=== PATIENT | female | born 1935 | race Hispanic/Latino ===

== ENCOUNTER 2017-05-24 12:56 | Emergency (ER) | payer MEDICARE, OTHER ==
[2017-05-24 12:56] VITALS: BMI 23.9
--- NOTE | 2017-05-24 13:58 | ED PDOC ---
Arrival/HPI - General Historian: Patient - History of Present Illness Time/Duration: Other (3 days.) Symptom Course: Worsening Quality: Aching Context: Home <Argelia Garza - Last Filed: 05/24/17 17:02> <Miguel Samson - Last Filed: 05/24/17 17:38> - General Chief Complaint: Back Pain Time Seen by Provider: 05/24/17 13:37 - History of Present Illness Narrative History of Present Illness (Text): 05/24/17 13:55 Patient is an 81 y/o with pmh of htn, hld, spinal stenosis s/p surgery, h/o Ed visits with knee pain, and falls presenting with back pain. Patient states she fell 3 days ago, and since then she has been experiencing lower back pain, worst when she tries to get up from seating position. Patient didn't try any pain meds at home. patient denies bowel or bladder incontinence. Patient states she recently saw Dr Anderson for right leg/knee pain, and was prescribed gabapentin 400 mg tid. patient states she took the med on two different occasions and each time she took it she fell. Denies hitting her head, states she fell forward. Denies cp, sob, n/v/d. Patient uses a walker to walk. Denies feeling dizzy and LOC prior to falling. (Argelia Garza) Past Medical History - Provider Review Nursing Documentation Reviewed: Yes - Travel History Have you recently traveled outside [place] w/in the past 3 mons?: No - Tetanus Immunization Tetanus Immunization: Unknown - Cardiac Hx Cardiac Disorders: Yes Hx Hypertension: Yes - Pulmonary Hx Respiratory Disorders: No - Neurological Hx Neurological Disorder: No - HEENT Hx HEENT Disorder: No - Renal Hx Renal Disorder: No - Endocrine/Metabolic Hx Endocrine Disorders: No - Hematological/Oncological Hx Blood Disorders: No - Integumentary Hx Dermatological Disorder: No - Musculoskeletal/Rheumatological Hx Musculoskeletal Disorders: Yes Hx Falls: Yes Hx Spinal Stenosis: Yes - Gastrointestinal Hx Gastrointestinal Disorders: No - Genitourinary/Gynecological Hx Genitourinary Disorders: No - Psychiatric Hx Psychophysiologic Disorder: No Hx Substance Use: No - Surgical History Other/Comment: benign right breast cyst "many yrs ago" - Anesthesia Hx Anesthesia Reactions: No Hx Malignant Hyperthermia: No - Suicidal Assessment Feels Threatened In Home Enviroment: No <Argelia Garza - Last Filed: 05/24/17 17:02> Family/Social History - Physician Review Nursing Documentation Reviewed: Yes Family/Social History: No Known Family HX Smoking Status: Never Smoked Hx Alcohol Use: No Hx Substance Use: No Hx Substance Use Treatment: No <MónicasaltyArgelia persaud - Last Filed: 05/24/17 17:02> Allergies/Home Meds <Argelia Garza - Last Filed: 05/24/17 17:02> <Eduardo Samsoncooper - Last Filed: 05/24/17 17:38> Allergies/Adverse Reactions: Allergies No Known Allergies Allergy (Verified 05/24/17 13:22) Home Medications: Home Meds Medication Instructions Recorded Confirmed ALPRAZolam [Xanax] 1 mg PO BID 01/09/17 05/24/17 Aspirin [Aspirin Chewable] 81 mg PO DAILY 01/09/17 05/24/17 Lisinopril [Zestril] 10 mg PO .AM 01/09/17 05/24/17 Nebivolol [Bystolic] 10 mg PO HS 01/09/17 05/24/17 Pravastatin Sodium [Pravachol] 40 mg PO HS 01/09/17 05/24/17 Calcium Carbonate/Vitamin D 1 tab PO DAILY 05/24/17 05/24/17 [Oscal-D 250 mg-125 Units Tab] Review of Systems - Review of Systems Constitutional: Normal Eyes: Normal ENT: Normal Respiratory: Normal Cardiovascular: Normal Gastrointestinal: Normal Genitourinary Female: Normal Musculoskeletal: Back Pain Skin: Normal Neurological: Normal Endocrine: Normal Hemo/Lymphatic: Normal Psychiatric: Normal <MónicasaltyArgelia persaud - Last Filed: 05/24/17 17:02> Physical Exam Vital Signs Reviewed: Yes Temperature: Afebrile Blood Pressure: Normal Pulse: Regular Respiratory Rate: Normal Appearance: Positive for: Well-Appearing, Non-Toxic, Comfortable Pain Distress: None Mental Status: Positive for: Alert and Oriented X 3 - Systems Exam Head: Present: Atraumatic, Normocephalic Pupils: Present: PERRL Mouth: Present: Moist Mucous Membranes Neck: Present: Normal Range of Motion. No: JVD Respiratory/Chest: Present: Clear to Auscultation, Good Air Exchange. No: Respiratory Distress, Accessory Muscle Use, Wheezes, Rales, Retracting, Rhonchi , Tachypneic Cardiovascular: Present: Regular Rate and Rhythm, Normal S1, S2. No: Murmurs, Tachycardic, Bradycardic Abdomen: Present: Normal Bowel Sounds. No: Tenderness, Distention, Rebound, Guarding Back: Present: Normal Inspection, Paraspinal Tenderness (on the right. ). No: CVA Tenderness, Midline Tenderness, Pain with Leg Raise, Decubitus Ulcer Upper Extremity: Present: Normal Inspection. No: Cyanosis, Edema Lower Extremity: No: Normal Inspection, Edema Neurological: Present: GCS=15, CN II-XII Intact, Speech Normal, Motor Func Grossly Intact, Normal Sensory Function, Other (limited ROM due to pain, L4-S1 region. Left lower extremities weaker than the right. ). No: Gait Normal ( unable to ambulate without a walker, pain when ambulating with a walker. ) Skin: Present: Warm, Dry, Normal Color. No: Rashes Psychiatric: Present: Alert, Oriented x 3, Normal Insight, Normal Concentration <Argelia Garza - Last Filed: 05/24/17 17:02> Medical Decision Making Re-evaluation Time: 16:40 Reassessment Condition: Improving,but remains with symptoms - Lab Interpretations I have reviewed the lab results: Yes - RAD Interpretation Sports Editor: ED Physician - EKG Interpretation Interpreted by ED Physician: Yes Type: 12 lead EKG <Argelia Garza - Last Filed: 05/24/17 17:02> <Miguel Samson - Last Filed: 05/24/17 17:38> ED Course and Treatment: 05/24/17 14:53 Patient is an 81 y/o with pmh of spinal stenosis s/p surgery 4 years ago, htn, hld, neuropathy presenting with lower back pain 2nd to falls. Differential diagnosis: spinal stenosis, herniated disc, muscle strain, compression fracture, OA Plan: CBC, CMP, CARDIAC ISO EKG, CHEST X-RAY L -SPINE X-RAY Tylenol for pain and Reassess Discussed with Dr Samson. 05/24/17 17:05 CT head with no acute ischemic changes, no hemorrhage. Basic labs are normal. Patient states the back pain has improved, however patient is still very weak in the left lower extremities. 05/24/17 17:[address] Dupree's call service, awaiting response. Spoke to patient about keeping her for observation for further work up to rule out spinal compression due to left lower extremities weakness, and difficulties with ambulation. Patient refused to stay. Patient states she rather go home and follow up as outpatient. Patient understands she can come back to the ED at anytime if symptoms worsens or persists. Patient is a&ox3, able to make medical decision for herself, understands the benefits of staying and risk of signing out AMA, including the risk of spinal compression fracture. Patient is able to repeat these plan. 05/24/17 17:23 Dr Samson spoke to Dr Dupree, Dr Dupree will be following up with the patient tomorrow. 05/24/17 17:26 Patient advised to take Tylenol as needed for pain. And return to the ED if symptoms worsens or have new symptoms. (Argelia Garza) 05/24/17 17:34 Patient seen and examined with medical observer. I interviewed patient and reviewed labs and imaging studies. On my exam, patient with some weakness noted to her left left with raising above bed, but reflexes intact, no incontinence of urine or stool, no headache, no facial droop, no weakness to upper extremities. There is midline lower lumbar pain with no fever, no edema, no erythema midline. There is MINIMAL pain with straight leg testing. No saddle anesthesia. Patient is noted to have symptoms of "falling" and "legs giving out" "ever since I was started on Gabapentin". Review of past available records reveal no recent lumbar imaging studies. Xray of lumbar spine and ct head reviewed with patient. I have recommended MRI of lumbar spine and brain base on left leg weakness, although she states she has been using a walker for months and denies any acute weakness. I have recommended admission for further evaluation of pain and weakness, patient was advised of indications, and risks of signing out against medical advice. Case discussed with Dr. Denzel Dupree, dispostion of AMA reviewed with PMD who states he will perform follow-up with patient tomorrow. (Miguel Samson) - Lab Interpretations Lab Results: 05/24/17 14:10 05/24/17 14:10 Lab Results 05/24/17 14:10: Sodium 139, Potassium 4.9, Chloride 104, Carbon Dioxide 24, Anion Gap 16, BUN 23 H, Creatinine 0.8, Est GFR ( Amer) > 60, Est GFR ( Non-Af Amer) > 60, Random Glucose 91, Calcium 10.2, Total Bilirubin 0.4, AST 20 , ALT 28, Alkaline Phosphatase 82, Lactate Dehydrogenase 516, Total Creatine Kinase 36, Troponin I < 0.01, Total Protein 8.1, Albumin 4.3, Globulin 3.8, Albumin/Globulin Ratio 1.1 05/24/17 14:10: WBC 10.4 D, RBC 3.67, Hgb 11.2 L, Hct 34.4 L, MCV 93.7, MCH 30.5, MCHC 32.6, RDW 14.1, Plt Count 341, MPV 10.3, Gran % 79.0 H, Lymph % (Auto ) 14.8 L, [place] % (Auto) 5.2, Eos % (Auto) 0.8 L, Baso % (Auto) 0.2, Gran # 8.25 H, Lymph # 1.5, [place] # 0.5, Eos # 0.1, Baso # 0.02 - RAD Interpretation Narrative RAD Interpretations (Text): 05/24/17 16:44 CT head w/o contrast: FINDINGS: HEMORRHAGE: No intracranial hemorrhage. BRAIN: There are mild chronic microangiopathic changes. There is no mass, mass effect or abnormal extra-axial fluid collection. VENTRICLES: There is mild age-related global parenchymal volume loss and proportionate enlargement of the ventricles and cortical sulci. CALVARIUM: There is no calvarial fracture or extracranial soft tissue swelling. There is mild hyperostosis frontalis interna. PARANASAL SINUSES: Unremarkable as visualized. No significant inflammatory changes. MASTOID AIR CELLS: Unremarkable as visualized. No inflammatory changes. OTHER FINDINGS: None. IMPRESSION: No acute intracranial abnormality. If there is a persistent focal neurologic deficit and an ongoing clinical concern for acute infarction, an MRI of the brain without intravenous contrast would be a more sensitive modality for evaluation of hyperacute/acute ischemic infarction. Mild chronic microangiopathic changes and mild age-related global parenchymal volume loss. (Argelia Garza) Radiology Orders: 05/24/17 13:51 LS SPINE WITH OBL > 18 YRS OLD [RAD] Stat 05/24/17 14:09 CHEST ONE VIEW [RAD] Stat 05/24/17 15:11 HEAD W/O CONTRAST [CT] Stat - EKG Interpretation EKG Interpretation (Text): 05/24/17 16:46 NSR at HR of 73 bmp. No MO or QTC prolongation normal axis No acute ST/T wave changes. (Argelia Garza) - Medication Orders Current Medication Orders: Discontinued Medications Acetaminophen (Tylenol 325mg Tab) 650 mg PO STAT STA Stop: 05/24/17 14:13 Last Admin: 05/24/17 14:45 Dose: 650 mg - PA / RECYCLING TECHNICIAN / Resident Statement / has reviewed & agrees with the documentation as recorded. / has examined the patient and agrees with the treatment plan. <Miguel Samson - Last Filed: 05/24/17 17:38> Disposition/Present on Arrival - Present on Arrival Any Indicators Present on Arrival: No History of DVT/PE: No History of Uncontrolled Diabetes: No Urinary Catheter: No History of Decub. Ulcer: No History Surgical Site Infection Following: None - Disposition Have Diagnosis and Disposition been Completed?: No Disposition Time: 17:26 <Argelia Garza - Last Filed: 05/24/17 17:02> - Disposition Have Diagnosis and Disposition been Completed?: Yes Patient Plan: Discharge <Miguel Samson - Last Filed: 05/24/17 17:38> - Disposition Diagnosis: Back pain, Leg weakness Disposition: AGAINST MEDICAL ADVICE Patient Problems: Current Active Problems Problem Status Onset Back pain Acute Condition: STABLE Referrals: Joaquin Dupree MD [Primary Care Provider] - Follow up with primary
[2017-05-24 14:41] LABS: ADD MANUAL DIFF? NO
[2017-05-24 14:46] LABS: BASO # 0.02 K/mm3 (0.0-2.0); BASO % 0.2 % (0.0-3.0); EOS # 0.1 (0.0-0.7); EOS % 0.8 % (1.5-5.0); GRAN # 8.25 (1.4-6.5); HEMATOCRIT 34.4 % (36.0-48.0); LYMPH # 1.5 (1.2-3.4); LYMPH % 14.8 % (22.0-35.0); MEAN CELL VOLUME 93.7 fL (80.0-105.0); MEAN CORPUSCULAR HEMOGLOBIN 30.5 pg (25.0-35.0); MEAN CORPUSCULAR HGB CONC 32.6 g/dl (31.0-37.0); MEAN PLATELET VOLUME 10.3 fl (7.0-11.0); MONO # 0.5 (0.1-0.6); MONO % 5.2 % (1.0-6.0); PLATELET COUNT 341 10^3/uL (120.0-450.0); RED CELL DISTRIBUTION WIDTH 14.1 % (11.5-14.5); WHITE BLOOD COUNT 10.4 10^3/ul (4.5-11.0)
[2017-05-24 14:55] LABS: ALB/GLOB RATIO 1.1 (1.1-1.8); ALKALINE PHOSPHATASE 82 U/L (38-133); ALT/SGPT 28 U/L (7-56); AST/SGOT 20 U/L (15-39); BILIRUBIN,TOTAL 0.4 mg/dL (0.2-1.3); BLOOD UREA NITROGEN 23 mg/dL (7-21); CALCIUM 10.2 mg/dL (8.4-10.5); CARBON DIOXIDE 24 mmol/L (21-33); CHLORIDE 104 mmol/L (98-107); GFR AFRICAN-AMERICAN > 60; GLUCOSE,RANDOM 91 mg/dL (70-110); POTASSIUM 4.9 mmol/L (3.6-5.0); SODIUM 139 mmol/L (132-148); TOTAL PROTEIN 8.1 g/dL (5.8-8.3)
[2017-05-24 15:06] LABS: TROPONIN I < 0.01 ng/mL
--- NOTE | 2017-05-24 15:37 | CT ---
PROCEDURE: CT HEAD WITHOUT CONTRAST. HISTORY: Left leg weakness COMPARISON: 06/07/2011. TECHNIQUE: Axial computed tomography images were obtained through the head/brain without intravenous contrast. Radiation dose: Total exam DLP = 769.04 mGy-cm. This CT exam was performed using one or more of the following dose reduction techniques: Automated exposure control, adjustment of the mA and/or kV according to patient size, and/or use of iterative reconstruction technique. FINDINGS: HEMORRHAGE: No intracranial hemorrhage. BRAIN: There are mild chronic microangiopathic changes. There is no mass, mass effect or abnormal extra-axial fluid collection. VENTRICLES: There is mild age-related global parenchymal volume loss and proportionate enlargement of the ventricles and cortical sulci. CALVARIUM: There is no calvarial fracture or extracranial soft tissue swelling. There is mild hyperostosis frontalis interna. PARANASAL SINUSES: Unremarkable as visualized. No significant inflammatory changes. MASTOID AIR CELLS: Unremarkable as visualized. No inflammatory changes. OTHER FINDINGS: None. IMPRESSION: No acute intracranial abnormality. If there is a persistent focal neurologic deficit and an ongoing clinical concern for acute infarction, an MRI of the brain without intravenous contrast would be a more sensitive modality for evaluation of hyperacute/acute ischemic infarction. Mild chronic microangiopathic changes and mild age-related global parenchymal volume loss.
--- NOTE | 2017-05-24 17:32 | RAD ---
PROCEDURE: Radiographs of the Lumbar Spine. HISTORY: fall COMPARISON: No prior. FINDINGS: BONES: Normal alignment. No listhesis. No fracture. DISC SPACES: Disc degeneration at L5-S1 OTHER FINDINGS: There is laminectomy at the L5 level. 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 Laminectomy at the L5 level
--- NOTE | 2017-05-24 17:32 | RAD ---
PROCEDURE: CHEST RADIOGRAPH, 1 VIEW HISTORY: fall COMPARISON: 02/25/2014 FINDINGS: LUNGS: Clear. PLEURA: No pneumothorax or pleural fluid seen. CARDIOVASCULAR: Normal. OSSEOUS STRUCTURES: No significant abnormalities. VISUALIZED UPPER ABDOMEN: Normal. OTHER FINDINGS: None. IMPRESSION: No active disease.
[2017-05-24 17:34] VITALS: BP 118/73; PULSE 72; RESP 18; TEMP 97.6; O2SAT 99
--- NOTE | 2017-05-24 22:05 | CARD ---
APPROVED REPORT EKG Measurement Heart [id number] <Conclusion> Normal sinus rhythm Normal ECG
== END 2017-05-24 17:40 | disposition left against medical advice (07) ==
LOC: ED 12:56
DX: M54.9 Dorsalgia, unspecified (principal); R53.1 Weakness; I10 Essential (primary) hypertension; E78.5 Hyperlipidemia, unspecified

== ENCOUNTER 2017-05-26 14:08 | Emergency (ER) | payer MEDICARE, OTHER ==
[2017-05-26 14:43] VITALS: PULSE 77; RESP 16; TEMP 98; O2SAT 99; BMI 26.4
--- NOTE | 2017-05-26 15:28 | ED PDOC ---
Arrival/HPI - General Chief Complaint: Back Pain Time Seen by Provider: 05/26/17 14:39 Historian: Patient - History of Present Illness Narrative History of Present Illness (Text): 05/26/17 15:21 81 year old female whose past medical history includes hypertension, hyperlipidemia, and spinal stenosis presents to the emergency department complaining of back pain for the past few days. She states she saw her neurologist and was given Gabapentin 400 but it was too strong and caused her to fall 3 times last week. Patient reports she was seen in the ER 2 days ago but did not want admission. Denies leg weakness or numbness. Previous notes say weakness but she states that she never had leg weakness. Denies urinary symptoms. No recent follow up with an orthopedist or surgeon. PMD: Dr. Dupree Neurologist: Dr. Smith Time/Duration: < week Symptom Onset: Gradual Symptom Course: Unchanged Associated Symptoms (Text): None Past Medical History - Provider Review Nursing Documentation Reviewed: Yes - Tetanus Immunization Tetanus Immunization: Unknown - Cardiac Hx Cardiac Disorders: Yes Hx Hypertension: Yes - Pulmonary Hx Respiratory Disorders: No - Neurological Hx Neurological Disorder: No - HEENT Hx HEENT Disorder: No - Renal Hx Renal Disorder: No - Endocrine/Metabolic Hx Endocrine Disorders: No - Hematological/Oncological Hx Blood Disorders: No - Integumentary Hx Dermatological Disorder: No - Musculoskeletal/Rheumatological Hx Musculoskeletal Disorders: Yes Hx Falls: Yes Hx Spinal Stenosis: Yes - Gastrointestinal Hx Gastrointestinal Disorders: No - Genitourinary/Gynecological Hx Genitourinary Disorders: No - Psychiatric Hx Psychophysiologic Disorder: No Hx Substance Use: No - Surgical History Other/Comment: benign right breast cyst "many yrs ago" - Anesthesia Hx Anesthesia Reactions: No Hx Malignant Hyperthermia: No - Suicidal Assessment Feels Threatened In Home Enviroment: No Family/Social History - Physician Review Nursing Documentation Reviewed: Yes Family/Social History: Unknown Family HX Smoking Status: Never Smoked Hx Alcohol Use: No Hx Substance Use: No Hx Substance Use Treatment: No Allergies/Home Meds Allergies/Adverse Reactions: Allergies No Known Allergies Allergy (Verified 05/24/17 13:22) Home Medications: Home Meds Medication Instructions Recorded Confirmed ALPRAZolam [Xanax] 1 mg PO BID 01/09/17 05/26/17 Aspirin [Aspirin Chewable] 81 mg PO DAILY 01/09/17 05/26/17 Lisinopril [Zestril] 10 mg PO .AM 01/09/17 05/26/17 Nebivolol [Bystolic] 10 mg PO HS 01/09/17 05/26/17 Pravastatin Sodium [Pravachol] 40 mg PO HS 01/09/17 05/26/17 Calcium Carbonate/Vitamin D 1 tab PO DAILY 05/24/17 05/26/17 [Oscal-D 250 mg-125 Units Tab] Review of Systems - Physician Review All systems were reviewed & negative as marked: Yes - Review of Systems Genitourinary Female: absent: Dysuria, Frequency, Hematuria Musculoskeletal: Back Pain Neurological: Other (No lower extremity weakness or numbness ) Physical Exam Vital Signs Reviewed: Yes Vital Signs Temp Pulse Resp BP Pulse Ox 05/26/17 15:41 157/64 H 05/26/17 14:41 98.0 F 77 16 121/64 99 Temperature: Afebrile Blood Pressure: Normal Pulse: Regular Respiratory Rate: Normal Appearance: Positive for: Well-Appearing, Non-Toxic, Uncomfortable Pain Distress: Mild Mental Status: Positive for: Alert and Oriented X 3 - Systems Exam Head: Present: Atraumatic, Normocephalic Pupils: Present: PERRL Extroacular Muscles: Present: EOMI Conjunctiva: Present: Normal Mouth: Present: Moist Mucous Membranes Neck: Present: Normal Range of Motion Respiratory/Chest: Present: Clear to Auscultation, Good Air Exchange. No: Respiratory Distress, Accessory Muscle Use Cardiovascular: Present: Regular Rate and Rhythm, Normal S1, S2. No: Murmurs Abdomen: Present: Normal Bowel Sounds. No: Tenderness, Distention, Peritoneal Signs Back: No: CVA Tenderness, Midline Tenderness, Paraspinal Tenderness, Pain with Leg Raise Upper Extremity: Present: Normal Inspection. No: Cyanosis, Edema Lower Extremity: Present: Normal Inspection. No: Edema Neurological: Present: GCS=15, CN II-XII Intact, Speech Normal, Motor Func Grossly Intact, Normal Sensory Function, Normal Cerebellar Funct, Norm Deep Tendon Reflexes, Gait Normal (No ataxia), Memory Normal, Normal 2Pt Descrimination Skin: Present: Warm, Dry, Normal Color. No: Rashes Psychiatric: Present: Alert, Oriented x 3, Normal Insight, Normal Concentration Medical Decision Making ED Course and Treatment: Impression: 81 year old female whose past medical history includes hypertension , hyperlipidemia, and spinal stenosis presents to the emergency department complaining of back pain for the past few days. Differential Diagnosis included but are not limited to: Acute on Chronic Back Pain Plan: -- Flexeril, Toradol -- Reassess and disposition Prior Visits: Notes and results from previous visits were reviewed. Patient last seen in the ED on 05/24/17 for back pain and signed out AMA. Progress Notes: Upon reevaluation, patient felt much better. She is able to walk without ataxia. On exam she has no injuries. She denies lightheadedness or dizziness. She will make sure to follow up with her primary care doctor in 1-2days to discuss options for her chronic back pain. - Medication Orders Current Medication Orders: Discontinued Medications Cyclobenzaprine HCl (Flexeril) 5 mg PO STAT STA Stop: 05/26/17 14:51 Last Admin: 05/26/17 15:32 Dose: 5 mg Ketorolac Tromethamine (Toradol) 30 mg IM STAT STA Stop: 05/26/17 14:51 Last Admin: 05/26/17 15:32 Dose: 30 mg - Scribe Statement The provider has reviewed the documentation as recorded by the Ted Baker Provider Scribe Attestation: All medical record entries made by the Ted were at my direction and personally dictated by me. I have reviewed the chart and agree that the record accurately reflects my personal performance of the history, physical exam, medical decision making, and the department course for this patient. I have also personally directed, reviewed, and agree with the discharge instructions and disposition. Disposition/Present on Arrival - Present on Arrival Any Indicators Present on Arrival: No History of DVT/PE: No History of Uncontrolled Diabetes: No Urinary Catheter: No History of Decub. Ulcer: No History Surgical Site Infection Following: None - Disposition Have Diagnosis and Disposition been Completed?: Yes Diagnosis: Back pain Disposition: HOME/ ROUTINE Disposition Time: 16:17 Patient Plan: Discharge Condition: IMPROVED Discharge Instructions (ExitCare): Back Pain (ED) Additional Instructions: Ms Laird, thank you for letting us take care of you today. Your provider was Dr. Ward. You were treated for Back Pain. The emergency medical care you received today was directed at your acute symptoms. If you were prescribed any medication, please fill it and take as directed. It may take several days for your symptoms to resolve. Return to the Emergency Department if your symptoms worsen, do not improve, or if you have any other problems. Please contact your doctor or call one of the physicians/clinics you have been referred to that are listed on the Patient Visit Information form that is included in your discharge packet. Bring any paperwork you were given at discharge with you along with any medications you are taking to your follow up visit. Our treatment cannot replace ongoing medical care by a primary care provider (PCP) outside of the emergency department. Thank you for allowing the [facility] team to be part of your care today. If you had an X-Ray or CT scan: A Radiologist will review the ED reading if any change in treatment is needed we will contact you. If you had a blood, urine, or wound culture: It will take several days for the results, if any change in treatment is needed we will contact you. If you had an STI test: It will take 48 hours for the results. Please call after 1 week if you have not heard back. Prescriptions: Cyclobenzaprine [Flexeril] 5 mg PO Q8 PRN #20 tab PRN Reason: Pain, Moderate (4-7) Naproxen 500 mg PO BID PRN #30 tab PRN Reason: Pain, Moderate (4-7) Referrals: Joaquin Dupree MD [Primary Care Provider] - Follow up with primary
[2017-05-26 15:41] VITALS: BP 157/64
== END 2017-05-26 16:17 | disposition home or self-care (01) ==
LOC: ED 14:08
DX: M54.9 Dorsalgia, unspecified (principal); I10 Essential (primary) hypertension
CPT/HCPCS: 96372; 99284; J1885

== ENCOUNTER 2017-07-12 10:36 | Emergency (ER) | payer MEDICARE, OTHER ==
[2017-07-12 10:36] VITALS: BMI 26.4
[2017-07-12 10:58] VITALS: TEMP 98.4
--- NOTE | 2017-07-12 11:15 | ED PDOC ---
Arrival/HPI - General Chief Complaint: Headache Time Seen by Provider: 07/12/17 10:48 Historian: Patient - History of Present Illness Narrative History of Present Illness (Text): 07/12/17 10:50 A 82 year old female, whose past medical history includes hypertension, hyperlipidemia, and spinal stenosis, presents to the emergency department complaining of headache since last night. Patient reports had a fall on June 13 and had no headache post-fall. No other falls. She took Aleve for the headache but did not relieve symptom. Patient denies any numbness/weakness, focal weakness, speech changse, head trauma, or any other complaints. Patient ambulates with walker. PMD: Dr. Dupree Time/Duration: Other (20:30 last night) Symptom Onset: Sudden Symptom Course: Unchanged Severity Level: 6 Activities at Onset: Rest, Light Context: Home Past Medical History - Provider Review Nursing Documentation Reviewed: Yes - Infectious Disease Hx of Infectious Diseases: None - Tetanus Immunization Tetanus Immunization: Unknown - Reproductive Menopause: Yes - Cardiac Hx Cardiac Disorders: Yes Hx Hypertension: Yes - Pulmonary Hx Respiratory Disorders: No - Neurological Hx Neurological Disorder: No - HEENT Hx HEENT Disorder: No - Renal Hx Renal Disorder: No - Endocrine/Metabolic Hx Endocrine Disorders: No - Hematological/Oncological Hx Blood Disorders: No - Integumentary Hx Dermatological Disorder: No - Musculoskeletal/Rheumatological Hx Musculoskeletal Disorders: Yes Hx Falls: Yes Hx Spinal Stenosis: Yes - Gastrointestinal Hx Gastrointestinal Disorders: No - Genitourinary/Gynecological Hx Genitourinary Disorders: No - Psychiatric Hx Psychophysiologic Disorder: No Hx Substance Use: No - Surgical History Other/Comment: benign right breast cyst "many yrs ago" - Anesthesia Hx Anesthesia Reactions: No Hx Malignant Hyperthermia: No - Suicidal Assessment Feels Threatened In Home Enviroment: No Family/Social History - Physician Review Nursing Documentation Reviewed: Yes Family/Social History: No Known Family HX Smoking Status: Never Smoked Hx Alcohol Use: No Hx Substance Use: No Hx Substance Use Treatment: No Allergies/Home Meds Allergies/Adverse Reactions: Allergies No Known Allergies Allergy (Verified 05/24/17 13:22) Home Medications: Home Meds Medication Instructions Recorded Confirmed ALPRAZolam [Xanax] 1 mg PO BID 01/09/17 07/12/17 Aspirin [Aspirin Chewable] 81 mg PO DAILY 01/09/17 07/12/17 Nebivolol [Bystolic] 10 mg PO HS 01/09/17 07/12/17 Pravastatin Sodium [Pravachol] 40 mg PO HS 01/09/17 07/12/17 Alprazolam [Xanax Xr] 1 mg PO PRN 07/12/17 07/12/17 Calcium Carbonate/Vitamin D 1 tab PO DAILY 07/12/17 07/12/17 [Oyster Shell Calcium/Vitamin D 250 MG-125 Iu] Lisinopril [Zestril] 10 mg PO DAILY 07/12/17 07/12/17 Pregabalin [Lyrica] 75 mg PO BID 07/12/17 07/12/17 Review of Systems - Review of Systems Constitutional: absent: Fevers, Night Sweats Eyes: Normal ENT: Normal Respiratory: absent: SOB Cardiovascular: absent: Chest Pain, Palpitations Gastrointestinal: absent: Abdominal Pain, Nausea, Vomiting Genitourinary Female: Normal Musculoskeletal: Normal Skin: Normal Neurological: Headache. absent: Focal Weakness, Speech Changes, Other (numbness /weakness) Endocrine: Normal Hemo/Lymphatic: Normal Psychiatric: Normal Physical Exam Vital Signs Reviewed: Yes Vital Signs Temp Pulse Resp BP Pulse Ox 07/12/17 12:15 56 L 18 105/64 97 07/12/17 10:53 98.4 F 88 16 121/61 99 Temperature: Afebrile Blood Pressure: Normal Pulse: Regular Respiratory Rate: Normal Appearance: Positive for: Well-Appearing Pain Distress: None Mental Status: Positive for: Alert and Oriented X 3 - Systems Exam Head: Present: Atraumatic, Normocephalic. No: Tenderness, Contusion, Swelling, Ecchymosis, Abrasion, Laceration Pupils: Present: PERRL Extroacular Muscles: Present: EOMI Conjunctiva: Present: Normal Mouth: Present: Moist Mucous Membranes Neck: Present: Normal Range of Motion Respiratory/Chest: Present: Clear to Auscultation, Good Air Exchange. No: Respiratory Distress, Accessory Muscle Use Cardiovascular: Present: Regular Rate and Rhythm, Normal S1, S2. No: Murmurs Abdomen: Present: Normal Bowel Sounds. No: Tenderness, Distention, Peritoneal Signs Back: No: Midline Tenderness Upper Extremity: Present: Normal Inspection. No: Cyanosis, Edema Lower Extremity: Present: Normal Inspection. No: Edema Neurological: Present: GCS=15, CN II-XII Intact, Speech Normal, Motor Func Grossly Intact, Normal Sensory Function, Normal Cerebellar Funct, Gait Normal, Memory Normal, Normal 2Pt Descrimination Skin: Present: Warm, Dry, Normal Color. No: Rashes Psychiatric: Present: Alert, Oriented x 3, Normal Insight, Normal Concentration Medical Decision Making ED Course and Treatment: 07/12/17 11:00 Impression: 82 year old female with headache. Normal physical exam, no midline tenderness, normal neuro exam, no head problems. Differential Diagnosis included but are not limited to: Headache vs. Intercranial hemorrhage Plan: -- Head CT -- Tylenol -- Reassess and disposition Prior Visits: Notes and results from previous visits were reviewed. On 05/26/2017 for back pain. Patient was discharged home. Progress Notes: 07/12/2017 11:[address] IMPRESSION: Normal CT of the Head. Dictator : Amador Lopez MD 07/12/17 12:05 Patient is now feeling better, no complaints. Will be following up with Dr. Dupree. On re-evaluation, patient feels better and is in no acute distress. I have discussed the results and plan with the patient, who expresses understanding. Patient in agreement with plan to be discharged home. Patient is stable for discharge. Patient was instructed to follow up with physician/clinic in 1-2 days or return if symptoms worsen or new concerning symptoms arise. - RAD Interpretation Radiology Orders: 07/12/17 10:56 HEAD W/O CONTRAST [CT] Stat - Medication Orders Current Medication Orders: Discontinued Medications Acetaminophen (Tylenol 325mg Tab) 975 mg PO STAT STA Stop: 07/12/17 10:57 Last Admin: 07/12/17 11:03 Dose: 975 mg Re-Assess: GREG Pain/Vitals Document 07/12/17 12:03 [facility] (Rec: 07/12/17 12:23 [facility] [id number]) Pain Reassessment Is This A Pain ReAssessment? Yes Presence of Pain Presence of Pain No - Scribe Statement The provider has reviewed the documentation as recorded by the Rikkiibarmin Monaco Provider Scribe Attestation: All medical record entries made by the Scribe were at my direction and personally dictated by me. I have reviewed the chart and agree that the record accurately reflects my personal performance of the history, physical exam, medical decision making, and the department course for this patient. I have also personally directed, reviewed, and agree with the discharge instructions and disposition. Disposition/Present on Arrival - Present on Arrival Any Indicators Present on Arrival: No History of DVT/PE: No History of Uncontrolled Diabetes: No Urinary Catheter: No History of Decub. Ulcer: No History Surgical Site Infection Following: None - Disposition Have Diagnosis and Disposition been Completed?: Yes Diagnosis: Headache Disposition: HOME/ ROUTINE Disposition Time: 12:05 Patient Plan: Discharge Condition: IMPROVED Discharge Instructions (ExitCare): Acute Headache (ED) Additional Instructions: Ms Laird, thank you for letting us take care of you today. Your provider was Dr. Ward. You were treated for Headache. The emergency medical care you received today was directed at your acute symptoms. If you were prescribed any medication, please fill it and take as directed. It may take several days for your symptoms to resolve. Return to the Emergency Department if your symptoms worsen, do not improve, or if you have any other problems. Please contact your doctor or call one of the physicians/clinics you have been referred to that are listed on the Patient Visit Information form that is included in your discharge packet. Bring any paperwork you were given at discharge with you along with any medications you are taking to your follow up visit. Our treatment cannot replace ongoing medical care by a primary care provider (PCP) outside of the emergency department. Thank you for allowing the [facility] team to be part of your care today. If you had an X-Ray or CT scan: A Radiologist will review the ED reading if any change in treatment is needed we will contact you. If you had a blood, urine, or wound culture: It will take several days for the results, if any change in treatment is needed we will contact you. If you had an STI test: It will take 48 hours for the results. Please call after 1 week if you have not heard back. Prescriptions: Ibuprofen [Motrin] 600 mg PO Q6 PRN #30 tab PRN Reason: Pain, Moderate (4-7) Referrals: Joaquin Dupree MD [Family Provider] - Follow up with primary Forms: [employer] (Macedonian)
--- NOTE | 2017-07-12 11:58 | CT ---
PROCEDURE: CT HEAD WITHOUT CONTRAST. HISTORY: fall r/o ich COMPARISON: None available. TECHNIQUE: Axial computed tomography images were obtained through the head/brain without intravenous contrast. Radiation dose: Total exam DLP = 700 mGy-cm. This CT exam was performed using one or more of the following dose reduction techniques: Automated exposure control, adjustment of the mA and/or kV according to patient size, and/or use of iterative reconstruction technique. FINDINGS: HEMORRHAGE: No intracranial hemorrhage. BRAIN: No mass effect or edema. No atrophy or chronic microvascular ischemic changes. VENTRICLES: Unremarkable. No hydrocephalus. CALVARIUM: Unremarkable. PARANASAL SINUSES: Unremarkable as visualized. No significant inflammatory changes. MASTOID AIR CELLS: Unremarkable as visualized. No inflammatory changes. OTHER FINDINGS: None. IMPRESSION: Normal CT of the Head.
[2017-07-12 12:20] VITALS: BP 105/64; PULSE 56; RESP 18; O2SAT 97
== END 2017-07-12 12:20 | disposition home or self-care (01) ==
LOC: ED 10:36
DX: R51 Headache (principal); I10 Essential (primary) hypertension; E78.5 Hyperlipidemia, unspecified

== ENCOUNTER 2017-10-29 10:04 | Emergency (ER) | payer MEDICARE, OTHER ==
[2017-10-29 10:53] VITALS: BMI 25.4
[2017-10-29 10:57] VITALS: RESP 20; TEMP 98; O2SAT 98
--- NOTE | 2017-10-29 11:16 | ED PDOC ---
Arrival/HPI - General Historian: Patient - History of Present Illness Time/Duration: < week Symptom Onset: Gradual Symptom Course: Intermittent Quality: Aching, Dullness, Gas Like Severity Level: 5 Activities at Onset: Rest - General Chief Complaint: Chest Pain Time Seen by Provider: 10/29/17 10:46 - History of Present Illness Narrative History of Present Illness (Text): This patient is an 82 year old female who presents to the ED complaining of non- radiating, reproducible, 4/10, dull and achy chest pain that began on Tuesday. Pain is directly on her sternum. Patient states the pain is intermittent. She denies any aggravating or relieving factors. Patient had pain like this in the past due to gas so she attempted to take tums to relieve the pain which was unsuccessful. She denies any fevers, chills, lightheadedness , dizziness, SOB, abdominal pain, nausea, vomiting, diarrhea, or constipation. Of note, patient was diagnosed with cystitis and prescribed 5 days of ciprofloxacin by her PMD. She finished her last dose yesterday but continues to complain of burning during urination. She denies any incontinence or increased urinary frequency. ROS POSITIVES: chest pain, dysuria NEGATIVES: fevers, chills, lightheadedness, dizziness, SOB, abdominal pain, nausea, vomiting, diarrhea, constipation, urinary incontinence, urinary frequency, hematuria PMHx: HTN, HLD, spinal stenosis, spinal cyst, cystitis PSHx: back surgery (2006), breast cyst removal (Unsure of date but before 1999) Allergies: NKDA Social Hx: Denies tobacco, alcohol, or ilicit drug use Fam Hx: IA - Brother Meds: Reviewed (David Benavides) Past Medical History - Provider Review Nursing Documentation Reviewed: Yes - Infectious Disease Hx of Infectious Diseases: None - Tetanus Immunization Tetanus Immunization: Unknown - Reproductive Menopause: Yes - Cardiac Hx Cardiac Disorders: Yes Hx Hypertension: Yes - Pulmonary Hx Respiratory Disorders: No - Neurological Hx Neurological Disorder: No - HEENT Hx HEENT Disorder: No - Renal Hx Renal Disorder: No - Endocrine/Metabolic Hx Endocrine Disorders: No - Hematological/Oncological Hx Blood Disorders: No - Integumentary Hx Dermatological Disorder: No - Musculoskeletal/Rheumatological Hx Musculoskeletal Disorders: Yes Hx Falls: Yes Hx Spinal Stenosis: Yes - Gastrointestinal Hx Gastrointestinal Disorders: No - Genitourinary/Gynecological Hx Genitourinary Disorders: No - Psychiatric Hx Psychophysiologic Disorder: No Hx Substance Use: No - Surgical History Other/Comment: benign right breast cyst "many yrs ago" - Anesthesia Hx Anesthesia: Yes Hx Anesthesia Reactions: No Hx Malignant Hyperthermia: No - Suicidal Assessment Feels Threatened In Home Enviroment: No Family/Social History - Physician Review Nursing Documentation Reviewed: Yes Family/Social History: CAD/IA Smoking Status: Never Smoked Hx Alcohol Use: No Hx Substance Use: No Hx Substance Use Treatment: No Allergies/Home Meds Allergies/Adverse Reactions: Allergies No Known Allergies Allergy (Verified 10/29/17 10:57) Home Medications: Home Meds Medication Instructions Recorded Confirmed ALPRAZolam [Xanax] 1 mg PO BID 01/09/17 07/12/17 Aspirin [Aspirin Chewable] 81 mg PO DAILY 01/09/17 07/12/17 Nebivolol [Bystolic] 10 mg PO HS 01/09/17 07/12/17 Pravastatin Sodium [Pravachol] 40 mg PO HS 01/09/17 07/12/17 Alprazolam [Xanax Xr] 1 mg PO PRN 07/12/17 07/12/17 Calcium Carbonate/Vitamin D 1 tab PO DAILY 07/12/17 07/12/17 [Oyster Shell Calcium/Vitamin D 250 MG-125 Iu] Lisinopril [Zestril] 10 mg PO DAILY 07/12/17 07/12/17 Pregabalin [Lyrica] 75 mg PO BID 07/12/17 07/12/17 Review of Systems - Physician Review All systems were reviewed & negative as marked: Yes (As per HPI) - Review of Systems Respiratory: Normal. absent: SOB Cardiovascular: Chest Pain Gastrointestinal: Normal. absent: Abdominal Pain Physical Exam Vital Signs Reviewed: Yes Temperature: Afebrile Blood Pressure: Hypertensive Pulse: Bradycardic Respiratory Rate: Normal Appearance: Positive for: Well-Appearing, Non-Toxic, Comfortable Pain Distress: Mild Mental Status: Positive for: Alert and Oriented X 3 - Systems Exam Head: Present: Atraumatic, Normocephalic Extroacular Muscles: Present: EOMI Conjunctiva: Present: Normal Mouth: Present: Moist Mucous Membranes Pharnyx: Present: Normal Nose (External): Present: Atraumatic Respiratory/Chest: Present: Clear to Auscultation, Tender to Palpation (Mid sternum ). No: Respiratory Distress, Accessory Muscle Use, Wheezes, Rales, Rhonchi Cardiovascular: Present: Normal S1, S2, Bradycardic. No: Murmurs, Tachycardic, Rub, Gallop, Muffled Abdomen: Present: Normal Bowel Sounds. No: Tenderness, Distention Neurological: Present: GCS=15, Speech Normal Lymphatic: No: Cervical Adenopathy Psychiatric: Present: Alert, Oriented x 3, Normal Affect, Normal Mood Vital Signs Temp Pulse Resp BP Pulse Ox 10/29/17 10:54 98 F 75 20 148/76 98 10/29/17 10:53 98.7 F 57 L 18 159/73 H 97 Medical Decision Making - Lab Interpretations I have reviewed the lab results: Yes - RAD Interpretation Traffic Safety Administrator: ED Physician - EKG Interpretation Interpreted by ED Physician: Yes ED Course and Treatment: 10/29/17 12:23 Isha Laird is an 82 year old female who presents to the emergency department today complaining of reproducible chest pain and dysuira. In agreement with resident note, which includes further HPI details. Patient was seen and evaluated with resident, came up with plan and treatment together. 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 Currently patient is hemodynamically stable. --Patient asked to follow up with her PMD. (David Benavides) - Lab Interpretations Lab Results: 10/29/17 11:25 10/29/17 11:25 Lab Results 10/29/17 11:25: Sodium 131 L, Potassium 4.4, Chloride 99, Carbon Dioxide 23, Anion Gap 14, BUN 20, Creatinine 0.7, Est GFR ( Amer) > 60, Est GFR (Non- Af Amer) > 60, Random Glucose 102, Calcium 9.9, Magnesium 1.8, Total Bilirubin 0.6, AST 25, ALT 35, Alkaline Phosphatase 64, Lactate Dehydrogenase 461, Total Creatine Kinase 82, Troponin I < 0.01, Total Protein 7.7, Albumin 4.4, Globulin 3.3, Albumin/Globulin Ratio 1.3 10/29/17 11:25: WBC 7.5 D, RBC 3.70, Hgb 11.3 L, Hct 33.9 L, MCV 91.6, MCH 30.5 , MCHC 33.3, RDW 13.1, Plt Count 306, MPV 11.0, Gran % 72.6 H, Lymph % (Auto) 19.6 L, [place] % (Auto) 7.1 H, Eos % (Auto) 0.3 L, Baso % (Auto) 0.4, Gran # 5.41 , Lymph # 1.5, [place] # 0.5, Eos # 0.0, Baso # 0.03 - RAD Interpretation Radiology Orders: 10/29/17 11:10 CHEST PORTABLE [RAD] Stat - Medication Orders Current Medication Orders: Discontinued Medications Aspirin (Aspirin) 325 mg PO STAT STA Stop: 10/29/17 11:11 Last Admin: 10/29/17 11:17 Dose: 325 mg Disposition/Present on Arrival - Present on Arrival Any Indicators Present on Arrival: No History of DVT/PE: No History of Uncontrolled Diabetes: No Urinary Catheter: No History of Decub. Ulcer: No History Surgical Site Infection Following: None - Disposition Have Diagnosis and Disposition been Completed?: Yes Disposition Time: 12:37 Patient Plan: Discharge - Disposition Diagnosis: Chest pain Disposition: HOME/ ROUTINE Condition: STABLE Discharge Instructions (ExitCare): Chest Pain (ED) Additional Instructions: Please follow up with your primary medical physician. Referrals: Joaquin Dupree MD [Primary Care Provider] - Follow up with primary Forms: [employer] (Upper Sorbian)
[2017-10-29 11:36] LABS: BASO # 0.03 K/mm3 (0.0-2.0); BASO % 0.4 % (0.0-3.0); EOS % 0.3 % (1.5-5.0); GRAN # 5.41 (1.4-6.5); GRAN % 72.6 % (50.0-68.0); HEMATOCRIT 33.9 % (36.0-48.0); LYMPH # 1.5 (1.2-3.4); LYMPH % 19.6 % (22.0-35.0); MEAN CELL VOLUME 91.6 fl (80.0-105.0); MEAN CORPUSCULAR HEMOGLOBIN 30.5 pg (25.0-35.0); MEAN CORPUSCULAR HGB CONC 33.3 g/dl (31.0-37.0); MONO # 0.5 (0.1-0.6); MONO % 7.1 % (1.0-6.0); RED CELL DISTRIBUTION WIDTH 13.1 % (11.5-14.5); WHITE BLOOD COUNT 7.5 10^3/ul (4.5-11.0)
[2017-10-29 11:50] LABS: ALB/GLOB RATIO 1.3 (1.1-1.8); ALKALINE PHOSPHATASE 64 U/L (38-126); ALT/SGPT 35 U/L (7-56); AST/SGOT 25 U/L (14-36); BILIRUBIN,TOTAL 0.6 mg/dL (0.2-1.3); BLOOD UREA NITROGEN 20 mg/dL (7-21); CALCIUM 9.9 mg/dL (8.4-10.5); CARBON DIOXIDE 23 mmol/L (21-33); CHLORIDE 99 mmol/L (98-107); GFR AFRICAN-AMERICAN > 60; GLUCOSE,RANDOM 102 mg/dL (70-110); MAGNESIUM 1.8 mg/dL (1.7-2.2); POTASSIUM 4.4 mmol/L (3.6-5.0); SODIUM 131 mmol/L (132-148); TOTAL PROTEIN 7.7 g/dL (5.8-8.3)
[2017-10-29 12:01] LABS: TROPONIN I < 0.01 ng/mL
[2017-10-29 12:59] LABS: URINE BILIRUBIN NEGATIVE (NEGATIVE); URINE BLOOD NEGATIVE (NEGATIVE); URINE GLUCOSE (UA) NEGATIVE (NEGATIVE); URINE KETONE TRACE mg/dL (NEGATIVE); URINE LEUKOCYTE ESTERASE NEGATIVE Leu/uL (NEGATIVE); URINE PROTEIN NEGATIVE mg/dL (<30 mg/dL); URINE UROBILINOGEN 0.2 E.U./dL (<1 E.U./dL)
[2017-10-29 13:04] LABS: URINE APPEARANCE CLEAR (CLEAR); URINE COLOR YELLOW (YELLOW)
[2017-10-29 13:10] VITALS: BP 128/72; PULSE 78
--- NOTE | 2017-10-29 21:45 | CARD ---
APPROVED REPORT EKG Measurement Heart [id number] <Conclusion> Normal sinus rhythm Normal ECG
--- NOTE | 2017-11-02 09:25 | RAD ---
HISTORY: Chest pain COMPARISON: 05/24/2017 FINDINGS: LUNGS: No active pulmonary disease. PLEURA: No significant pleural effusion identified, no pneumothorax apparent. CARDIOVASCULAR: Normal. OSSEOUS STRUCTURES: No significant abnormalities. VISUALIZED UPPER ABDOMEN: Normal. OTHER FINDINGS: None. IMPRESSION: No active disease.
== END 2017-10-29 13:11 | disposition home or self-care (01) ==
LOC: ED 10:04
DX: R07.9 Chest pain, unspecified (principal); I10 Essential (primary) hypertension; E78.5 Hyperlipidemia, unspecified

== ENCOUNTER 2017-11-28 20:13 | Inpatient (IN) | payer MEDICARE, OTHER ==
[2017-11-28] MEDS: Sodium Chloride 0.9% 1,000 ML IV SCH (20:45)
--- NOTE | 2017-11-28 20:57 | ED PDOC ---
Arrival/HPI - General Chief Complaint: Altered Mental Status Time Seen by Provider: 11/28/17 20:17 Historian: Patient, EMS - History of Present Illness Narrative History of Present Illness (Text): 11/28/17 20:54 A 82 year old female, whose past medical history includes hypertension, presents to the emergency department brought in by EMS for AMS. The patient states she was seeing people walking around in her home. The patient denies any complaints of shortness of breath, chest pain, head trauma. She notes that she is not sure on how she arrived to the emergency department. The patient admits to living alone and has a chronic headache. Time/Duration: Prior to Arrival Symptom Onset: Sudden Symptom Course: Unchanged Activities at Onset: Light Context: Home Past Medical History - Provider Review Nursing Documentation Reviewed: Yes - Infectious Disease Hx of Infectious Diseases: None - Tetanus Immunization Tetanus Immunization: Unknown - Cardiac Hx Cardiac Disorders: Yes Hx Hypertension: Yes - Pulmonary Hx Respiratory Disorders: No - Neurological Hx Neurological Disorder: No - HEENT Hx HEENT Disorder: No - Renal Hx Renal Disorder: No - Endocrine/Metabolic Hx Endocrine Disorders: No - Hematological/Oncological Hx Blood Disorders: No - Integumentary Hx Dermatological Disorder: No - Musculoskeletal/Rheumatological Hx Musculoskeletal Disorders: Yes Hx Falls: Yes Hx Spinal Stenosis: Yes - Gastrointestinal Hx Gastrointestinal Disorders: No - Genitourinary/Gynecological Hx Genitourinary Disorders: No - Psychiatric Hx Psychophysiologic Disorder: No Hx Substance Use: No - Surgical History Other/Comment: benign right breast cyst "many yrs ago" - Anesthesia Hx Anesthesia: Yes Hx Anesthesia Reactions: No Hx Malignant Hyperthermia: No - Suicidal Assessment Feels Threatened In Home Enviroment: No Family/Social History - Physician Review Nursing Documentation Reviewed: Yes Family/Social History: No Known Family HX Smoking Status: Never Smoked Hx Alcohol Use: No Hx Substance Use: No Hx Substance Use Treatment: No Allergies/Home Meds Allergies/Adverse Reactions: Allergies No Known Allergies Allergy (Verified 11/28/17 20:26) Home Medications: Home Meds Medication Instructions Recorded Confirmed Aspirin [Aspirin Chewable] 81 mg PO DAILY 01/09/17 10/29/17 Nebivolol [Bystolic] 10 mg PO HS 01/09/17 10/29/17 Pravastatin Sodium [Pravachol] 40 mg PO HS 01/09/17 10/29/17 Alprazolam [Xanax Xr] 1 mg PO PRN 07/12/17 10/29/17 Calcium Carbonate/Vitamin D 1 tab PO DAILY 07/12/17 10/29/17 [Oyster Shell Calcium/Vitamin D 250 MG-125 Iu] Lisinopril [Zestril] 10 mg PO DAILY 07/12/17 10/29/17 Review of Systems - Physician Review All systems were reviewed & negative as marked: Yes - Review of Systems Systems not reviewed;Unavailable: Altered Mental Status Respiratory: absent: SOB Cardiovascular: absent: Chest Pain Neurological: Headache Physical Exam Vital Signs Reviewed: Yes Vital Signs Temp Pulse Resp BP Pulse Ox 11/28/17 22:13 78 17 100/57 L 94 L 11/28/17 20:33 98.9 F 81 18 92/55 L 93 L Temperature: Afebrile Blood Pressure: Hypotensive Pulse: Regular Respiratory Rate: Apneic Appearance: Positive for: Well-Appearing, Non-Toxic, Comfortable Pain Distress: None Mental Status: Positive for: Alert and Oriented X 3 - Systems Exam Head: Present: Atraumatic, Normocephalic Pupils: Present: PERRL Extroacular Muscles: Present: EOMI Conjunctiva: Present: Normal Mouth: Present: Moist Mucous Membranes Neck: Present: Normal Range of Motion Respiratory/Chest: Present: Clear to Auscultation, Good Air Exchange. No: Respiratory Distress, Accessory Muscle Use Cardiovascular: Present: Regular Rate and Rhythm, Normal S1, S2. No: Murmurs Abdomen: Present: Normal Bowel Sounds. No: Tenderness, Distention, Peritoneal Signs Back: Present: Normal Inspection Upper Extremity: Present: Normal Inspection. No: Cyanosis, Edema Lower Extremity: Present: Normal Inspection. No: Edema Neurological: Present: GCS=15, CN II-XII Intact, Speech Normal Skin: Present: Warm, Dry, Normal Color. No: Rashes Psychiatric: Present: Alert (alert and oriented to person and place, but is confused about time ), Normal Insight, Normal Concentration Medical Decision Making ED Course and Treatment: 11/28/17 20:56 Impression: A 82 year old female brought in for AMS. Plan: -- Head CT -- EKG -- Chest X-ray -- Labs -- IV Fluids -- Reassess and disposition Progress Notes: Reviewed EKG, NSR at [address]-segment elevations or depressions, no T-wave inversions, normal intervals. 11/28/17 23:23 Chest X-ray reviewed, no acute processes. 11/28/17 23:[address] Lott, covering for Dr. Dupree, who is aware and agrees with plan. Pt will go to Telemetry observation for AMS and dehydration under Dr. Dupree's service. 11/29/17 00:15 CT Head shows: Brain: Moderate atrophy. No intracranial hemorrhage. No mass. Few scattered foci of decreased attenuation within periventricular/subcortical white matter. No definite edema. Ventricles: No hydrocephalus. Bones/joints: No acute fracture. Soft tissues: Unremarkable. Vasculature: Atherosclerotic disease of intracranial arteries. Sinuses: No acute sinusitis. Mastoid air cells: No mastoid effusion. Orbits: Unremarkable as visualized. IMPRESSION: 1. Nonspecific white matter changes. Acute infarction may be CT occult within first 24 hours. If a focal deficit persists, consider followup CT or MRI for further evaluation. 2. Incidental/non-acute findings are described above. - Lab Interpretations Lab Results: 11/28/17 20:50 11/28/17 20:50 Lab Results 11/28/17 20:50: WBC 14.4 H D, RBC 3.56, Hgb 10.8 L, Hct 32.3 L, MCV 90.7, MCH 30.3, MCHC 33.4, RDW 13.1, Plt Count 319, MPV 11.5 H 11/28/17 20:50: Sodium 133, Potassium 5.0, Chloride 100, Carbon Dioxide 19 L, Anion Gap 19, BUN 55 H, Creatinine 1.9 H, Est GFR ( Amer) 30, Est GFR ( Non-Af Amer) 25, Random Glucose 95, Calcium 9.9, Total Bilirubin 0.6, AST 38 H D , ALT 29, Alkaline Phosphatase 64, Lactate Dehydrogenase 862 H, Total Creatine Kinase 258 H, CK-MB (CK-2) 4.4 H, CK-MB (CK-2) % Cancelled, Troponin I < 0.01, Total Protein 8.3, Albumin 4.5, Globulin 3.7, Albumin/Globulin Ratio 1.2 11/28/17 20:50: PT 11.3, INR 1.04, APTT 27.8 I have reviewed the lab results: Yes - RAD Interpretation Radiology Orders: 11/28/17 20:42 HEAD W/O CONTRAST [CT] Stat CHEST PORTABLE [RAD] Stat Still Runner: ED Physician, Radiologist - EKG Interpretation Interpreted by ED Physician: Yes Type: 12 lead EKG - Medication Orders Current Medication Orders: Aspirin (Aspirin Chewable) 81 mg PO DAILY G[facility] Sodium Chloride (Sodium Chloride 0.9%) 1,000 mls @ 100 mls/hr IV .Q10H G[facility]MAN Last Admin: 11/28/17 20:45 Dose: 100 mls/hr eMAR Start Stop Document 11/28/17 20:45 SF (Rec: 11/28/17 21:52 SF [id number] Intravenous Solution Start Date 11/28/17 Start Time 20:45 Sodium Chloride (Sodium Chloride 0.9%) 500 mls @ 500 mls/hr IV .Q1H STA Stop: 11/29/17 00:22 Lisinopril (Zestril) 10 mg PO DAILY [facility] Non-Formulary Medication (Alprazolam [Xanax Xr]) 1 mg PO PRN [facility] Non-Formulary Medication (Nebivolol [Bystolic]) 10 mg PO HS [facility]MAN Non-Formulary Medication (Pravastatin Sodium [Pravachol]) 40 mg PO HS GERMAN - Scribe Statement The provider has reviewed the documentation as recorded by the Ted Saldivar Provider Scribe Attestation: All medical record entries made by the Scribe were at my direction and personally dictated by me. I have reviewed the chart and agree that the record accurately reflects my personal performance of the history, physical exam, medical decision making, and the department course for this patient. I have also personally directed, reviewed, and agree with the discharge instructions and disposition. Disposition/Present on Arrival - Present on Arrival Any Indicators Present on Arrival: No History of DVT/PE: No History of Uncontrolled Diabetes: No Urinary Catheter: No History of Decub. Ulcer: No History Surgical Site Infection Following: None - Disposition Have Diagnosis and Disposition been Completed?: Yes Diagnosis: Dehydration, Altered mental status Disposition: HOSPITALIZED Disposition Time: 23:50 Patient Plan: Observation Patient Problems: Current Active Problems Problem Status Onset Altered mental status Acute Dehydration Acute Condition: STABLE Referrals: Joaquin Dupree MD [Primary Care Provider] - Follow up with primary Forms: Home Team Therapy ([place])
[2017-11-28 21:41] LABS: HEMOGLOBIN 10.8 g/dL (12.0-16.0); MEAN CELL VOLUME 90.7 fl (80.0-105.0); MEAN CORPUSCULAR HEMOGLOBIN 30.3 pg (25.0-35.0); MEAN CORPUSCULAR HGB CONC 33.4 g/dl (31.0-37.0); MEAN PLATELET VOLUME 11.5 fl (7.0-11.0); RBC 3.56 10^6/uL (3.5-6.1); RED CELL DISTRIBUTION WIDTH 13.1 % (11.5-14.5); WHITE BLOOD COUNT 14.4 10^3/ul (4.5-11.0)
[2017-11-28 21:55] LABS: TROPONIN I < 0.01 ng/mL
[2017-11-28 21:56] LABS: INR 1.04 (0.93-1.08); PROTHROMBIN TIME 11.3 SECONDS (9.4-12.5)
[2017-11-28 21:57] LABS: PARTIAL THROMBOPLASTIN TIME 27.8 Seconds (25.1-36.5)
[2017-11-28 22:02] LABS: ALB/GLOB RATIO 1.2 (1.1-1.8); ALBUMIN 4.5 g/dL (3.0-4.8); ALT/SGPT 29 U/L (7-56); AST/SGOT 38 U/L (14-36); BLOOD UREA NITROGEN 55 mg/dL (7-21); CALCIUM 9.9 mg/dL (8.4-10.5); GFR AFRICAN-AMERICAN 30; GFR NON-AFRICAN AMERICAN 25
[2017-11-28 22:25] LABS: CK-MB 4.4 ng/mL (0.0-3.6)
[2017-11-28] MEDS ORDERED: Sodium Chloride 0.9% 500 ML IV STA (23:23)
--- NOTE | 2017-11-29 00:14 | CT ---
EXAM: CT Head Without Intravenous Contrast CLINICAL HISTORY: 82 years old, female; Signs and symptoms; Altered mental status/memory loss; Additional info: AMS TECHNIQUE: Axial computed tomography images of the head/brain without intravenous contrast. All CT scans at this facility use one or more dose reduction techniques, viz.: automated exposure control; ma/kV adjustment per patient size (including targeted exams where dose is matched to indication; i.e. head); or iterative reconstruction technique. Coronal and sagittal reformatted images were created and reviewed. COMPARISON: CT - HEAD W/O CONTRAST 2017-07-12 11:23 FINDINGS: Brain: Moderate atrophy. No intracranial hemorrhage. No mass. Few scattered foci of decreased attenuation within periventricular/subcortical white matter. No definite edema. Ventricles: No hydrocephalus. Bones/joints: No acute fracture. Soft tissues: Unremarkable. Vasculature: Atherosclerotic disease of intracranial arteries. Sinuses: No acute sinusitis. Mastoid air cells: No mastoid effusion. Orbits: Unremarkable as visualized. IMPRESSION: 1. Nonspecific white matter changes. Acute infarction may be CT occult within first 24 hours. If a focal deficit persists, consider followup CT or MRI for further evaluation. 2. Incidental/non-acute findings are described above.
[2017-11-29] MEDS ORDERED: ALPRAZOLAM 1 MG PO SCH (00:15)
[2017-11-29 03:00] VITALS: BMI 23.0
--- NOTE | 2017-11-29 08:46 | RAD ---
HISTORY: Fever COMPARISON: 10/29/2017. FINDINGS: LUNGS: The lungs are well inflated and clear. PLEURA: There is left pleural thickening versus small effusion, no pneumothorax apparent. CARDIOVASCULAR: Normal. OSSEOUS STRUCTURES: No significant abnormalities. VISUALIZED UPPER ABDOMEN: Normal. OTHER FINDINGS: None. IMPRESSION: Left pleural thickening versus small effusion. Clear right lung.
--- NOTE | 2017-11-29 09:49 | CARD ---
APPROVED REPORT EKG Measurement Heart [id number] <Conclusion> Normal sinus rhythm Normal ECG
--- NOTE | 2017-11-29 16:29 | CON ---
DATE: 11/29/2017 NEUROLOGY CONSULT CHIEF COMPLAINT: Altered mental status and hallucinations. HISTORY OF PRESENT ILLNESS: This is an 82-year-old woman with history of hypertension and anxiety who apparently was seeing people walking around her home and therefore, was brought by her family members. She notes that she is not sure how and why she arrived in the hospital. She lives alone. PAST MEDICAL HISTORY: History of spinal stenosis, hypertension, and anxiety. REVIEW OF SYSTEMS: A 14-point review of systems is negative as mentioned in HPI. MEDICATIONS: Reviewed by nurses' reconciliation sheet. She is on at home are aspirin, Bystolic, Pravachol, Xanax, and Zestril. ALLERGIES: NO KNOWN DRUG ALLERGIES. SOCIAL HISTORY: No illicit drug use, smoking, or EtOH abuse. PHYSICAL EXAMINATION: VITAL SIGNS: Temperature is 98.5, pulse rate 68, blood pressure 137/85, respiratory rate 21, oxygen saturation is 96% in room air. GENERAL: The patient is sitting up in bed, in no acute distress. HEENT: Head is atraumatic and normocephalic. PERRLA. Extraocular muscles are intact. NECK: Supple. No JVD. No adenopathy noted. LUNGS: Clear to auscultation. No adventitious sounds. HEART: S1 and S2. Normal rate and rhythm. No murmurs, rubs, or gallops. ABDOMEN: Soft, nontender, and nondistended. Bowel sounds are present. EXTREMITIES: No clubbing. No cyanosis. Peripheral pulses are 2+ felt bilaterally. NEUROLOGIC: The patient is alert, oriented to person and place, not much to month or year. Recall after 5 minutes is 0/3. Poor attention and slow thought process. Cranial nerves II through XII intact. Motor: Slight increased tone throughout. Moves all extremities equally. Toes are downgoing bilaterally. Sensory: Light touch, pinprick, proprioception, vibration intact. DTRs are 1+ throughout. Coordination: Htbnub-ol-[id number] intact. Gait is deferred for now. LABORATORY DATA: Sodium is 133, potassium 5, chloride 100, carbon dioxide 19, BUN of 55, creatinine 1.9, and random glucose of 97. ASSESSMENT AND PLAN: This is an 82-year-old woman with history of hypertension, spinal stenosis, who lives alone, who is hallucinating and seeing people wandering around her house, who was brought here for further evaluation. Her CAT scan of the head showed no acute intracranial abnormality. At this time, she does have features of drlsncmf-oy-oybtoa cognitive impairment with occasional hallucinations. She has no parkinsonism at all, unlikely Lewy body dementia. She is dehydrated and has low systolic and diastolic blood pressures, which can also cause headache as well. RECOMMENDATIONS: At this time, we recommend: 1. Adequate hydration. 2. Delirium precautions. 3. Avoid nighttime interruptions. 4. Xanax p.r.n. for anxiety. 5. Seroquel 25 mg p.o. b.i.d. for hallucinations. 6. Continue her on aspirin and statin for stroke prevention. 7. PT and OT assessment. No further neurological workup needed at this time. Thank you for this consult. Christos Coffman MD
[2017-11-29 19:00] LABS: URINE BILIRUBIN NEGATIVE (NEGATIVE); URINE BLOOD NEGATIVE (NEGATIVE); URINE GLUCOSE (UA) NEGATIVE (NEGATIVE); URINE LEUKOCYTE ESTERASE TRACE Leu/uL (NEGATIVE); URINE NITRATE POSITIVE (NEGATIVE); URINE PROTEIN NEGATIVE mg/dL (<30 mg/dL); URINE UROBILINOGEN 0.2 E.U./dL (<1 E.U./dL)
[2017-11-29 19:02] LABS: URINE APPEARANCE CLEAR (CLEAR); URINE COLOR YELLOW (YELLOW)
[2017-11-29 19:18] LABS: URINE BACTERIA MANY (NEG); URINE RBC 0 - 2 /hpf (0-2)
--- NOTE | 2017-11-29 23:36 | CON ---
DATE: 11/29/2017 The patient admitted by Dr. Joaquin Dupree REFERRING PHYSICIAN: Dr. Joaquin Dupree REASON FOR CONSULTATION: Evaluation of the patient unknown to me who presents with an elevated BUN and creatinine in the setting of an altered mental status, dehydration and elevated white blood cell count. HISTORY OF PRESENT ILLNESS: The patient is an 82-year-old white female with a history of hypertension, history of anemia, history of mild hyperlipidemia who states she was doing well until several days ago when she states her appetite disappeared. She apparently became mildly dehydrated. She is complaining of some mild discomfort with urination. No upper respiratory tract symptoms. The patient was brought to the hospital for evaluation of her weakened state and altered mental status. She was noted to have a BUN of 55 with a creatinine of 1.9. Her baseline BUN is 20 with a creatinine of 0.7. Her CO2 level was 19. The patient was noted to have a white blood cell count of 14.4. Urines are pending. She is complaining of some mild discomfort upon urination. She has no back pain. She has no chills or fevers. She has had no documented fever in the hospital. We are asked to evaluate the patient for elevated BUN and creatinine and mild metabolic acidosis. PAST MEDICAL HISTORY: Significant for hypertension, mild anemia and hyperlipidemia. MEDICATIONS AT HOME: Include that of Pravachol, Bystolic, Zestril, calcium and vitamin D, aspirin, and Xanax p.r.n. ALLERGIES: NO KNOWN ALLERGIES TO MEDICATIONS. CURRENT MEDICATIONS: In the hospital include that of aspirin, Lipitor, Bystolic, Seroquel, normal saline 150 mL an hour and lisinopril 10 mg a day. SOCIAL HISTORY: No history of cigarette smoking. No history of alcohol use. FAMILY HISTORY: Father of complications of heart disease. Mother of stroke. REVIEW OF SYSTEMS: GENERAL: The patient states appetite and weight have been good until 2 days prior to admission to the hospital. ENT: Denies any hearing or visual problems. PULMONARY: No shortness of breath. No history of asthma, bronchitis, emphysema, COPD or pneumonia. CARDIAC: No history of ASHD. No chest pain. GI: No nausea. No vomiting. No diarrhea. No constipation. No abdominal pain. : No history of UTIs. No history of kidney disease. MEDICAL GENETICS DIRECTOR: Postmenopausal. ENDOCRINE: No history of diabetes. MUSCULOSKELETAL: No complaints. NEUROLOGIC: No history of CVA, TIA, seizures or syncope. HEME/ONC: History of anemia as noted above. No history of malignancy. PSYCHIATRIC HISTORY: Negative. PHYSICAL EXAMINATION: GENERAL: The patient is currently seen on 3-R sitting at the side of bed. She appears to be in no acute distress. IV fluids are infusing. VITAL SIGNS: Blood pressure 137/85, temperature 98.5, respiratory rate 21 with a pulse of 68. Oxygen saturation is 96%. HEENT: Exam shows her to be normocephalic, atraumatic. Conjunctivae are pink. Sclerae are nonicteric. Pupils equal, reactive to light and accommodation. Extraocular muscles are intact. Posterior pharynx is normal. NECK: Supple. No neck vein distention. No thyromegaly. No lymphadenopathy. No bruits. CHEST: Clear to auscultation and percussion. No rales, no rhonchi or wheezing. CARDIOVASCULAR: Shows a regular rate and rhythm without murmurs, rubs or gallops. ABDOMEN: Soft. Bowel sounds normal. No rebound or guarding. No masses. BACK: No CVAT. No spinal tenderness. EXTREMITIES: Show no cyanosis, no clubbing or edema. Distal lower extremity pulses are 2+ bilaterally. NEUROLOGIC: Shows her be alert, oriented x3 with no gross focal motor or sensory deficits. LABORATORY DATA AND IMAGING STUDIES: Admitting EKG showed normal sinus rhythm. Admitting head CT showed no acute findings. Admitting chest x-ray showed left pleural thickening. Labs, CBC, white blood cell count 14.4, hemoglobin 10.8, platelet count is 319,000. Coags normal. Chemistries: Normal sodium 133, potassium 5.0, chloride 100 with a CO2 of 19, anion gap is 19. BUN is 55 with a baseline BUN of 20. Creatinine is 1.9 with a baseline creatinine of 0.7. Liver enzymes are normal. LDH is mildly elevated 862. Total CPK mildly elevated at 458. Troponins are negative. Albumin is 4.5. Urines are pending. ASSESSMENT: 1. Altered mental status, appears to have resolved. The patient appears to be back to baseline. 2. Elevated BUN and creatinine mostly in prerenal fashion. This is likely secondary to volume depletion by history. The patient states oral fluid intake significantly diminished over the last 2 days. The patient is currently receiving IV fluid hydration and expect her BUN and creatinine to be back to baseline levels by tomorrow at which point in time IV fluids may be discontinued if we are certain that the patient's p.o. intake will suffice. 3. Elevated white blood cell count, afebrile. Ruling out urinary tract infection. No evidence for any upper respiratory tract infection. No evidence for pneumonia. 4. Mild anemia. Will check the patient's iron levels, ferritin, B12 and folate. With hydration, her hemoglobin is likely to drop further. We will check her stools for blood. 5. Elevated LDH noted, uncertain of the significance of this. 6. Hyperlipidemia. The patient may continue statin. Mild elevation of CPK which is acceptable. PLAN: 1. Until BUN and creatinine falls to normal, I will hold the patient's CHARLI inhibitor. We could make this decision tomorrow if her BUN and creatinine are elevated. In all likelihood, it might be back to normal with hydration. 2. Check urinalysis and urine C&S. 3. Anemia workup sent. 4. Follow accurate Is and Os and daily labs. 5. Discussed with staff on 3-R. Thank you for letting me partake and share in the care of your patient. Amador Cheema MD
--- NOTE | 2017-11-30 00:35 | HP ---
HISTORY OF PRESENT ILLNESS: This is an 82-year-old white female with history of peripheral vascular disease, degenerative arthritis, hypertension, and hypercholesteremia. The patient was at home and was found by the family to be having visual hallucinations and some dysarthria. The patient was transferred to [facility] where she continues to have visual hallucinations. She had recently had seen her mirror painter and had her medication changed to unknown medication. The patient has had a similar episode from reaction to medication in the past. The patient had a CT of the head in the ER, which showed just microvascular disease, but no acute findings. The patient did have an elevated white blood cell count of 14,400 with left sift, hemoglobin of 10.8 and also an elevated BUN and creatinine of 55 and 1.9 and elevated total creatinine and CPK. The patient denies any fall or recent trauma. PHYSICAL EXAMINATION: GENERAL: A well-developed, well-nourished white female, in no apparent distress. The patient is oriented to person, time, and place. However, she is having visual hallucinations through the window of the hospital room. CHEST: Clear to auscultation and percussion. HEART: Regular sinus rhythm. No S3 or murmurs. Carotids without bruits. ABDOMEN: Benign. EXTREMITIES: Without cyanosis, clubbing, or edema.. NEUROLOGIC: The patient is grossly intact. The patient does walk with a walker. Speech is fluent. There are no focal lateralizing defect on her neurologic examination. Cranial nerves II to XII are intact. IMPRESSION: Acute confusional state, leukocytosis, anemia, renal insufficiency, mild rhabdomyolysis in an 82-year-old white female. Joaquin Dupree MD
[2017-11-30] MEDS: Sodium Chloride 0.9% 1,000 ML IV SCH ×2 (04:00→20:54)
[2017-11-30 06:30] LABS: HEMOGLOBIN 9.9 g/dL (12.0-16.0); MEAN CELL VOLUME 91.6 fl (80.0-105.0); MEAN CORPUSCULAR HEMOGLOBIN 29.7 pg (25.0-35.0); MEAN CORPUSCULAR HGB CONC 32.5 g/dl (31.0-37.0); RBC 3.33 10^6/uL (3.5-6.1); RED CELL DISTRIBUTION WIDTH 13.4 % (11.5-14.5); WHITE BLOOD COUNT 7.9 10^3/ul (4.5-11.0)
[2017-11-30 06:53] LABS: IRON 49 ug/dL (45-180)
[2017-11-30 07:00] LABS: ALB/GLOB RATIO 1.2 (1.1-1.8); ALBUMIN 3.9 g/dL (3.0-4.8); ALT/SGPT 25 U/L (7-56); AST/SGOT 36 U/L (14-36); BLOOD UREA NITROGEN 26 mg/dL (7-21); CALCIUM 9.3 mg/dL (8.4-10.5); GFR AFRICAN-AMERICAN > 60; GFR NON-AFRICAN AMERICAN > 60
[2017-11-30 07:02] LABS: % IRON SATURATION 19 % (20-55); TOTAL IRON BINDING CAPACITY 256 ug/dL (265-497)
[2017-11-30] MEDS ORDERED: Gadodiamide 287 MG/ML VIAL (15ML) IV ONE (09:13)
--- NOTE | 2017-11-30 09:41 | PN ---
DATE: SUBJECTIVE: This 82-year-old white female admitted to the hospital with some visual hallucinations, change in mental status, and confusion. The patient was found to have a urinary tract infection, will be started on Rocephin today. White count was elevated at 14,000, repeat back is normal. She also has an elevated CPK isoenzymes which have decreased down to 207 from 259. The patient recently was started on new medication by pain management doctor, this was held. The patient is awaiting Psychiatric consult from Dr. Hernandez. The patient did have a CT of the brain and MRI of the brain. The MRI is still pending result. PHYSICAL EXAMINATION: VITAL SIGNS: Stable. LABORATORY DATA: Hemoglobin is down to 9.9. PLAN: The plan is to start Rocephin for urinary tract infection, Psychiatric consult, MRI and follow up on workup of anemia. Joaquin Dupree MD
--- NOTE | 2017-11-30 10:03 | MRI ---
PROCEDURE: MRI BRAIN WITH AND WITHOUT CONTRAST HISTORY: confusion COMPARISON: First unenhanced brain MRI 06/25/2014 as well as unenhanced head CT 11/28/2017. TECHNIQUE: Multiplanar, multisequence MR images of the brain were obtained with and without intravenous contrast enhancement. FINDINGS: HEMORRHAGE: None DWI: No evidence of an acute or early subacute infarction. BRAIN PARENCHYMA: Good corticomedullary differentiation is seen. Stable, diffuse expansion of the ventriculosulcal and cisternal spaces is appreciated with infrequent white matter long TR hyper intensity compatible with diffuse cerebral atrophy and chronic microangiopathy. No suspicious extra-axial fluid collection is identified and the midline brain anatomy appears grossly nonfocal as imaged. There is no mass effect throughout. ENHANCEMENT: No abnormal intracranial enhancement. VENTRICLES: Unremarkable. No hydrocephalus. CRANIUM: Unremarkable. ORBITS: Grossly unremarkable. PARANASAL SINUSES/MASTOIDS: Clear VASCULAR SYSTEM: Skull base flow voids intact. OTHER FINDINGS: Trace bilateral mastoid effusions are identified bilaterally. IMPRESSION: No definite acute intracranial findings or suspicious contrast enhancement. Stable age related neuro degenerative changes appear age-appropriate once again. Trace bilateral mastoid effusions are identified bilaterally.
[2017-11-30] MEDS: cefTRIAXone 1 gm 1 GM/100 ML BAG IVPB SCH (10:27)
[2017-11-30 13:00] LABS: FOLATE 13.2 ng/mL
[2017-11-30] MEDS: Iron Complex Polysacch 150mg Cap PO SCH (13:40)
--- NOTE | 2017-11-30 14:40 | PN ---
DATE: SUBJECTIVE: The patient is currently seen sitting up in a chair. She appears to be in no acute distress. Her BUN and creatinine have returned back to baseline levels with adequate IV fluid hydration. She is being treated for her urinary tract infection. She appears to be back to baseline levels. MEDICATIONS: Medication list reviewed. The patient is on aspirin, Lipitor, Bystolic, Rocephin, Seroquel, and normal saline 100 mL an hour. OBJECTIVE: INTAKE/OUTPUT: Intake 1560, output not charted. VITAL SIGNS: Blood pressure 156/64, heart rate 86, temperature 97.8, respiratory rate 20 with pulse oximetry of 95%. HEENT: Shows her to be normocephalic, atraumatic. Conjunctivae are pink. Sclerae are nonicteric. NECK: Supple. No neck vein distention. CHEST: Clear to auscultation and percussion. No rales, rhonchi, or wheezing. CARDIOVASCULAR: Regular rate and rhythm without murmurs, rubs, or gallops. ABDOMEN: Soft. Bowel sounds normal. No rebound or guarding. No masses. EXTREMITIES: No cyanosis, clubbing, or edema. Distal lower extremity pulses are intact to 2+ bilaterally. NEUROLOGIC: Shows her be alert, oriented, and apparently back to baseline. LABORATORY DATA AND IMAGING STUDIES: CBC, white blood cell count down to 7.9 from 14.4, hemoglobin 9.9 down from 10.8, and platelet count is normal. Chemistry showed normal electrolytes. BUN is down from 55 to 26. Her baseline is below 20. Creatinine is down from 1.9 to 0.7, 0.7 is at her baseline range. Urine showed 1 to 3 white blood cells, 0 to 2 red blood cells, many bacteria. Her urine C&S showed a Gram-negative denita. ASSESSMENT: 1. Altered mental status appears to have resolved. The patient is back to baseline. 2. Status post acute elevation of her BUN and creatinine likely secondary to volume depletion and perhaps secondary to a developing a urinary tract infection. BUN is close to normal. Creatinine is back to baseline. We did decrease her IV fluid hydration. 3. Status post leukocytosis. This has resolved. 4. Mild anemia. Hemoglobin is down to 9.9 with IV fluid hydration. Iron saturations are 19%. Ferritin is 138. B12 level was 299 with a folate level of 13.2. The patient will be started on oral iron supplements. 5. Mild hyperlipidemia. The patient may continue statin therapy. Mild elevation of CPK is to be expected with use of statins. PLAN 1. We could restart her CHARLI inhibitor lisinopril tomorrow. 2. Agree with antibiotic therapy for her likely urinary tract infection. 3. Start oral iron therapy for her mild anemia. 4. We will decrease her IV fluid hydration, as her BUN and creatinine are approaching baseline range. Amador Cheema MD
--- NOTE | 2017-11-30 22:45 | CP.PCM.PN ---
Subjective - Date & Time of Evaluation Date of Evaluation: 11/30/17 Time of Evaluation: 22:42 - Subjective Subjective: Patient was seen because she was agitated. She was trying to pull the IV pole towards her. She was saying that why she is being watched in her own house. She feels that she is in her own house. Does not answer when she was asked if she has any symptoms. Pertinent medical record was reviewed. This 82 year old white woman was admitted with altered mental status, dehydration, uremia,mild rhabdomyolysis. Has PMH of HTN, anemia, HLD, DJD, PVD, back pain, gastroenteritis. Objective - Vital Signs/Intake and Output Vital Signs (last 24 hours): Temp Pulse Resp BP Pulse Ox 97.6 F 66 20 137/60 96 11/30/17 16:00 11/30/17 16:00 11/30/17 16:00 11/30/17 16:00 11/30/17 16:00 Intake and Output: 11/30/17 12/01/17 18:59 06:59 Intake Total 480 120 Output Total 1 Balance 480 119 - Medications Medications: Current Medications Aspirin (Aspirin Chewable) 81 mg PO DAILY [facility] Last Admin: 11/30/17 10:27 Dose: 81 mg Atorvastatin Calcium (Lipitor) 10 mg PO [facility] Last Admin: 11/30/17 21:04 Dose: 10 mg Ceftriaxone Sodium (Rocephin 1 Gram Ivpb) 1 gm in 100 mls @ 100 mls/hr IVPB DAILY [facility] PRN Reason: Protocol Last Admin: 11/30/17 10:27 Dose: 100 mls/hr Sodium Chloride (Sodium Chloride 0.9%) 1,000 mls @ 60 mls/hr IV .[id number] [facility] Last Admin: 11/30/17 20:54 Dose: 60 mls/hr Lisinopril (Zestril) 10 mg PO DAILY [facility] Last Admin: 11/30/17 10:27 Dose: 10 mg Lorazepam (Ativan) 0.5 mg PO TID PRN; Protocol PRN Reason: Agitation Nebivolol [Bystolic] (10 Mg) 10 mg PO HS [facility] Last Admin: 11/30/17 21:08 Dose: Not Given Polysaccharide Iron Complex (Ferrex-150) 150 mg PO DAILY [facility] Last Admin: 01/03/18 13:40 Dose: 150 mg Quetiapine Fumarate (Seroquel) 25 mg PO BID [facility] PRN Reason: Protocol Last Admin: 11/30/17 17:03 Dose: 25 mg - Labs Labs: 11/30/17 06:10 11/30/17 06:10 PT 11.3 SECONDS (9.4-12.5) 11/28/17 20:50 INR 1.04 (0.93-1.08) 11/28/17 20:50 APTT 27.8 Seconds (25.1-36.5) 11/28/17 20:50 Micro Results 11/29/17 18:33 Urine Urine Culture - Preliminary Gram Negative Timbo Most Recent Lab Values WBC 7.9 10^3/ul (4.5-11.0) D 11/30/17 06:10 RBC 3.33 10^6/uL (3.5-6.1) L 11/30/17 06:10 Hgb 9.9 g/dL (12.0-16.0) L 11/30/17 06:10 Hct 30.5 % (36.0-48.0) L 11/30/17 06:10 MCV 91.6 fl (80.0-105.0) 11/30/17 06:10 MCH 29.7 pg (25.0-35.0) 11/30/17 06:10 MCHC 32.5 g/dl (31.0-37.0) 11/30/17 06:10 RDW 13.4 % (11.5-14.5) 11/30/17 06:10 Plt Count 287 10^3/uL (120.0-450.0) 11/30/17 06:10 MPV 11.0 fl (7.0-11.0) 11/30/17 06:10 PT 11.3 SECONDS (9.4-12.5) 11/28/17 20:50 INR 1.04 (0.93-1.08) 11/28/17 20:50 APTT 27.8 Seconds (25.1-36.5) 11/28/17 20:50 Sodium 139 mmol/L (132-148) 11/30/17 06:10 Potassium 4.2 mmol/L (3.6-5.0) 11/30/17 06:10 Chloride 110 mmol/L (98-107) H 11/30/17 06:10 Carbon Dioxide 19 mmol/L (21-33) L 11/30/17 06:10 Anion Gap 14 (10-20) 11/30/17 06:10 BUN 26 mg/dL (7-21) H 11/30/17 06:10 Creatinine 0.7 mg/dl (0.7-1.2) 11/30/17 06:10 Est GFR ( Amer) > 60 11/30/17 06:10 Est GFR (Non-Af Amer) > 60 11/30/17 06:10 POC Glucose (mg/dL) 91 mg/dL (65-110) 11/30/17 07:12 Random Glucose 88 mg/dL (70-110) 11/30/17 06:10 Calcium 9.3 mg/dL (8.4-10.5) 11/30/17 06:10 Phosphorus 2.3 mg/dL (2.5-4.5) L 11/30/17 06:10 Magnesium 2.0 mg/dL (1.7-2.2) 11/30/17 06:10 Iron 49 ug/dL (45-180) 11/30/17 06:10 TIBC 256 ug/dL (265-497) L 11/30/17 06:10 % Saturation 19 % (20-55) L 11/30/17 06:10 Ferritin 138.0 ng/mL 11/30/17 06:10 Total Bilirubin 0.5 mg/dL (0.2-1.3) 11/30/17 06:10 AST 36 U/L (14-36) 11/30/17 06:10 ALT 25 U/L (7-56) 11/30/17 06:10 Alkaline Phosphatase 64 U/L (38-126) 11/30/17 06:10 Lactate Dehydrogenase 862 U/L (333-699) H 11/28/17 20:50 Total Creatine Kinase 207 U/L (35-230) 11/30/17 06:10 CK-MB (CK-2) 4.4 ng/mL (0.0-3.6) H 11/28/17 20:50 CK-MB (CK-2) % Cancelled 11/28/17 20:50 Troponin I < 0.01 ng/mL 11/28/17 20:50 Total Protein 7.2 g/dL (5.8-8.3) 11/30/17 06:10 Albumin 3.9 g/dL (3.0-4.8) 11/30/17 06:10 Globulin 3.4 gm/dL 11/30/17 06:10 Albumin/Globulin Ratio 1.2 (1.1-1.8) 11/30/17 06:10 Vitamin B12 299 pg/mL (239-931) 11/30/17 06:10 Folate 13.2 ng/mL 11/30/17 06:10 Urine Color Yellow (YELLOW) 11/29/17 18:33 Urine Appearance Clear (CLEAR) 11/29/17 18:33 Urine pH 6.0 (4.7-8.0) 11/29/17 18:33 Ur Specific Bryan 1.020 (1.005-1.035) 11/29/17 18:33 Urine Protein Negative mg/dL (<30 mg/dL) 11/29/17 18:33 Urine Glucose (UA) Negative mg/dL (NEGATIVE) 11/29/17 18:33 Urine Ketones Trace mg/dL (NEGATIVE) H 11/29/17 18:33 Urine Blood Negative (NEGATIVE) 11/29/17 18:33 Urine Nitrate Positive (NEGATIVE) H 11/29/17 18:33 Urine Bilirubin Negative (NEGATIVE) 11/29/17 18:33 Urine Urobilinogen 0.2 E.U./dL (<1 E.U./dL) 11/29/17 18:33 Ur Leukocyte Esterase Trace Laury/uL (NEGATIVE) H 11/29/17 18:33 Urine RBC 0 - 2 /hpf (0-2) 11/29/17 18:33 Urine WBC 1 - 3 /hpf (0-6) 11/29/17 18:33 Ur Epithelial Cells 1 - 3 /hpf (0-5) 11/29/17 18:33 Urine Bacteria Many (NEG) 11/29/17 18:33 - Constitutional Appears: Well, No Acute Distress - Head Exam Head Exam: ATRAUMATIC, NORMAL INSPECTION, NORMOCEPHALIC - Eye Exam Eye Exam: Normal appearance - ENT Exam ENT Exam: Mucous Membranes Moist - Neck Exam Neck Exam: Normal Inspection - Respiratory Exam Respiratory Exam: NORMAL BREATHING PATTERN - Cardiovascular Exam Cardiovascular Exam: absent: JVD - GI/Abdominal Exam GI & Abdominal Exam: absent: Distended - Rectal Exam Rectal Exam: Deferred - Exam Additional comments: Deferred. - Extremities Exam Extremities Exam: Normal Inspection - Back Exam Back Exam: NORMAL INSPECTION - Neurological Exam Neurological Exam: Altered - Psychiatric Exam Psychiatric exam: Agitated - Skin Skin Exam: Normal Color Assessment and Plan - Assessment and Plan (Free Text) Assessment: Altered mental status. HTN. Uremia-Resolved. Dehydration. Hypophosphatemia. DJD. Anemia. HLD. Rhabdomyolysis. Plan: Ativan 1 mg IV was given earlier which did not help much. So, Geodon 20 mg IM was ordered. Continue present management.
[2017-12-01] MEDS ORDERED: Potassium Phosphate 15 MMOLE in Dextrose 5% In Water 250 ML IVPB ONE (01:01)
--- NOTE | 2017-12-01 02:39 | CP.PCM.PN ---
Subjective - Date & Time of Evaluation Date of Evaluation: 12/01/17 Time of Evaluation: 02:36 - Subjective Subjective: It was requested by nurse Ramona to enter order for 1:1 . She stated that patient has been on 1:1 watch since prior to this shift. She can not tell me who ordered this 1:1 order. Verified this with nursing superviser Lyric. Who said that she got an endorsement from previous shift nursing water plant pump operator supervisor that there is a sitter with this patient. Still, can not find out who ordered 1:1 watch. Since , patient has been watched by sitter , will continue sitter and enter the order to reflect that. Objective - Vital Signs/Intake and Output Vital Signs (last 24 hours): Temp Pulse Resp BP Pulse Ox 99.4 F 107 H 22 154/71 H 95 12/01/17 00:01 12/01/17 00:01 12/01/17 00:01 12/01/17 00:01 12/01/17 00:01 Intake and Output: 11/30/17 12/01/17 18:59 06:59 Intake Total 480 120 Output Total 1 Balance 480 119 - Medications Medications: Current Medications Aspirin (Aspirin Chewable) 81 mg PO DAILY [facility] Last Admin: 11/30/17 10:27 Dose: 81 mg Atorvastatin Calcium (Lipitor) 10 mg PO HS [facility] Last Admin: 11/30/17 21:04 Dose: 10 mg Ceftriaxone Sodium (Rocephin 1 Gram Ivpb) 1 gm in 100 mls @ 100 mls/hr IVPB DAILY [facility] PRN Reason: Protocol Last Admin: 11/30/17 10:27 Dose: 100 mls/hr Sodium Chloride (Sodium Chloride 0.9%) 1,000 mls @ 60 mls/hr IV .[id number] [facility] Last Admin: 11/30/17 20:54 Dose: 60 mls/hr Potassium Phosphate 15 mmole/ (Dextrose) 255 mls @ 42.5 mls/hr IVPB ONCE ONE Stop: 12/01/17 07:00 Last Admin: 12/01/17 01:48 Dose: 42.5 mls/hr Lisinopril (Zestril) 10 mg PO DAILY [facility] Last Admin: 11/30/17 10:27 Dose: 10 mg Lorazepam (Ativan) 0.5 mg PO TID PRN; Protocol PRN Reason: Agitation Nebivolol [Bystolic] (10 Mg) 10 mg PO HS [facility] Last Admin: 11/30/17 21:08 Dose: Not Given Polysaccharide Iron Complex (Ferrex-150) 150 mg PO DAILY [facility] Last Admin: 11/30/17 13:40 Dose: 150 mg Quetiapine Fumarate (Seroquel) 25 mg PO BID [facility] PRN Reason: Protocol Last Admin: 11/30/17 17:03 Dose: 25 mg - Labs Labs: 11/30/17 06:10 11/30/17 06:10 PT 11.3 SECONDS (9.4-12.5) 11/28/17 20:50 INR 1.04 (0.93-1.08) 11/28/17 20:50 APTT 27.8 Seconds (25.1-36.5) 11/28/17 20:50
[2017-12-01] MEDS: Sodium Chloride 0.9% 1,000 ML IV SCH ×3 (08:04→08:06)
--- NOTE | 2017-12-01 08:41 | CON ---
DATE: 11/30/2017 She is being seen today for a consultation. PRESENTATION: The patient is an 82-year-old white female seen at bedside. She is sitting in a chair. Consultation was called because the patient reportedly was having hallucinations at home prior to admission. She was brought into the emergency room by EMS for her altered mental status. She was seeing people walking around her home. She indicates that at the time she was also having chronic headaches. The patient was able to tell to me why she had been admitted. She indicates that she lives alone. She has a son and [id number] who live in [place]. She lives on the second floor of [place]-family [place], which she rents. The landlord lives on one floor and a relative lives on another floor and she lives on the ground floor. She is happy in her apartment, does not want to leave; however, she is pretty isolated. She has one friend, who moved down the shore. She said all of her friends have at this point or moved down the shore. She really does not have anyone close to her who she socializes with or spends time with. Her son and her [id number] in particular are very concerned about her living alone. They have gotten her a MedicAlert necklace, which she was told was waterproof, to wear in a shower and it did not work after she has been in a shower, so she send it back. She does not have any check on her daily, though I believe her son and [id number] call her daily. She indicates that she sees her private medical doctor, Dr. Dupree regularly and that he also had her see a neurologist whose name she does not recall recently because of some changes in her mental status, so she recently had a CAT scan and an MRI of her head. She indicates that she does feel lonely at times. She also is having some problems seeing distance-candelario because she broke her glasses, she needs to get someone to get her glasses fixed, really has a very limited support system. While we are talking on, they come to get her to go for an MRI of her head. The patient gets upset by this, indicates that she just had one, she does not want to have another one and indicates she is not afraid of the test itself. She just does not feel like she needs another test. She gets quite upset and jittery, but the nurses are able to talk with her and explain why a repeat is being done and she did consent to the test. MENTAL STATUS EXAM: The patient is alert and she is oriented as to who she is and place. She is fuzzy on the date, but she knows the year, knows the President. She is very cooperative in conversation. She talks circumstantially but appears to enjoy the contact. Her mood is anxious. Her affect is constricted. Her thoughts are circumstantial and tangential. She denies being suicidal or homicidal. She denies the presence of hallucination. She does tell me about seeing people in her apartment. She indicates that at this point that is cleared. She denies the presence of audio hallucinations, delusions, or paranoia. Her concentration and focus are somewhat scattered, this may be her baseline. Memory, both short and halfway appeared to have some deficit. Her appetite, she indicates, is good and she indicates that she is sleeping well at night. PHYSICAL EXAMINATION: VITAL SIGNS: Her current vital signs include temperature is 97.6, pulse rate of 66, blood pressure 137/60, respiratory rate of 20, and O2 saturation of 96. In terms of urine culture results, patient was found to have Gram-negative denita in her urine culture preliminarily. Certainly, the patient's age and presentation could account for her hallucination on admission. CURRENT MEDICATIONS: Aspirin, atorvastatin, Rocephin, Zestril, Ativan 0.5 mg p.o. t.i.d. p.r.n. agitation, which has not been used, Bystolic, iron, and Seroquel 25 mg 1 p.o. b.i.d. being given probably for the hallucinations. The patient appears to be tolerating her medications well. DIAGNOSTIC IMPRESSION: Anxiety disorder, unspecified; hypertension; urinary tract infection; dehydration. PLAN: The patient psychiatrically appears to have stabilized. I would expect her to clear further if the urinary tract infection clears and her hydration levels continue. I did talk with the patient about the importance of hydration, etc. She is able to converse appropriately and is interested in her health. She does follow up with her private medical doctor regularly. We will continue to follow. Thank you for this consultation. Shy Soliman APN [facility] # [id number]
[2017-12-01] MEDS: Iron Complex Polysacch 150mg Cap PO SCH (09:20)
[2017-12-01] MEDS: cefTRIAXone 1 gm 1 GM/100 ML BAG IVPB SCH (09:21)
[2017-12-01 10:33] LABS: BASO # 0.04 K/mm3 (0.0-2.0); BASO % 0.5 % (0.0-3.0); EOS # 0.2 (0.0-0.7); EOS % 2.6 % (1.5-5.0); GRAN # 5.23 (1.4-6.5); GRAN % 67.5 % (50.0-68.0); HEMOGLOBIN 9.7 g/dL (12.0-16.0); LYMPH # 1.5 (1.2-3.4); LYMPH % 19.6 % (22.0-35.0); MEAN CELL VOLUME 90.9 fl (80.0-105.0); MEAN CORPUSCULAR HEMOGLOBIN 30.3 pg (25.0-35.0); MEAN CORPUSCULAR HGB CONC 33.3 g/dl (31.0-37.0); MEAN PLATELET VOLUME 10.3 fl (7.0-11.0); MONO # 0.8 (0.1-0.6); MONO % 9.8 % (1.0-6.0); RBC 3.2 10^6/uL (3.5-6.1); RED CELL DISTRIBUTION WIDTH 13.3 % (11.5-14.5); WHITE BLOOD COUNT 7.8 10^3/ul (4.5-11.0)
[2017-12-01 10:53] LABS: ALB/GLOB RATIO 1.1 (1.1-1.8); ALBUMIN 3.5 g/dL (3.0-4.8); ALT/SGPT 30 U/L (7-56); AST/SGOT 28 U/L (14-36); BLOOD UREA NITROGEN 13 mg/dL (7-21); CALCIUM 8.9 mg/dL (8.4-10.5); GFR AFRICAN-AMERICAN > 60; GFR NON-AFRICAN AMERICAN > 60
[2017-12-01 10:54] LABS: B-TYPE NATRIURETIC PEPTIDE 2810 pg/mL (0-450)
[2017-12-01] MEDS ORDERED: DiphenhydrAMINE 50 mg/ml Inj IM STA (12:02)
--- NOTE | 2017-12-01 13:36 | PN ---
DATE: SUBJECTIVE: The patient is currently seen, a bit agitated in her room on 3-R lying in bed. The patient continues on IV fluid hydration. Her BUN and creatinine have returned to baseline range and her oral intake is adequate. The pain and avoid that. MEDICATIONS: Medication list reviewed. The patient is on aspirin, Ativan, iron, Lipitor, Bystolic, Rocephin, Seroquel, normal saline 60 mL an hour which will be discontinued, Xanax, and Zestril. OBJECTIVE: INTAKE/OUTPUT: Intake of 1800 and output of 201. VITAL SIGNS: Blood pressure ranging from 137 to 163 systolic and diastolics ranging from 60 to 78. Heart rate of 77, temperature of 99.4, and respiratory rate is 20. HEENT EXAM: Normocephalic and atraumatic. Conjunctivae are pink. Sclerae are nonicteric. NECK: Supple. No neck vein distention. CHEST: Clear to auscultation and percussion. No rales and no rhonchi or wheezing. CARDIOVASCULAR: Regular rate and rhythm without audible murmurs, rubs or gallops. GASTROINTESTINAL: Abdomen is soft. Bowel sounds are normal. No rebound, no guarding, and no masses. EXTREMITIES: Show no cyanosis, clubbing or edema. Distal lower extremity pulses are normal at 2+. NEUROLOGIC: Shows her to be alert, feisty and apparently back to baseline. LABORATORY DATA AND IMAGING STUDIES: CBC: Today white blood cell count of 7.8 and hemoglobin of 9.7 with a platelet count of 260,000. Chemistry showed normal electrolytes. Chloride slightly elevated at 108. BUN is down to 13 from a high of 55. Creatinine is down to 0.6 from a high of 1.9. She is now at her baseline range. Glucose is 102. Calcium was 8.9 and phosphorus was mildly low at 2.3. Liver enzymes are normal. Microbiology. Urine is positive for Escherichia coli-coli. ASSESSMENT: 1. Altered mental status appears to have resolved. The patient appears to be agitated this morning. 2. Status post acute elevation of blood urea nitrogen and creatinine likely secondary to volume depletion and perhaps secondary to her urinary tract infection. At present, her BUN and creatinine are back to normal. As long as her p.o. intake is adequate, I feel comfortable discontinuing her p.o. fluid hydration. 3. Mild anemia. With intravenous fluid hydration, the hemoglobin is down from 10.8 to 9 .7. This is an acceptable drop. Iron saturations are 19%. Ferritin was 138. B12 folate levels were normal. The patient was started on oral iron supplements. 4. History of mild hyperlipidemia. The patient may continue statin therapy. Her creatine phosphokinase elevation likely secondary to statin therapy, has improved. PLAN 1. Lisinopril restarted as of today. This should help improve her blood pressure control. 2. Continue antibiotic therapy for her urinary tract infection. From renal standpoint, she may be switched over to oral antibiotic therapy. 3. Continue oral iron supplements for mild anemia. 4. Discussed with staff. We will try to make certain that she takes an adequate amounts of p.o. fluid hydration and I will discontinue IV fluids as of today. 5. We will supplement her mild hypophosphatemia with Neutra-Phos. Amador Cheema MD
[2017-12-01] MEDS: Potassium & Sodium Phosphate PO SCH (13:45)
[2017-12-01] MEDS ORDERED: DiphenhydrAMINE 50 mg/ml Inj IM PRN (16:10)
[2017-12-01] MEDS: Metoprolol Succinate 100 mg XL Tab PO SCH (18:17)
[2017-12-02] MEDS ORDERED: Albuterol-Ipratrop 3 mg / 0.5 (3 ml) UD IH ONE (02:00)
--- NOTE | 2017-12-02 02:32 | PN ---
DATE: 12/01/2017 SUBJECTIVE: The patient is an 82-year-old with a known psychiatric history. The patient was admitted on the medical side under delirium stage. The patient had visual hallucinations. Psychiatry consult was called for visual hallucinations and change in mental status. The patient's presentation is waxing and waning yesterday at the morning time when the patient was evaluated by nurse practitioner. The patient presented better. Denied that she had any hallucinations later on. The patient became combative, agitated, and required to have multiple p.r.n's over the night time. The patient was found to have urinary tract infection, which contributed to the patient's presentation and also dehydration. The patient was seen today together with the nurse practitioner. The patient presented to be confused, actively hallucinating, picking something in the air, and talking to the corner of the room. PHYSICAL EXAMINATION: VITAL SIGNS: Seems to be stable. Temperature 97.4, pulse is 87, earlier the patient's pulse was 107, blood pressure 191/95, respirations 18. Oxygen saturation is 95. MEDICATIONS: Reviewed. The patient was on Xanax, Lipitor, Zestril, Ativan 3 times a day p.r.n. Also the patient is on Ferrex and Nutrafol. The patient was seen by Neurology team and the patient was started with Seroquel 25 mg twice a day, but was later recommended to increase the dose yesterday over nighttime. Over nighttime, the patient got Geodon altogether with 30 mg as well as Seroquel 25 mg, and Ativan 0.5 mg, but it was not successful. LABORATORY DATA: Reviewed. The patient's leukocytosis was better. Chemistry reviewed today. Chloride 107 and BNP is 2810. Urinalysis showed leukocyte esterase trace and E. coli positive. The patient also is on antibiotics for urinary tract infection, Rocephin. MENTAL STATUS EXAMINATION: The patient presented to be disoriented, confused, not able to provide any information, actively hallucinating, screaming in the middle of the conversation. No meaningful conversation possible. IMPRESSION: Most likely the patient has delirium stage, which contributed by urinary tract infection as well as dehydration as well as medical issues. PLAN: Discharge her. Suggested to adjust medications. The patient is combative at times. She is not taking any p.o., medication, that is why Haldol was started 0.5 mg but the patient was not able to calm down, and therefore, Haldol was increased to 1 mg twice a day as needed for severe agitation with Benadryl 25 mg twice a day together. Also in between, the patient could have Ativan IV push but try not over sedate the patient, 0.5 mg IV push q. 8 hours p.r.n., for restlessness. The patient is on 1:1 right now. The patient will be scheduled dose of Seroquel 50 mg twice a day. This conventional mortgage underwriter recommended neurology consultation and follow up as well as primary care physician is to be notified. CBC and CMP needs to be monitored and also vital signs needs to be monitored. This conventional mortgage underwriter advised nurse practitioner to give a call to the POA of the patient, since the patient has her son to be POA and let him know about treatment plan; and risks, and benefits, and alternatives of medication is to be discussed with the family. We will follow up on this patient closely. Should you have any questions, give me a call back. Thank you very much for letting me to participate in the care of your patient. Mary Chris MD
--- NOTE | 2017-12-02 04:58 | CP.PCM.PN ---
Subjective - Date & Time of Evaluation Date of Evaluation: 12/02/17 Time of Evaluation: 04:57 - Subjective Subjective: Patient was seen because nurse noticed that patient has wheezing. Patient is little restless and does not talk. Medical record was reviewed. 82 year old white woman was admitted with altered dehydration, mental status, uremia,mild rhabdomyolysis. PMH : HTN, HLD, anemia, DJD, PVD, back pain, gastroenteritis. Objective - Vital Signs/Intake and Output Vital Signs (last 24 hours): Temp Pulse Resp BP Pulse Ox 98.9 F 81 20 147/67 96 12/01/17 16:00 12/01/17 16:00 12/01/17 16:00 12/01/17 16:00 12/01/17 16:00 Intake and Output: 12/01/17 12/02/17 18:59 06:59 Intake Total 720 60 Balance 720 60 - Medications Medications: Current Medications Alprazolam (Xanax) 0.5 mg PO BID PRN; Protocol PRN Reason: Anxiety Last Admin: 12/01/17 09:20 Dose: 0.5 mg Amlodipine Besylate (Norvasc) 5 mg PO DAILY [facility] Aspirin (Aspirin Chewable) 81 mg PO DAILY [facility] Last Admin: 12/01/17 09:20 Dose: 81 mg Atorvastatin Calcium (Lipitor) 10 mg PO HS [facility] Last Admin: 12/01/17 22:44 Dose: Not Given Cefpodoxime Proxetil (Vantin) 200 mg PO Q12 [place]ER[place] Diphenhydramine HCl (Benadryl) 25 mg IM Q12H PRN PRN Reason: severe agitation Last Admin: 12/01/17 18:16 Dose: 25 mg Haloperidol Lactate (Haldol) 1 mg IM Q12H PRN; Protocol PRN Reason: severe agitation Last Admin: 12/01/17 18:17 Dose: 1 mg Lisinopril (Zestril) 10 mg PO DAILY [facility] Last Admin: 12/01/17 09:48 Dose: Not Given Lorazepam (Ativan) 0.5 mg PO TID PRN; Protocol PRN Reason: Agitation Last Admin: 12/01/17 13:44 Dose: 0.5 mg Lorazepam (Ativan) 0.5 mg IVP Q8H PRN; Protocol PRN Reason: Restlessness Last Admin: 12/01/17 18:14 Dose: 0.5 mg Metoprolol Succinate (Toprol Xl) 100 mg PO BRK [facility] Last Admin: 12/01/17 18:17 Dose: 100 mg Nebivolol [Bystolic] (10 Mg) 10 mg PO HS [facility] Last Admin: 12/01/17 22:44 Dose: Not Given Polysaccharide Iron Complex (Ferrex-150) 150 mg PO DAILY [facility] Last Admin: 12/01/17 09:20 Dose: 150 mg Potassium Phos/Sodium Phos (Neutra-Phos) 1 pkt PO DAILY [facility] Last Admin: 12/01/17 13:45 Dose: 1 pkt Quetiapine Fumarate (Seroquel) 50 mg PO BID [facility] PRN Reason: Protocol Last Admin: 12/01/17 18:17 Dose: 50 mg - Labs Labs: 12/01/17 10:10 12/01/17 10:10 PT 11.3 SECONDS (9.4-12.5) 11/28/17 20:50 INR 1.04 (0.93-1.08) 11/28/17 20:50 APTT 27.8 Seconds (25.1-36.5) 11/28/17 20:50 Micro Results 11/29/17 18:33 Urine Urine Culture - Final Escherichia Coli Most Recent Lab Values WBC 7.8 10^3/ul (4.5-11.0) 12/01/17 10:10 RBC 3.20 10^6/uL (3.5-6.1) L 12/01/17 10:10 Hgb 9.7 g/dL (12.0-16.0) L 12/01/17 10:10 Hct 29.1 % (36.0-48.0) L 12/01/17 10:10 MCV 90.9 fl (80.0-105.0) 12/01/17 10:10 MCH 30.3 pg (25.0-35.0) 12/01/17 10:10 MCHC 33.3 g/dl (31.0-37.0) 12/01/17 10:10 RDW 13.3 % (11.5-14.5) 12/01/17 10:10 Plt Count 260 10^3/uL (120.0-450.0) 12/01/17 10:10 MPV 10.3 fl (7.0-11.0) 12/01/17 10:10 Gran % 67.5 % (50.0-68.0) 12/01/17 10:10 Lymph % (Auto) 19.6 % (22.0-35.0) L 12/01/17 10:10 [place] % (Auto) 9.8 % (1.0-6.0) H 12/01/17 10:10 Eos % (Auto) 2.6 % (1.5-5.0) 12/01/17 10:10 Baso % (Auto) 0.5 % (0.0-3.0) 12/01/17 10:10 Gran # 5.23 (1.4-6.5) 12/01/17 10:10 Lymph # 1.5 (1.2-3.4) 12/01/17 10:10 [place] # 0.8 (0.1-0.6) H 12/01/17 10:10 Eos # 0.2 (0.0-0.7) 12/01/17 10:10 Baso # 0.04 K/mm3 (0.0-2.0) 12/01/17 10:10 ESR 40 mm/hr (0.0-20.0) H 12/01/17 10:10 PT 11.3 SECONDS (9.4-12.5) 11/28/17 20:50 INR 1.04 (0.93-1.08) 11/28/17 20:50 APTT 27.8 Seconds (25.1-36.5) 11/28/17 20:50 Sodium 138 mmol/L (132-148) 12/01/17 10:10 Potassium 4.1 mmol/L (3.6-5.0) 12/01/17 10:10 Chloride 108 mmol/L (98-107) H 12/01/17 10:10 Carbon Dioxide 21 mmol/L (21-33) 12/01/17 10:10 Anion Gap 13 (10-20) 12/01/17 10:10 BUN 13 mg/dL (7-21) 12/01/17 10:10 Creatinine 0.6 mg/dl (0.7-1.2) L 12/01/17 10:10 Est GFR ( Amer) > 60 12/01/17 10:10 Est GFR (Non-Af Amer) > 60 12/01/17 10:10 POC Glucose (mg/dL) 87 mg/dL (65-110) 12/01/17 01:47 Random Glucose 102 mg/dL (70-110) 12/01/17 10:10 Calcium 8.9 mg/dL (8.4-10.5) 12/01/17 10:10 Phosphorus 2.3 mg/dL (2.5-4.5) L 11/30/17 06:10 Magnesium 2.0 mg/dL (1.7-2.2) 11/30/17 06:10 Iron 49 ug/dL (45-180) 11/30/17 06:10 TIBC 256 ug/dL (265-497) L 11/30/17 06:10 % Saturation 19 % (20-55) L 11/30/17 06:10 Ferritin 138.0 ng/mL 11/30/17 06:10 Total Bilirubin 0.4 mg/dL (0.2-1.3) 12/01/17 10:10 AST 28 U/L (14-36) 12/01/17 10:10 ALT 30 U/L (7-56) 12/01/17 10:10 Alkaline Phosphatase 58 U/L (38-126) 12/01/17 10:10 Lactate Dehydrogenase 862 U/L (333-699) H 11/28/17 20:50 Total Creatine Kinase 207 U/L (35-230) 11/30/17 06:10 CK-MB (CK-2) 4.4 ng/mL (0.0-3.6) H 11/28/17 20:50 CK-MB (CK-2) % Cancelled 11/28/17 20:50 Troponin I < 0.01 ng/mL 11/28/17 20:50 NT-Pro-B Natriuret Pep 2810 pg/mL (0-450) H 12/01/17 10:10 Total Protein 6.8 g/dL (5.8-8.3) 12/01/17 10:10 Albumin 3.5 g/dL (3.0-4.8) 12/01/17 10:10 Globulin 3.2 gm/dL 12/01/17 10:10 Albumin/Globulin Ratio 1.1 (1.1-1.8) 12/01/17 10:10 Vitamin B12 313 pg/mL (239-931) 12/01/17 10:10 Folate 13.2 ng/mL 11/30/17 06:10 Urine Color Yellow (YELLOW) 11/29/17 18:33 Urine Appearance Clear (CLEAR) 11/29/17 18:33 Urine pH 6.0 (4.7-8.0) 11/29/17 18:33 Ur Specific [place] 1.020 (1.005-1.035) 11/29/17 18:33 Urine Protein Negative mg/dL (<30 mg/dL) 11/29/17 18:33 Urine Glucose (UA) Negative mg/dL (NEGATIVE) 11/29/17 18:33 Urine Ketones Trace mg/dL (NEGATIVE) H 11/29/17 18:33 Urine Blood Negative (NEGATIVE) 11/29/17 18:33 Urine Nitrate Positive (NEGATIVE) H 11/29/17 18:33 Urine Bilirubin Negative (NEGATIVE) 11/29/17 18:33 Urine Urobilinogen 0.2 E.U./dL (<1 E.U./dL) 11/29/17 18:33 Ur Leukocyte Esterase Trace [place]/uL (NEGATIVE) H 11/29/17 18:33 Urine RBC 0 - 2 /hpf (0-2) 11/29/17 18:33 Urine WBC 1 - 3 /hpf (0-6) 11/29/17 18:33 Ur Epithelial Cells 1 - 3 /hpf (0-5) 11/29/17 18:33 Urine Bacteria Many (NEG) 11/29/17 18:33 - Constitutional Appears: Well, No Acute Distress - Head Exam Head Exam: ATRAUMATIC, NORMAL INSPECTION, NORMOCEPHALIC - Eye Exam Eye Exam: Normal appearance - ENT Exam ENT Exam: Normal External Ear Exam - Neck Exam Neck Exam: Normal Inspection - Respiratory Exam Respiratory Exam: Wheezes (++) - Cardiovascular Exam Cardiovascular Exam: absent: JVD - GI/Abdominal Exam GI & Abdominal Exam: absent: Distended - Rectal Exam Rectal Exam: Deferred - Exam Additional comments: Deferred. - Extremities Exam Extremities Exam: Normal Inspection - Back Exam Back Exam: NORMAL INSPECTION - Neurological Exam Neurological Exam: Altered - Psychiatric Exam Psychiatric exam: Agitated - Skin Skin Exam: Normal Color Assessment and Plan - Assessment and Plan (Free Text) Assessment: Wheezing. Agitation. HTN. Dehydration. Anemia. HLD. Plan: Duoneb treatment as ordered. Continue present management.
[2017-12-02 06:45] LABS: MEAN CELL VOLUME 90.5 fl (80.0-105.0); MEAN CORPUSCULAR HEMOGLOBIN 29.8 pg (25.0-35.0); MEAN CORPUSCULAR HGB CONC 32.9 g/dl (31.0-37.0); MEAN PLATELET VOLUME 10.3 fl (7.0-11.0); RBC 3.36 10^6/uL (3.5-6.1); RED CELL DISTRIBUTION WIDTH 13.4 % (11.5-14.5); WHITE BLOOD COUNT 9.3 10^3/ul (4.5-11.0)
[2017-12-02 07:43] LABS: ALB/GLOB RATIO 1.2 (1.1-1.8); ALBUMIN 3.9 g/dL (3.0-4.8); ALT/SGPT 36 U/L (7-56); AST/SGOT 50 U/L (14-36); BLOOD UREA NITROGEN 11 mg/dL (7-21); CALCIUM 9.4 mg/dL (8.4-10.5); GFR AFRICAN-AMERICAN > 60; GFR NON-AFRICAN AMERICAN > 60; MAGNESIUM 1.7 mg/dL (1.7-2.2)
--- NOTE | 2017-12-02 09:19 | CON ---
DATE: 12/01/2017 She is being seen today for a followup consultation PRESENTATION: Patient today is seen at bedside, Dr. Chris is in attendance. Patient's consult was originally called for hallucinations. Patient was originally seen for the first time yesterday on consultation. In terms of her mental status, there was some confusion, but on the whole she was fairly clear. She was able to give me a history, told me about her family and some of her background. In contrast to today, she is seen in restraints. She is calling around in the bed. She is picking at her blankets and sheets. She does not recognize me. She does have one-to-one sitting with her for safety. She is in soft restraints. In review of the nurses notes, she began to be confused, probably some around 8 o'clock. Last night they called Dr. Chris for p.r.n. orders which were given; however, patient's mental status is not cleared. She is significantly more confused today. She does know her name, but little else. She talked to people that are not there. She tried to show me something pointing at the wall. She talks about getting someone a hamburger. Really, she is having a very difficult time. She is anxious and easily agitated because of the confusion. Last night, power of divorce attorney was signed for patient's sonarmin Arora to be her power of divorce attorney and this information is on the chart. According to social work notes, they are looking for subacute care facility for her. Upon discharge, review of nurses notes and orders were reviewed. CURRENT MEDICATIONS: Xanax 0.5 mg 1 p.o. b.i.d. p.r.n., Norvasc, aspirin, Lipitor, Vantin, lisinopril, Toprol XL, iron supplement as well as Seroquel 50 mg one p.o. b.i.d. Today in terms of p.r.n., Dr. Hernandez gave orders for Haldol 1 mg IM q. 12 hours p.r.n., Benadryl 25 mg IM q. 12 hours p.r.n., and Ativan 0.5 mg IV push q. 8 hours. Patient has become calmer with this intervention, but mentally has not cleared. PHYSICAL EXAMINATION VITAL SIGNS: Temperature of 98.9, pulse rate of 81, blood pressure of 147/67, respiratory rate of 20 with O2 saturation of 96. MENTAL STATUS EXAM: Patient is only oriented to her name. She is confused in all spheres. She is not able to care for herself. She has been incontinent in the past. She does not know where she is. She talks to people that are not there. She is actively hallucinating. She bennett have one-to-one with her for her safety and is in soft restraints. DIAGNOSTIC IMPRESSION: Delirium due to other medical conditions. PLAN: Patient will continue to be followed by psychiatry, however, such a drastic change within 24 hour period may indicate something medically is going on. It is more emergent at this time. We will continue to follow. Dr. Cevallos will be taking over care of this patient starting tomorrow. Thank you for the consult. Shy Soliman APN
[2017-12-02] MEDS: Iron Complex Polysacch 150mg Cap PO SCH (10:43)
[2017-12-02] MEDS: Potassium & Sodium Phosphate PO SCH (10:44)
[2017-12-02] MEDS: Cefpodoxime (Vantin) 200 mg Tab PO SCH (10:46)
[2017-12-02] MEDS: Metoprolol Succinate 100 mg XL Tab PO SCH (10:46)
--- NOTE | 2017-12-02 11:39 | PN ---
DATE: SUBJECTIVE: An 82-year-old female, admitted to the hospital with change mental status, confusion, disorientation, urinary tract infection. PHYSICAL EXAMINATION: VITAL SIGNS: The patient has temperature 100.7, pulse of 106, 148/86 blood pressure. LABORATORY DATA: White count is 9.3. Laboratory data, otherwise unremarkable. PLAN: The patient is being treated for sepsis, also for change mental status, confusion. Not sleeping at night, . E. coli was found in the urine, which is sensitive to her antibiotics with nonresistant type. The patient is still having difficulty with disorientation and confusion. She is being treated with different antipsychotic and anxiolytic medication. She is being seen by Dr. Hernandez. She will remain on IV antibiotics, restraints because of getting out of bed and psychological evaluation. Joaquin Dupree MD
--- NOTE | 2017-12-02 13:27 | PQF SEPSIS ---
This form is a permanent part of the medical record Dr. Dupree, Your progress note from 12/02/17 states "patient is being treated for sepsis". Please clarify if you are treating a localized UTI or if sepsis was present on admission or ruled out as this will affect the acuity/severity of the coding. Clarification of your documentation is requested to better reflect the severity of illness and intensity of treatment of your patient. Indicators present [x] Temp < 96.8 or > 100.4 [] WBC count > 12,000/mm3 or <000/mm3 or 10% immature neutrophils [x] Heart Rate > 90 [] Respiratory Rate > 20 x]x Fever or hypothermia [] Chills [] Positive blood cultures [] Hypotension [] Metabolic acidosis (Elevated lactate level, anion gap or reduced blood pH) [x] Acute confusion /Altered Mental Status [] Shock [] Other: [] Location in the medical record that reflects the above clinical findings: [] Treatment Provided: [] PHYSICIAN'S RESPONSE Based on your medical judgment of the clinical indicators outlined above, are you treating this patient for a known or suspected: [] Sepsis / Septicemia Please specify organism if known [] [] SIRS (Systemic Inflammatory Response Syndrome) [] Severe Sepsis (Sepsis with Associated Organ Dysfunction) [] Fever of Unknown Origin [] Other, please indicate: [] x[] If Unable to Determine, please check the box, sign and date. Present On Admission (POA) Indicator: [] Present at the time of admission [x] Not present at the time of admission [] Clinically Undetermined In responding to this query, please exercise your independent professional judgment. The fact that a question is asked does not imply that any particular answer is desired or expected. Thank you for your clarification on this documentation. If you have any questions please call:[ ] * Thank you, [ ]Tejinder Bragg [facility] #[id number] frit burner JANESSA
--- NOTE | 2017-12-02 18:13 | PN ---
DATE: 12/02/2017 SUBJECTIVE: The patient is seen lying in bed. She is on one-to-one observation. She is very agitated. She is in wrist restrains. PHYSICAL EXAMINATION GENERAL: The patient appears comfortable, she is agitated. She will not let me examine her. VITAL SIGNS: Blood pressure 166/95, heart rate 106, respiratory rate 18, and T-max is 100.7. EXTREMITIES: No lower extremity edema. INTAKE AND OUTPUT: 900/not tracked. LABORATORY DATA: WBC 9, hemoglobin 10, hematocrit 30, and platelets 281. Sodium 139, potassium 4.2, chloride 106, CO2 of 23, BUN 11, creatinine 0.7, glucose 78, calcium 9.4, phosphorous 3.1, magnesium 1.7, AST 50, ALT 36, and albumin 3.9. Urine culture, E. Coli. CURRENT MEDICATIONS: Aspirin, Ativan, Benadryl, Haldol, Lipitor, Bystolic 10 mg, Neutra-Phos, Amlodipine 5, Seroquel, Toprol-XL 100, Vantin, Xanax, and Zestril. ASSESSMENT AND PLAN: 1. Altered mental status, the patient is very agitated. 2. Acute kidney injury, resolved, likely prerenal azotemia. 3. Mild anemia. 4. Hyperlipidemia. 5. New fever. PLAN: 1. Continue Lisinopril. 2. Continue antibiotics for E. Coli UTI. 3. Neurology follow up. 4. Continue one-to-one observation. Linda Rowe MD
[2017-12-03 08:05] LABS: ALB/GLOB RATIO 1.1 (1.1-1.8); ALBUMIN 4.1 g/dL (3.0-4.8); ALT/SGPT 40 U/L (7-56); AST/SGOT 47 U/L (14-36); BLOOD UREA NITROGEN 18 mg/dL (7-21); GFR AFRICAN-AMERICAN > 60; GFR NON-AFRICAN AMERICAN > 60
[2017-12-03 08:10] LABS: HEMOGLOBIN 10.9 g/dL (12.0-16.0); MEAN CORPUSCULAR HGB CONC 32.6 g/dl (31.0-37.0); MEAN PLATELET VOLUME 11.5 fl (7.0-11.0); RBC 3.63 10^6/uL (3.5-6.1); RED CELL DISTRIBUTION WIDTH 13.5 % (11.5-14.5); WHITE BLOOD COUNT 8.1 10^3/ul (4.5-11.0)
[2017-12-03] MEDS: Potassium & Sodium Phosphate PO SCH (11:13)
[2017-12-03] MEDS: Iron Complex Polysacch 150mg Cap PO SCH (11:13)
[2017-12-03] MEDS: Metoprolol Succinate 100 mg XL Tab PO SCH (11:14)
[2017-12-03] MEDS: Cefpodoxime (Vantin) 200 mg Tab PO SCH ×3 (11:14→22:08)
--- NOTE | 2017-12-03 12:41 | PN ---
SUBJECTIVE: An 82-year-old white female with acute confusional state, urinary tract infection and E. coli, upon antibiotics, afebrile today. Vital signs stable. The patient is still having visual and auditory hallucinations. She is confused and disoriented. Workup is in progress. Plan is to continue IV antibiotics and restraints because of being a harm to herself and to others. OBJECTIVE: VITAL SIGNS: Stable. CHEST: Clear to auscultation and percussion. HEART: Reveals regular sinus rhythm. The patient is awake and alert, but confused. Plan is to continue monitor her laboratory data, continue IV antibiotics and psych consult. Joaquin Dupree MD
--- NOTE | 2017-12-03 14:57 | PN ---
DATE: 12/03/2017 SUBJECTIVE: The patient is seen, lying in bed. She is awake, she is alert. She is confused. She is rambling. She is not making much sense. PHYSICAL EXAMINATION: GENERAL: Elderly lady, lying in bed, in restraints, and one-to-one observation. VITAL SIGNS: Blood pressure 140/67, heart rate 91, respiratory rate 18, temperature 98. HEENT: Normocephalic, atraumatic, positive pallor. NECK: Supple, no JVD. LUNGS: Bilateral equal air entry, bilateral equal expansion, no rales. CARDIAC: S1, S2. Regular rate and rhythm. No murmur, no rub. ABDOMEN: Obese, distended, soft, nontender. Bowel sounds present. EXTREMITIES: No lower extremity edema. INTAKE AND OUTPUT: Not charted. LABORATORY DATA: WBC 8, hemoglobin 10.9, hematocrit 33, platelets 317. Sodium 143, potassium 3.7, chloride 107, CO2 22, BUN 18, creatinine 0.6, glucose 79, calcium 10.0, AST 47, ALT 40. CURRENT MEDICATIONS: Ativan, Benadryl, iron, Haldol, Lipitor, Xanax. ASSESSMENT: 1. Altered mental status, the patient appears somewhat better than yesterday, but very confused. 2. Escherichia coli urinary tract infection. 3. Resolved acute kidney injury, prerenal azotemia. 4. Hypernatremia. 5. Hypokalemia. PLAN: 1. Continue antibiotics for E. coli UTI ? change to IV since the patient is not taking any p.o. meds. 2. Blood pressure seems acceptable. 3. Awaiting psych consult. Linda Rowe MD
--- NOTE | 2017-12-03 23:02 | CON ---
DATE: HISTORY OF PRESENT ILLNESS: The patient is an 82-year-old white female, who is being followed by Psychiatry for delirium related visual hallucinations and confusion as well as agitation on the unit. The patient has been presenting with waxing and waning mental status with periods of confusion and agitation, dispersed with some periods of lucidity and cooperation; though, she has never been entirely oriented in this provider's opinion. I spoke with the patient's nurse and the patient was agitated, pulling her tubes last night, and quite confused; however, again she is in much better control this morning when I visit with her. She is worried to participate in the conversation; however, she is at times disorganized. She is oriented to the fact that she is in the hospital ;however, does not to month or year, or the reason for current hospitalization; although, she is gently pleasant with superficially cooperative. She denies hallucinations. She denies she is in danger. She does not recall her periods of agitation and this provided attempts to orient her a few times to current circumstances, month, year, and the fact that she is safe and that we are trying to help her and there is no need for fear on her part. The patient appears to respond to this; however, it is unclear whether she will recall these reassurances at a later time. Again, she is not hallucinating at this time. At some point, her responses are not relevant to questioning. Her insight and judgment are considered to be poor at this time. Vital signs and labs were reviewed by this provider. MEDICATIONS: Include Xanax 0.5 mg p.o. b.i.d. p.r.n. The patient received one dose on 12/01/2017, which is 2 days ago, Benadryl 25 mg q. 12 hours, which she received one dose 2 days ago on 12/01/2017, Haldol 1 mg IM q. 12 hours p.r.n., which she received one dose on 12/01/2017, 2 days ago, Ativan 0.5 mg p.o. t.i.d. p.r.n., again she only received one dose 2 days ago on 12/01/2017, Ativan 0.5 mg q.8 hours p.r.n., she received one dose on 12/01/2017 and one dose on 12/02/2017, and Seroquel 50 mg p.o. b.i.d. scheduled, which the patient refused last night and apparently stick out later this morning. IMPRESSION: The patient is delirious. Please note that delirium can take weeks to resolve even when the original medical issue has been adjust and corrected. PLAN: We will continue with current treatment and plan. Please provide Seroquel during the patient is more lucid. So that she will be agreeable to the medication even if it is not at the exact time of the schedule. If the patient refuses Seroquel, please provide Haldol p.r.n. in lieu of Seroquel. The patient's mental status appears to be better. We will make a change in the patient's mental status that she is still suffering from delirium and Psychiatry will continue to follow every other day and monitor her status and tolerance to medication. Althea Cevallos MD
--- NOTE | 2017-12-04 08:20 | RAD ---
PROCEDURE: CHEST RADIOGRAPH, 1 VIEW HISTORY: wheezing ,temp COMPARISON: None available. FINDINGS: LUNGS: Clear. PLEURA: No pneumothorax or pleural fluid seen. CARDIOVASCULAR: Normal. OSSEOUS STRUCTURES: No significant abnormalities. VISUALIZED UPPER ABDOMEN: Normal. OTHER FINDINGS: None. IMPRESSION: No active disease.
[2017-12-04] MEDS: Cefpodoxime (Vantin) 200 mg Tab PO SCH ×2 (10:15→21:34)
[2017-12-04] MEDS: Iron Complex Polysacch 150mg Cap PO SCH (10:15)
[2017-12-04] MEDS: Potassium & Sodium Phosphate PO SCH (10:16)
[2017-12-04] MEDS: Metoprolol Succinate 100 mg XL Tab PO SCH (10:18)
--- NOTE | 2017-12-04 12:16 | PN ---
DATE: SUBJECTIVE: The patient is an 82-year-old white female who is admitted to the hospital with change in mental status, confusion, and disorientation. She was found to have urinary tract infection with Escherichia coli. The patient is responding to IV antibiotics. Today, she is calm and she still confused. She is in soft restrains. PHYSICAL EXAMINATION: VITAL SIGNS: Her temperature is 97.8. Vital signs are stable. LABORATORY DATA: White count is 8.1. ASSESSMENT AND PLAN: The patient is less agitated than previous days, but still has episodes of confusion. We are looking for retirement placement versus subacute rehab until her infection clear. She has been Psychiatric. She is continued to receive antibiotics for her urinary tract infection. Joaquin Dupree MD
[2017-12-04] MEDS ORDERED: POLYETHYLENE GLYCOL 3350 17 GM/Dose PACKET PO ONE (18:28)
--- NOTE | 2017-12-04 18:31 | PN ---
DATE: 12/04/2017 SUBJECTIVE: The patient is seen lying in bed. She is still in restraints. She is awake and alert. She is oriented. Family members are at bedside. She denies any pain. She denies any shortness of breath. She does have some cough. PHYSICAL EXAMINATION GENERAL: Elderly lady lying in bed. VITAL SIGNS: Blood pressure 162/80, heart rate 102, respiratory rate 20, temperature 97.8. HEENT: Normocephalic, atraumatic. NECK: Supple, no JVD. LUNGS: Bilateral equal air entry, bilateral equal expansion, no rales. CARDIAC: S1 and S2. Regular rate and rhythm, no murmur, no rub. ABDOMEN: Soft, nondistended, nontender, bowel sounds present. EXTREMITIES: No lower extremity edema. LABORATORY DATA: WBC 8, hemoglobin 10.9, hematocrit 33, platelets 317. Sodium 143, potassium 3.7, chloride 107, CO2 22, BUN 18, creatinine 0.6, glucose 79, calcium 10, albumin 4.1. CURRENT MEDICATIONS: Aspirin, Ativan, Benadryl, iron, Haldol, Lipitor, potassium phosphate, amlodipine, Seroquel, Toprol-XL, Vantin, Xanax, and Zestril. ASSESSMENT: 1. Altered mental status, much improved. 2. Hypertension, suboptimally controlled. 3. Hypernatremia. 4. Mild hypokalemia. 5. Escherichia coli urinary tract infection. 6. Resolved acute kidney injury, largely prerenal azotemia. PLAN: 1. Continue antibiotics. 2. Continue current antihypertensives. 3. Increase Zestril to 20 mg daily. 4. Monitor labs. Linda Rowe MD
[2017-12-04] MEDS: Pantoprazole 40 mg EC Tab PO SCH (18:36)
[2017-12-05] MEDS: Pantoprazole 40 mg EC Tab PO SCH (06:45)
--- NOTE | 2017-12-05 09:03 | CON ---
DATE: 12/02/2017 HISTORY OF PRESENT ILLNESS: The patient is a 82-year-old female who is being seen by psychiatry for delirium associated with behavioral changes as well as hallucinations. I reviewed BERNY'sShy's progress note from yesterday, which indicated the patient was seen in restrains, had been notably confused and disoriented. The still patient requires one-to-one. She was noted to be actively hallucinating and talking to people that were not there and noted to be anxious and easily agitated. Of note, the patient's son was signed to be power of attorney lawyer during the course of this hospitalization. I met with the patient at bedside and she is to cooperative and as noted she remains on one-to-one. Recent nursing notes indicated she continues to be restless and trying to remove tubing and has required restraints; however, these were removed earlier today. She can answer basic questions. She tells me that she is not. She no longer hallucinating at this time; however, denied any major issues though admits that she could be carpio and anxious. She knows that she is at [facility], [place]; however, cannot provide me the correct month and year. Presently, she is tolerating her medications and denies major concerns. She does not appear to be actively hallucinating. Althea Cevallos MD
[2017-12-05] MEDS: Iron Complex Polysacch 150mg Cap PO SCH (09:05)
[2017-12-05] MEDS: Cefpodoxime (Vantin) 200 mg Tab PO SCH ×2 (09:05→21:32)
[2017-12-05] MEDS: Potassium & Sodium Phosphate PO SCH (09:05)
[2017-12-05] MEDS: Metoprolol Succinate 100 mg XL Tab PO SCH (10:49)
--- NOTE | 2017-12-05 11:47 | PN ---
DATE: SUBJECTIVE: An 82-year-old white female who is admitted to the hospital with change in mental status, confusion, disorientation and urinary tract infection. The patient was doing well except still have some lack of mental clarity. The patient did have some nausea, vomiting, and some obstipation yesterday followed by vomiting of some coffee-ground material. The patient was started on Protonix, was kept n.p.o. overnight and given Dulcolax suppositories and lactulose. The patient is better this morning. Abdomen is soft. The patient had bowel movement. She slept all night. She has less agitation today. We will restart her diet. Continue on Protonix and stool softeners. PHYSICAL EXAMINATION: Unchanged. Abdomen is soft. Bowel sounds are normoactive. There are no masses palpable. Joaquin Dupree MD
--- NOTE | 2017-12-05 12:42 | PN ---
DATE OF SERVICE: 12/05/2017 SUBJECTIVE: The patient is seen lying in bed. She is awake. She is alert. She is still on 1 to 1 observation. As per the aid, the patient threw up this morning. Currently, she is n.p.o. The patient denies any nausea. She denies any vomiting. She denies any abdominal pain. She denies any constipation. She is asking for food. PHYSICAL EXAMINATION: GENERAL: Elderly lady, lying in bed. VITAL SIGNS: Blood pressure 100/54, heart rate 75, respiratory rate 18, temperature 98.1. HEENT: Normocephalic, atraumatic. NECK: Supple, no JVD. LUNGS: Bilateral equal air entry, equal expansion, no rales. CARDIAC: S1 and S2, regular rate and rhythm, no murmur, no rub. ABDOMEN: Soft, nondistended, nontender, bowel sounds present. EXTREMITIES: No lower extremity edema. INTAKE AND OUTPUT: Not charted. LABORATORY DATA: No new labs. CURRENT MEDICATIONS: Aspirin, Ativan, Benadryl, oral iron, Haldol, Lipitor, Neutra-Phos, amlodipine 5 mg daily, Seroquel, Toprol-XL, not given this morning, Vantin, Xanax, Zestril. ASSESSMENT: 1. Acute kidney injury, resolved. 2. Escherichia coli urinary tract infection. 3. Altered mental status, much improved. 4. Hypertension. 5. Underlying dementia?. PLAN: 1. Currently, blood pressure is well controlled, continue current antihypertensive regimen. 2. Complete antibiotics for UTI. 3. The patient is stable from the renal standpoint, I will discontinue followup. Thank you for the courtesy of this consultation. Linda Rowe MD
--- NOTE | 2017-12-05 12:43 | PN ---
DATE: 12/05/2017 The patient is being seen today by a followup consultation. PRESENTATION: The patient is an 82-year-old white female seen at bedside one to one in attendance. Nurses notes and most recent labs were reviewed. The patient was originally ordered in consult due to hallucinations. She has been followed by Psychiatry. She was found to have urinary tract infection and became very disoriented, combative for few days, and her sensorium appears to at this time be clearing. Today, she is able to recall that she has met me before. She answers to her name. She was able to tell me that she had seen her son recently and was able to tell me what food she had for breakfast and appears to be much more organized. She says she was feeling better according to the social work notes. Evidently, she has been accepted into a subacute rehab center in [place], [place], which is preferable to her son and his , who live up in [place], so once she is discharged that is the plan. MEDICATIONS: The patient's current medication include Norvasc, aspirin, Lipitor, Vantin, Zestril, Toprol XL, Bystolic, Protonix, Ferrex, Neutra-Phos, and Seroquel 50 mg one p.o. twice a day. The patient is tolerating her medications well. PHYSICAL EXAMINATION: VITAL SIGNS: Current vital signs include temperature of 98.1, pulse rate of 75, blood pressure of 100/54, respiratory rate of 19, and O2 saturation of 94%. MENTAL STATUS EXAM: The patient is alert and oriented x2. She knows her name. She knows she is in [facility], but does not know the day or the date. This is not unusual, however, for people who have been in the hospital for a period of time. Her speech rate and volume are within normal limits. Mood is euthymic. Affect has improved. Her thoughts are goal directed, but concrete. She denies being suicidal or homicidal. Denies presence of hallucinations both audio and visual delusions or paranoia. Her concentration and her focus is still somewhat scattered. Memory both short and alf has deficits. Appetite is normal and nursing notes reflect that with the patient's decreasing agitation she has started to sleep at night and she is sleeping very well. She slept very well last night and improvement in her mental status as well. DIAGNOSTIC IMPRESSION: Delirium improving, hypertension, and urinary tract infection. PLAN: As stated earlier the plan of discharge is for the patient to go to subacute rehab facility in [place], which is preferable to her family. 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 The patient is reluctant to leave [place] because she is comfortable here, but one of the concerns that she had shared with me in her prior conversation was that a lot of friends have , who have moved out of [place], so she really does not have any social support or interpersonal support here in [place]. She appears to be clearing. We will continue to follow. Shy Soliman APN
[2017-12-06] MEDS: Pantoprazole 40 mg EC Tab PO SCH (05:23)
[2017-12-06] MEDS: Metoprolol Succinate 100 mg XL Tab PO SCH (09:00)
[2017-12-06] MEDS: Cefpodoxime (Vantin) 200 mg Tab PO SCH ×2 (09:48→21:26)
[2017-12-06] MEDS: Iron Complex Polysacch 150mg Cap PO SCH (09:50)
[2017-12-06] MEDS: Potassium & Sodium Phosphate PO SCH (09:51)
--- NOTE | 2017-12-06 17:38 | PN ---
DATE: 12/06/2017 SUBJECTIVE: The patient is currently seen sitting up in a chair. She is doing relatively well. According to the staff on [facility], she is to be transferred to a long-term care facility tomorrow. MEDICATIONS: Medication list reviewed. The patient is on Ativan, Benadryl, Colace, Ferrex, Haldol, Lipitor, Bystolic, Neutra-Phos, Norvasc, Protonix, Seroquel, Toprol, Vantin, Xanax, and Zestril. PHYSICAL EXAMINATION: VITAL SIGNS: Blood pressure today 154/61, temperature 98, respiratory rate 19 with a pulse of 60. HEENT: Normocephalic, atraumatic. Conjunctivae are pink. Sclerae are nonicteric. NECK: Supple. No neck vein distention. CHEST: Clear to auscultation and percussion. No rales or rhonchi or wheezing. CARDIOVASCULAR: Shows a regular rate rhythm without audible murmurs, rubs or gallops. ABDOMEN: Soft. Bowel sounds are normal. No rebound, no guarding, no masses. EXTREMITIES: Show no cyanosis, clubbing or edema. Distal lower extremity pulses are normal. LABORATORY DATA AND IMAGING: CBC done 3 days ago, white blood cell count 8.1, hemoglobin 10.9 with a platelet count of 317. Chemistries show normal electrolytes, BUN 80 with a creatinine of 0.6. Urine cultures are positive for E coli. Blood cultures were negative at 3 days. ASSESSMENT: 1. Status post altered mental status. This has resolved. The patient appears to be back to baseline and she is not agitated today. 2. Status post mild elevation of BUN and creatinine likely secondary to volume depletion and perhaps Escherichia coli urinary tract infection. BUN and creatinine are normal. 3. Hypertension. Blood pressure control is acceptable. Systolics are in the 150s with diastolics less than 80. The patient will continue present medication as adjusted by Dr. Rowe yesterday. 4. History of mild anemia. Hemoglobin is stable at 10.9 acceptable. 5. History of mild hyperlipidemia. The patient from my standpoint may continue statin therapy along with a low cholesterol, low-fat diet. PLAN: 1. Agree with current blood pressure medication. 2. No further renal or hypertension workup necessary at this time as the patient is being transferred to the long-term care facility in the next 24 hours. 3. We will discontinue formal renal followup at this point in time. Amador Cheema MD
--- NOTE | 2017-12-06 18:31 | CON ---
DATE: 12/06/2017 GASTROENTEROLOGY CONSULTATION REQUESTING PHYSICIAN: Joaquin Dupree MD. REASON FOR CONSULTATION: I have been asked to see this 82-year-old female admitted to the hospital on 11/28 for altered mental status, dehydration, and generalized weakness, for anemia. The patient was noted to have heme-positive stools. Her hemoglobin has been stable in the 10.5-g range. She denies any abdominal pain, nausea, vomiting, or rectal bleeding. She does admit to frequent constipation, averaging two to three bowel movements a week. She did have a colonoscopy approximately 10 years ago which did not reveal any neoplasms in the colon. She currently denies any abdominal pain, nausea, vomiting, rectal bleeding, or melena. Patient was admitted with acute renal insufficiency secondary to dehydration which has improved. PAST MEDICAL HISTORY: Notable for hypertension, chronic headaches, and spinal stenosis. SOCIAL HISTORY: She denies cigarette smoking or alcohol use. FAMILY HISTORY: Noncontributory. REVIEW OF SYSTEMS: Fourteen-point review of systems is notable for constipation and generalized weakness. PHYSICAL EXAMINATION: GENERAL: A well-developed female, lying in bed, in no acute distress. VITAL SIGNS: Reveal temperature of 98, blood pressure 154/61, heart rate 60. HEENT: Reveals sclerae to be white. Conjunctivae pink. NECK: Supple. CHEST: Reveal lungs to be clear. HEART: Exam reveals regular rate and rhythm. ABDOMEN: Soft, nontender. EXTREMITIES: Show no edema. LABORATORY DATA: Reveal hemoglobin of 10.9, white blood cell count 8.1, platelet count 317,000. Chemistries reveal normal electrolytes. HOME MEDICATIONS: Include, pravastatin, Bystolic, lisinopril, calcium carbonate, vitamin D, baby aspirin, and alprazolam. IMPRESSION: An 82-year-old female with anemia, heme-positive stool, no evidence of active GI bleeding at this time. She was admitted to the hospital with altered mental status, acute renal insufficiency from dehydration, and generalized weakness. There is no evidence of active GI bleeding at this time. RECOMMENDATIONS: 1. I will start the patient on Colace 100 mg three times a day for constipation. 2. I have asked the patient to follow up with me in the office upon discharge for an elective endoscopy and colonoscopy. Copma Mcneill MD [facility] # [id number]
--- NOTE | 2017-12-06 23:00 | PN ---
DATE: SUBJECTIVE: An 82-year-old white female admitted to the hospital with change in mental status, confused, disorientation, urinary tract infection with E. coli. The patient has had a Psychological and Neurological workup and treatment for infection. Physical Therapy and Occupational Therapy, the patient is doing well, less confused, less disoriented. Responding well to medications. Afebrile, blood pressure 154/61. The patient is being transferred at some point when bed is available to a rehab facility in [facility] by her family. Joaquin Dupree MD
[2017-12-07] MEDS: Pantoprazole 40 mg EC Tab PO SCH (05:56)
[2017-12-07] MEDS: Cefpodoxime (Vantin) 200 mg Tab PO SCH (09:42)
[2017-12-07] MEDS: Metoprolol Succinate 100 mg XL Tab PO SCH (09:42)
[2017-12-07] MEDS: Potassium & Sodium Phosphate PO SCH (09:43)
[2017-12-07] MEDS: Iron Complex Polysacch 150mg Cap PO SCH (09:44)
[2017-12-07 09:48] VITALS: PULSE 76
[2017-12-07 09:56] VITALS: BP 104/55; RESP 18; TEMP 98.3; O2SAT 94
--- NOTE | 2017-12-07 10:56 | PN ---
DATE: SUBJECTIVE: An 82-year-old white female admitted to the hospital with change in mental status and urinary tract infection. The patient was recently confused and disorientated, treated for E. coli and urinary tract infection. The patient has improved markedly, still has some episodes of confusion; however, she is not agitated and does not need to be reassuring. Plan is to discharge the patient to rehab facility near her son in [place], [place]. PHYSICAL EXAMINATION: VITAL SIGNS: Stable. Physical examination is unremarkable. The patient is status post GI bleed, has ceased. Blood counts did not drop. The patient is on Protonix and on antibiotics. Joaquin Dupree MD
--- NOTE | 2017-12-07 12:09 | PN ---
DATE: 12/07/2017 SUBJECTIVE: The patient is lying in bed comfortable. She has not had any rectal bleeding. She continues with some constipation. PHYSICAL EXAMINATION: VITAL SIGNS: Reveal temperature of 98.3, blood pressure 104/55, heart rate of 76. HEENT: Reveal sclerae to be white. Conjunctivae pink. NECK: Supple. CHEST: Lungs are clear. HEART: Reveals regular rate and rhythm. ABDOMEN: Soft, nontender. EXTREMITIES: Show no edema. LABORATORY DATA: Reveal no new laboratory data. IMPRESSION: 1. Anemia with heme-positive stool. 2. Constipation. 3. Status post altered mental status with dehydration. RECOMMENDATIONS: 1. Continue Colace 100 mg three times a day. 2. Outpatient endoscopy and colonoscopy for anemia and heme-positive stool. 3. Awaiting placement IN subacute rehab. Compa Mcneill MD
--- NOTE | 2017-12-07 15:11 | CON ---
DATE: 12/07/2017 SUBJECTIVE: She is being seen today for a followup consultation. PRESENTATION: The patient is an 82-year-old female seen at bedside. Consult was originally called because the patient was brought into the emergency department by EMS for altered mental status. She was hallucinating. She told me she was seeing people in her home. Over the course of her visit, she was found to have a urinary tract infection with E. coli, which has been treated. She has been followed by Psychology, Neurology, and treated for infection. Nursing notes indicate that the patient has been calm and cooperative with periods of confusion over the past few days. Last week, she had such severe confusion and agitation that she was combative and necessitated medication and soft restrains for a quite a period of time. The patient today, when I approached her, remembers me. She is oriented to her name, place, year, but however, is unable to recall the name of the president. She additionally is very perturbed today, concerned that her landlord's daughter who she feels is a lesbian and has been trying to get her to be her girlfriend is not doing anything about the situation. She indicates that she is sore and stiff because of situation in her home that she has been hurt by the daughter of the landlord and she does not want to be her girlfriend. She cannot understand why there is no help for her with this situation. I reoriented the patient, reminded her that her son has the power of associate attorney and that certainly he can deal with any landlord as she might have. She is aware that she is going to go to a subacute rehab center when she leaves this hospital and that dealing with whatever situation is in her home is not imminent. However, she keeps coming back to this, she is a little bit agitated. She is not agitated, but she is upset. She is redirected easily. PHYSICAL EXAMINATION: VITAL SIGNS: Current vital signs include temperature of 98.6, pulse rate of 80, blood pressure 100/47, respiratory rate of 19, and O2 saturation of 95%. MEDICATIONS: Her current medications are Xanax 0.5 mg one p.o. b.i.d., Norvasc, Lipitor, Vantin, Benadryl 25 mg IM q. 12 hours as needed, it was last used on 12/01/2017, Colace, Haldol 1 mg IM q. 12 hours p.r.n. severe agitation, this was last given on 12/01/2017, Zestril, lorazepam 0.5 mg one p.o. t.i.d. p.r.n. agitation, last given on 12/02/2017, Toprol-XL, Protonix, iron supplement, potassium supplement, and Seroquel 50 mg one p.o. b.i.d. MENTAL STATUS EXAM: The patient is oriented to spheres. Speech rate and volume are within normal limits. Mood is anxious. Affect is constricted. Thoughts are goal directed. Thought concrete, simplistic and logical at times. She denies being suicidal or homicidal. Denies the presence of hallucinations, delusions, or paranoia. However, this system about her landlord and daughter that is lesbian, etc., appear to be . Current mental status is opposed to reality. Her focus and concentration are poor. 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 The patient's appetite is poor. She indicates that she does not very much like hospital food and her sleep is improving. DIAGNOSTIC IMPRESSION: Delirium secondary to urinary tract infection and hypertension. PLAN: The patient psychiatrically seems to have stabilized. She does have clearly ongoing periods of confusion, but she is more manageable and is able to be directed. Her urinary tract infection is clearing. The plan at discharge appears to be that the patient would be going to subacute rehab center for followup treatment. The patient is psychiatrically stable to go to the subacute center. I would recommend that she sees a psychiatrist within 48 to 72 hours after she arrives there just to continue to monitor her mental status. We will continue to follow this patient while in hospital. Shy Soliman APN
--- NOTE | 2017-12-08 06:40 | DS ---
HOSPITAL COURSE: The patient was admitted with change in mental status, confusion, disorientation, was found to have urinary tract infection with E. coli. The patient was seen in consultation by Dr. Chester for Infectious Disease, Dr. Hernandez for Psychiatry, and Dr. Coffman for Neurology. The patient was treated with antipsychotic medications, antianxiety medications, and she had to be restrained at certain times. Eventually, as she cleared infections, she became afebrile, white count dropped, she was back to her normal mental status except that she states I am somewhat confused and disoriented during her visit. Eventually, it was determined that she was now able to be discharged back home and she may need longer treatment and she was sent to a rehab by her son. FINAL DISCHARGE DIAGNOSES: Acute urinary tract infection, acute confusional disorder, chronic back pain and hypertension. Joaquin Dupree MD
== END 2017-12-07 14:42 | DRG 690 ==
LOC: ED 20:13 → ERH 23:50 → 3RNO 11-29 01:49 → OBSVTOIN 11-29 16:24 → 3RNO 11-30 07:29
PROVIDERS: ADMIT Internal Medicine; ATTEND Internal Medicine
DX: N39.0 Urinary tract infection, site not specified (principal); N17.9 Acute kidney failure, unspecified; E87.0 Hyperosmolality and hypernatremia; F05 Delirium due to known physiological condition; M62.82 Rhabdomyolysis; E83.39 Other disorders of phosphorus metabolism; R44.0 Auditory hallucinations; E86.0 Dehydration; D64.9 Anemia, unspecified; I73.9 Peripheral vascular disease, unspecified; B96.20 Unspecified Escherichia coli [E. coli] as the cause of diseases classified elsewhere; G89.29 Other chronic pain; I10 Essential (primary) hypertension; M54.9 Dorsalgia, unspecified; E78.00 Pure hypercholesterolemia, unspecified; E78.5 Hyperlipidemia, unspecified; F41.9 Anxiety disorder, unspecified; K59.00 Constipation, unspecified; R44.1 Visual hallucinations; E87.6 Hypokalemia; Z78.1 Physical restraint status

== ENCOUNTER 2018-04-08 10:05 | Emergency (ER) | payer MEDICARE, OTHER ==
[2018-04-08 10:05] VITALS: BMI 23.0
[2018-04-08 10:26] VITALS: O2SAT 99
--- NOTE | 2018-04-08 10:47 | ED PDOC ---
Arrival/HPI - General Chief Complaint: Headache Time Seen by Provider: 04/08/18 10:33 Historian: Patient - History of Present Illness Time/Duration: 1 week Symptom Onset: Gradual Symptom Course: Unchanged Quality: Aching Severity Level: Moderate Activities at Onset: Rest Associated Symptoms (Text): 04/08/18 10:44 Patient complains of approximately a one-week history of a bilateral occipital headache. No injury or trauma. No nausea or vomiting. No weakness. No numbness tingling or paresthesias. No neck pain. There is a history of headaches, but not in many years. No visual disturbance. She has had multiple previous imaging studies of her brain. Last in November of this year. No fever or chills. Past Medical History - Provider Review Nursing Documentation Reviewed: Yes - Infectious Disease Hx of Infectious Diseases: None - Tetanus Immunization Tetanus Immunization: Unknown - Reproductive Menopause: Yes - Cardiac Hx Cardiac Disorders: Yes Hx Hypertension: Yes - Pulmonary Hx Respiratory Disorders: No - Neurological Hx Neurological Disorder: No - HEENT Hx HEENT Disorder: No - Renal Hx Renal Disorder: No Other/Comment: UTI - Endocrine/Metabolic Hx Endocrine Disorders: No - Hematological/Oncological Hx Blood Disorders: No - Integumentary Hx Dermatological Disorder: No - Musculoskeletal/Rheumatological Hx Falls: Yes - Gastrointestinal Hx Gastrointestinal Disorders: No - Genitourinary/Gynecological Hx Genitourinary Disorders: No - Psychiatric Hx Psychophysiologic Disorder: No Hx Substance Use: No - Surgical History Other/Comment: benign right breast cyst "many yrs ago" - Anesthesia Hx Anesthesia: Yes Hx Anesthesia Reactions: No Hx Malignant Hyperthermia: No - Suicidal Assessment Feels Threatened In Home Enviroment: No Family/Social History - Physician Review Nursing Documentation Reviewed: Yes Family/Social History: Unknown Family HX Smoking Status: Never Smoked Hx Alcohol Use: No Hx Substance Use: No Hx Substance Use Treatment: No Allergies/Home Meds Allergies/Adverse Reactions: Allergies No Known Allergies Allergy (Verified 04/08/18 10:26) Home Medications: Home Meds Medication Instructions Recorded Confirmed Pravastatin Sodium [Pravachol] 40 mg PO HS 01/09/17 04/08/18 Alprazolam [Xanax Xr] 1 mg PO PRN 07/12/17 04/08/18 Cefixime [Suprax] 100 mg PO DAILY 04/08/18 04/08/18 Metoprolol Succinate [Toprol XL] 100 mg PO DAILY 04/08/18 04/08/18 Nitrofurantoin Macrocrystals 100 mg PO BID 04/08/18 04/08/18 [Macrobid] Pantoprazole [Protonix EC Tab] 40 mg PO DAILY 04/08/18 04/08/18 Pregabalin [Lyrica] 50 mg PO DAILY 04/08/18 04/08/18 QUEtiapine [Seroquel] 25 mg PO BID 04/08/18 04/08/18 Sulfamethoxazole/Trimethoprim 1 tab PO BID 04/08/18 04/08/18 [Bactrim DS Tab] Review of Systems - Physician Review All systems were reviewed & negative as marked: Yes - Review of Systems Constitutional: absent: Fatigue, Fevers Respiratory: absent: SOB, Cough Cardiovascular: absent: Chest Pain, Palpitations, Syncope Gastrointestinal: absent: Abdominal Pain, Nausea, Vomiting Neurological: Headache. absent: Dizziness, Focal Weakness, Gait Changes, Speech Changes, Facial Droop, Disequilibrium, Seizure Physical Exam Vital Signs Reviewed: Yes Vital Signs Temp Pulse Resp BP Pulse Ox 04/08/18 10:24 97.6 F 51 L 18 124/81 99 Temperature: Afebrile Blood Pressure: Normal Pulse: Bradycardic Respiratory Rate: Normal Appearance: Positive for: Well-Appearing, Non-Toxic, Comfortable Pain Distress: None Mental Status: Positive for: Alert and Oriented X 3 - Systems Exam Head: Present: Atraumatic, Normocephalic Pupils: Present: PERRL Extroacular Muscles: Present: EOMI Conjunctiva: Present: Normal Ears: Present: NORMAL TM, Normal Canal. No: Erythema, TM Bulging Mouth: Present: Moist Mucous Membranes Pharnyx: No: ERYTHEMA, EXUDATE, TONSILS ENLARGED Neck: Present: Normal Range of Motion Respiratory/Chest: Present: Clear to Auscultation, Good Air Exchange. No: Respiratory Distress, Accessory Muscle Use Cardiovascular: Present: Regular Rate and Rhythm, Normal S1, S2, Bradycardic. No: Murmurs Abdomen: No: Tenderness, Distention, Peritoneal Signs, Rebound, Guarding Upper Extremity: Present: Normal Inspection. No: Cyanosis, Edema Lower Extremity: Present: Normal Inspection. No: Edema Neurological: Present: GCS=15, CN II-XII Intact, Speech Normal, Motor Func Grossly Intact, Normal Sensory Function, Normal Cerebellar Funct, Gait Normal Skin: Present: Warm, Dry, Normal Color. No: Rashes Psychiatric: Present: Alert, Oriented x 3, Normal Insight, Normal Concentration Medical Decision Making ED Course and Treatment: 04/08/18 12:[address]: Creator : Delta Gonzalez MD COMPARISON:None comparison made with prior CT scan of the brain and MRI brain dated 11/28/2017 and 11/30/2017 respectively. FINDINGS: HEMORRHAGE:No acute parenchymal, subarachnoid or extra-axial hemorrhage. BRAIN:Mild chronic periventricular white matter ischemic changes again. . Previously noted small chronic appearing lacunar type infarcts scattered about the deep and subcortical white matter and both basal nuclei as well as left to lesser degree brainstem less well seen on this study compared to high- resolution MRI. Moderate generalized volume loss. VENTRICLES:No obstructive hydrocephalus. CALVARIUM:No acute calvarial fractures PARANASAL SINUSES:Frontal sinuses remain hypoplastic. Remaining visualized paranasal sinuses well-developed. No fluid levels seen to suggest acute sinusitis. No significant mucoperiosteal inflammatory changes. MASTOID AIR CELLS:Unremarkable as visualized. No inflammatory changes. OTHER FINDINGS: Changes of bilateral cataract surgery again noted. IMPRESSION: No acute intracranial hemorrhage. Mild chronic white matter ischemic changes less well seen compared the prior MRI. . Note multiple small discrete chronic appearing deep - subcortical white matter, basal nuclei and brainstem ischemic changes also poorly seen compared MRI as well. Mild moderate generalized volume loss 04/08/18 12:19 Headache improved post Ultram. - RAD Interpretation Radiology Orders: 04/08/18 10:41 HEAD W/O CONTRAST [CT] Stat CT scan of the head as read by the radiologist shows no acute findings. Fish Culturist: Radiologist - Medication Orders Current Medication Orders: Discontinued Medications Tramadol HCl (Ultram) 50 mg PO STAT STA Stop: 04/08/18 10:42 Last Admin: 04/08/18 11:01 Dose: 50 mg GREG Pain Assessment Document 04/08/18 11:01 GMI (Rec: 04/08/18 11:02 GMI [id number]) Pain Reassessment Is this a pain reassessment? Yes Sleep Is patient sleeping during reassessment? No Presence of Pain Presence of Pain Yes Location Pain Location Body Amplifier Mechanic Description Description Intermittent Intensity of Pain at present 5 Pain Behavior Facial Grimacing Alleviating Factors/Management Relaxation Techniques Techniques Alleviating Factors Distraction - Scribe Statement The provider has reviewed the documentation as recorded by the Scribe Adri Drake Provider Scribe Attestation: All medical record entries made by the Scribe were at my direction and personally dictated by me. I have reviewed the chart and agree that the record accurately reflects my personal performance of the history, physical exam, medical decision making, and the department course for this patient. I have also personally directed, reviewed, and agree with the discharge instructions and disposition. Disposition/Present on Arrival - Present on Arrival Any Indicators Present on Arrival: No History of DVT/PE: No History of Uncontrolled Diabetes: No Urinary Catheter: No History of Decub. Ulcer: No History Surgical Site Infection Following: None - Disposition Have Diagnosis and Disposition been Completed?: Yes Diagnosis: Headache Disposition: HOME/ ROUTINE Disposition Time: 12:20 Patient Plan: Discharge Condition: GOOD Discharge Instructions (ExitCare): Headache, Adult Additional Instructions: Keep appointment with PMD already scheduled in 2 days. Follow-up in the ER as needed. Prescriptions: Tramadol HCl [Ultram] 50 mg PO Q6 PRN #10 tab PRN Reason: Pain Forms: [employer] (K[place]itian)
--- NOTE | 2018-04-08 12:16 | CT ---
PROCEDURE: CT HEAD WITHOUT CONTRAST. HISTORY: Headache COMPARISON: None comparison made with prior CT scan of the brain and MRI brain dated 11/28/2017 and 11/30/2017 respectively. TECHNIQUE: Axial computed tomography images were obtained through the head/brain without intravenous contrast. Radiation dose: Total exam DLP = 864.91 mGy-cm. This CT exam was performed using one or more of the following dose reduction techniques: Automated exposure control, adjustment of the mA and/or kV according to patient size, and/or use of iterative reconstruction technique. FINDINGS: HEMORRHAGE: No acute parenchymal, subarachnoid or extra-axial hemorrhage. BRAIN: Mild chronic periventricular white matter ischemic changes again. . Previously noted small chronic appearing lacunar type infarcts scattered about the deep and subcortical white matter and both basal nuclei as well as left to lesser degree brainstem less well seen on this study compared to high-resolution MRI. Moderate generalized volume loss. VENTRICLES: No obstructive hydrocephalus. CALVARIUM: No acute calvarial fractures PARANASAL SINUSES: Frontal sinuses remain hypoplastic. Remaining visualized paranasal sinuses well-developed. No fluid levels seen to suggest acute sinusitis. No significant mucoperiosteal inflammatory changes. MASTOID AIR CELLS: Unremarkable as visualized. No inflammatory changes. OTHER FINDINGS: Changes of bilateral cataract surgery again noted. IMPRESSION: No acute intracranial hemorrhage. Mild chronic white matter ischemic changes less well seen compared the prior MRI. . Note multiple small discrete chronic appearing deep - subcortical white matter, basal nuclei and brainstem ischemic changes also poorly seen compared MRI as well. Mild moderate generalized volume loss
[2018-04-08 12:45] VITALS: BP 127/82; PULSE 82; RESP 19; TEMP 98
== END 2018-04-08 12:49 | disposition home or self-care (01) ==
LOC: ED 10:05
DX: R51 Headache (principal); I10 Essential (primary) hypertension

== ENCOUNTER 2018-04-11 11:52 | Emergency (ER) | payer MEDICARE, OTHER ==
[2018-04-11 11:53] VITALS: BMI 23.0
[2018-04-11 12:01] VITALS: TEMP 98.1; O2SAT 98
--- NOTE | 2018-04-11 13:02 | ED PDOC ---
Arrival/HPI - General Chief Complaint: Headache Time Seen by Provider: 04/11/18 12:07 Historian: Patient - History of Present Illness Narrative History of Present Illness (Text): you were treated in the ED today for hx of hypertension, cholesterol, arthritis , and was seen 02/06/[address] head without acute intracranial bleeding and taking tramadol which does help but here with persistent intermittent headache but otherwise without any nausea/vomiting/light sensitivity/dizziness/difficulty breathing/chest pain/abdomen pain/numbness/ tingling/loss of limb function/pain with urination. Time/Duration: 24 hours Symptom Onset: Gradual Symptom Course: Unchanged, Intermittent Quality: Aching Severity Level: 2 Activities at Onset: Rest Context: Sitting Past Medical History - Provider Review Nursing Documentation Reviewed: Yes - Travel History Have you recently traveled outside [place] w/in the past 3 mons?: No - Infectious Disease Hx of Infectious Diseases: None - Tetanus Immunization Tetanus Immunization: Unknown - Cardiac Hx Cardiac Disorders: Yes Hx Hypertension: Yes - Pulmonary Hx Respiratory Disorders: No - Neurological Hx Neurological Disorder: No - HEENT Hx HEENT Disorder: No - Renal Hx Renal Disorder: No Other/Comment: UTI - Endocrine/Metabolic Hx Endocrine Disorders: No - Hematological/Oncological Hx Blood Disorders: No - Integumentary Hx Dermatological Disorder: No - Musculoskeletal/Rheumatological Hx Falls: Yes - Gastrointestinal Hx Gastrointestinal Disorders: No - Genitourinary/Gynecological Hx Genitourinary Disorders: No - Psychiatric Hx Psychophysiologic Disorder: No Hx Substance Use: No - Surgical History Other/Comment: benign right breast cyst "many yrs ago" - Anesthesia Hx Anesthesia: Yes Hx Anesthesia Reactions: No Hx Malignant Hyperthermia: No - Suicidal Assessment Feels Threatened In Home Enviroment: No Family/Social History - Physician Review Nursing Documentation Reviewed: Yes Family/Social History: No Known Family HX Smoking Status: Never Smoked Hx Alcohol Use: No Hx Substance Use: No Hx Substance Use Treatment: No Allergies/Home Meds Allergies/Adverse Reactions: Allergies No Known Allergies Allergy (Verified 04/11/18 11:54) Home Medications: Home Meds Medication Instructions Recorded Confirmed Pravastatin Sodium [Pravachol] 40 mg PO HS 01/09/17 04/11/18 Alprazolam [Xanax Xr] 1 mg PO PRN 07/12/17 04/11/18 Cefixime [Suprax] 100 mg PO DAILY 04/08/18 04/11/18 Metoprolol Succinate [Toprol XL] 100 mg PO DAILY 04/08/18 04/11/18 Nitrofurantoin Macrocrystals 100 mg PO BID 04/08/18 04/11/18 [Macrobid] Pantoprazole [Protonix EC Tab] 40 mg PO DAILY 04/08/18 04/11/18 Pregabalin [Lyrica] 50 mg PO DAILY 04/08/18 04/11/18 QUEtiapine [Seroquel] 25 mg PO BID 04/08/18 04/11/18 Sulfamethoxazole/Trimethoprim 1 tab PO BID 04/08/18 04/11/18 [Bactrim DS Tab] Review of Systems - Review of Systems Constitutional: Normal Eyes: Normal ENT: Normal Respiratory: Normal Cardiovascular: Normal Gastrointestinal: Normal Genitourinary Female: Normal Musculoskeletal: Normal Skin: Normal Neurological: Headache Endocrine: Normal Hemo/Lymphatic: Normal Psychiatric: Normal Physical Exam Vital Signs Reviewed: Yes Vital Signs Temp Pulse Resp BP Pulse Ox 04/11/18 15:07 62 17 145/60 98 04/11/18 11:59 98.1 F 59 L 16 145/56 L 98 Temperature: Afebrile Blood Pressure: Hypertensive Pulse: Regular Respiratory Rate: Normal Appearance: Positive for: Well-Appearing, Non-Toxic, Comfortable Pain Distress: None Mental Status: Positive for: Alert and Oriented X 3 - Systems Exam Head: Present: Atraumatic, Normocephalic Pupils: Present: PERRL Extroacular Muscles: Present: EOMI Conjunctiva: Present: Normal Ears: Present: Normal Mouth: Present: Moist Mucous Membranes Pharnyx: Present: Normal Nose (External): Present: Atraumatic Nose (Internal): Present: Normal Inspection Neck: Present: Normal Range of Motion Respiratory/Chest: Present: Clear to Auscultation, Good Air Exchange Cardiovascular: Present: Regular Rate and Rhythm Abdomen: No: Tenderness, Distention, Normal Bowel Sounds, Peritoneal Signs, Rebound, Guarding, McBurney's Point Tender, Rovsing's Sign Present, Hernias, Feeding Tubes, Ostomy Tubes, Mass/Organomegaly, Scars, Other Back: Present: Normal Inspection Upper Extremity: Present: Normal Inspection Lower Extremity: Present: Normal Inspection Neurological: Present: GCS=15, CN II-XII Intact, Speech Normal, Motor Func Grossly Intact Skin: Present: Warm, Normal Color Psychiatric: Present: Alert, Oriented x 3, Normal Insight, Normal Concentration Medical Decision Making ED Course and Treatment: you were treated in the ED today for hx of hypertension, cholesterol, arthritis , and was seen 02/06/[address] head without acute intracranial bleeding and taking tramadol which does help but here with persistent intermittent headache but otherwise without any nausea/vomiting/light sensitivity/dizziness/difficulty breathing/chest pain/abdomen pain/numbness/ tingling/loss of limb function/pain with urination. You were otherwise breathing easily, pink moist lips, smiling and talking easily, good strength/ sensation, alert/oriented, walking easily, clear lungs, no abdomen tenderness, no fever temp 98.1, stable heart rate 59, stable breathing rate 16, excellent oxygen level 98% room air, elevated blood pressure 145/56_ which we recommend repeat in 2-3 days primary care office to determine further treatment, you have blood tests no infection count 9, stable blood level hemoglobin 12/platelets 392 , stable chemistry, urine test mild sign of infection, ct head radiology today with no acute findings, brain MRI 11/30/17 with no definate acute intracranial findings, tramadol, macrobid, observation done in the ED with improvement, had a long discussion and you wanted to go home, counselled to monitor symptoms and thus discharged home with safe ride. 1. Recommend tramadol as directed for pain. dont' work/drive/drink alcohol when using. 2. Recommend macrobid as directed for urine infection control. 3. Recommend follow-up primary care 2-3 days to review symptoms, referral to neurology to review your symptoms., referral to urology for ketones in urine for further care 4. If any worsening pain, fever, chills, nausea, vomiting, difficulty breathing, numbness, loss of limb function, pain with urination or any medical condition then return to the ED. Report Date : 04/11/2018 14:15:14 PROCEDURE: CT HEAD WITHOUT CONTRAST. Dictator : Wyatt Giraldo MD IMPRESSION: No acute finding 04/11/18 15:18 04/11/18 15:20 04/11/18 15:51 04/11/18 15:55 Reassessment Condition: Re-examined, Improved - Lab Interpretations Lab Results: 04/11/18 13:00 04/11/18 13:00 Lab Results 04/11/18 13:00: Sodium 140, Potassium 4.5, Chloride 100, Carbon Dioxide 26, Anion Gap 19, BUN 21, Creatinine 0.8, Est GFR ( Amer) > 60, Est GFR (Non- Af Amer) > 60, Random Glucose 107, Calcium 10.1, Magnesium 1.9, Total Bilirubin 0.5, AST 29, ALT 33, Alkaline Phosphatase 79, Lactate Dehydrogenase 537, Total Creatine Kinase 77, Troponin I < 0.01, Total Protein 8.9 H, Albumin 5.0 H, Globulin 3.9, Albumin/Globulin Ratio 1.3 04/11/18 13:00: Urine Color Yellow, Urine Appearance Clear, Urine pH 6.0, Ur Specific [place] 1.020, Urine Protein Negative, Urine Glucose (UA) Negative, Urine Ketones Trace H, Urine Blood Negative, Urine Nitrate Negative, Urine Bilirubin Negative, Urine Urobilinogen 0.2, Ur Leukocyte Esterase Small H, Urine RBC 0 - 2, Urine WBC 5 - 10, Ur Epithelial Cells 4 - 5, Amorphous Sediment Small, Urine Bacteria Large, Urine Other [place]yeast 04/11/18 13:00: PT 10.7, INR 0.94, APTT 27.7 04/11/18 13:00: WBC 9.3, RBC 4.05, Hgb 12.5, Hct 37.0, MCV 91.4, MCH 30.9, MCHC 33.8, RDW 13.2, Plt Count 392, MPV 10.8, Gran % 82.0 H, Lymph % (Auto) 13.7 L, [place] % (Auto) 3.7, Eos % (Auto) 0.4 L, Baso % (Auto) 0.2, Gran # 7.63 H, Lymph # (Auto) 1.3, [place] # (Auto) 0.3, Eos # (Auto) 0.0, Baso # (Auto) 0.02 I have reviewed the lab results: Yes - RAD Interpretation Radiology Orders: 04/11/18 13:00 HEAD W/O CONTRAST [CT] Stat - Medication Orders Current Medication Orders: Discontinued Medications Nitrofurantoin Macrocrystals (Macrobid) 100 mg PO STAT STA PRN Reason: Protocol Stop: 04/11/18 15:20 Tramadol HCl (Ultram) 50 mg PO STAT STA Stop: 04/11/18 13:01 Last Admin: 04/11/18 13:23 Dose: 50 mg MAR Pain Assessment Document 04/11/18 13:23 SF (Rec: 04/11/18 13:23 [email or web address]) Pain Reassessment Is this a pain reassessment? Yes Sleep Is patient sleeping during reassessment? No Presence of Pain Presence of Pain Yes Disposition/Present on Arrival - Present on Arrival Any Indicators Present on Arrival: No History of DVT/PE: No History of Uncontrolled Diabetes: No Urinary Catheter: No History of Decub. Ulcer: No History Surgical Site Infection Following: None - Disposition Have Diagnosis and Disposition been Completed?: Yes Diagnosis: Headache Disposition: HOME/ ROUTINE Disposition Time: 15:52 Patient Plan: Discharge Condition: IMPROVED Discharge Instructions (ExitCare): Headache, Adult (DC) Additional Instructions: you were treated in the ED today for hx of hypertension, cholesterol, arthritis , and was seen 02/06/[address] head without acute intracranial bleeding and taking tramadol which does help but here with persistent intermittent headache but otherwise without any nausea/vomiting/light sensitivity/dizziness/difficulty breathing/chest pain/abdomen pain/numbness/ tingling/loss of limb function/pain with urination. You were otherwise breathing easily, pink moist lips, smiling and talking easily, good strength/ sensation, alert/oriented, walking easily, clear lungs, no abdomen tenderness, no fever temp 98.1, stable heart rate 59, stable breathing rate 16, excellent oxygen level 98% room air, elevated blood pressure 145/56_ which we recommend repeat in 2-3 days primary care office to determine further treatment, you have blood tests no infection count 9, stable blood level hemoglobin 12/platelets 392 , stable chemistry, urine test mild sign of infection, ct head radiology today with no acute findings, brain MRI 11/30/17 with no definate acute intracranial findings, tramadol, macrobid, observation done in the ED with improvement, had a long discussion and you wanted to go home, counselled to monitor symptoms and thus discharged home with safe ride. 1. Recommend tramadol as directed for pain. dont work/drive/drink alcohol when using. 2. Recommend macrobid as directed for urine infection control. 3. Recommend follow-up primary care 2-3 days to review symptoms, referral to neurology to review your symptoms., referral to urology for ketones in urine for further care 4. If any worsening pain, fever, chills, nausea, vomiting, difficulty breathing, numbness, loss of limb function, pain with urination or any medical condition then return to the ED. Prescriptions: Nitrofurantoin Macrocrystals [Macrobid] 100 mg PO Q12 7 Days #14 cap traMADol [Ultram] 50 mg PO DAILY PRN 3 Days #3 tab PRN Reason: breakthrough pain Referrals: Joaquin Dupree MD [Primary Care Provider] - Follow up with primary Forms: [employer] (Turkmen)
[2018-04-11 13:40] LABS: BASO # 0.02 K/mm3 (0.0-2.0); BASO % 0.2 % (0.0-3.0); EOS % 0.4 % (1.5-5.0); GRAN # 7.63 (1.4-6.5); HEMOGLOBIN 12.5 g/dL (12.0-16.0); LYMPH # 1.3 (1.2-3.4); LYMPH % 13.7 % (22.0-35.0); MEAN CELL VOLUME 91.4 fl (80.0-105.0); MEAN CORPUSCULAR HEMOGLOBIN 30.9 pg (25.0-35.0); MEAN CORPUSCULAR HGB CONC 33.8 g/dl (31.0-37.0); MEAN PLATELET VOLUME 10.8 fl (7.0-11.0); MONO # 0.3 (0.1-0.6); MONO % 3.7 % (1.0-6.0); RBC 4.05 10^6/uL (3.5-6.1); RED CELL DISTRIBUTION WIDTH 13.2 % (11.5-14.5); WHITE BLOOD COUNT 9.3 10^3/ul (4.5-11.0)
[2018-04-11 13:49] LABS: ALB/GLOB RATIO 1.3 (1.1-1.8); ALT/SGPT 33 U/L (7-56); AST/SGOT 29 U/L (14-36); BLOOD UREA NITROGEN 21 mg/dL (7-21); CALCIUM 10.1 mg/dL (8.4-10.5); GFR NON-AFRICAN AMERICAN > 60
[2018-04-11 13:59] LABS: INR 0.94 (0.93-1.08); PARTIAL THROMBOPLASTIN TIME 27.7 Seconds (25.1-36.5); PROTHROMBIN TIME 10.7 SECONDS (9.4-12.5)
[2018-04-11 14:02] LABS: TROPONIN I < 0.01 ng/mL
--- NOTE | 2018-04-11 14:16 | CT ---
PROCEDURE: CT HEAD WITHOUT CONTRAST. HISTORY: 82yoF, with persistent recurrent headache. COMPARISON: 04/08/2018 TECHNIQUE: Axial computed tomography images were obtained through the head/brain without intravenous contrast. Radiation dose: Total exam DLP = 884 mGy-cm. This CT exam was performed using one or more of the following dose reduction techniques: Automated exposure control, adjustment of the mA and/or kV according to patient size, and/or use of iterative reconstruction technique. FINDINGS: HEMORRHAGE: No intracranial hemorrhage. BRAIN: No mass effect or edema. No atrophy or chronic microvascular ischemic changes. VENTRICLES: Unremarkable. No hydrocephalus. CALVARIUM: Unremarkable. PARANASAL SINUSES: Unremarkable as visualized. No significant inflammatory changes. MASTOID AIR CELLS: Unremarkable as visualized. No inflammatory changes. OTHER FINDINGS: None. IMPRESSION: No acute finding
[2018-04-11 15:07] VITALS: RESP 17
[2018-04-11 15:08] LABS: URINE BILIRUBIN NEGATIVE (NEGATIVE); URINE BLOOD NEGATIVE (NEGATIVE); URINE GLUCOSE (UA) NEGATIVE (NEGATIVE); URINE LEUKOCYTE ESTERASE SMALL Leu/uL (NEGATIVE); URINE PROTEIN NEGATIVE mg/dL (<30 mg/dL); URINE UROBILINOGEN 0.2 E.U./dL (<1 E.U./dL)
[2018-04-11 15:15] LABS: URINE APPEARANCE CLEAR (CLEAR); URINE COLOR YELLOW (YELLOW)
[2018-04-11 15:28] LABS: URINE BACTERIA LARGE (NEG); URINE RBC 0 - 2 /hpf (0-2)
[2018-04-11 15:29] LABS: URINE AMORPHOUS SEDIMENT SMALL
[2018-04-11 16:40] VITALS: BP 140/76; PULSE 65
== END 2018-04-11 16:42 | disposition home or self-care (01) ==
LOC: ED 11:52
DX: R51 Headache (principal); I10 Essential (primary) hypertension

== ENCOUNTER 2018-04-16 13:47 | Inpatient (IN) | payer MEDICARE, OTHER ==
[2018-04-16 15:08] LABS: VENOUS BLOOD GAS BASE EXCESS -1.8 mmol/L (0.0-2.0); VENOUS BLOOD GAS PO2 31 mm/Hg (30-55); VENOUS BLOOD PH 7.32 (7.32-7.43)
[2018-04-16 15:11] LABS: BASO # 0.01 K/mm3 (0.0-2.0); BASO % 0.1 % (0.0-3.0); EOS % 0.2 % (1.5-5.0); GRAN # 9.46 (1.4-6.5); GRAN % 81.7 % (50.0-68.0); HEMOGLOBIN 12.3 g/dL (12.0-16.0); LYMPH # 1.1 (1.2-3.4); LYMPH % 9.4 % (22.0-35.0); MEAN CELL VOLUME 89.8 fl (80.0-105.0); MEAN CORPUSCULAR HEMOGLOBIN 30.6 pg (25.0-35.0); MEAN CORPUSCULAR HGB CONC 34.1 g/dl (31.0-37.0); MEAN PLATELET VOLUME 10.9 fl (7.0-11.0); MONO % 8.6 % (1.0-6.0); RBC 4.02 10^6/uL (3.5-6.1); RED CELL DISTRIBUTION WIDTH 13.1 % (11.5-14.5); WHITE BLOOD COUNT 11.6 10^3/ul (4.5-11.0)
[2018-04-16 15:20] LABS: PARTIAL THROMBOPLASTIN TIME 26.1 Seconds (25.1-36.5); PROTHROMBIN TIME 11.4 SECONDS (9.4-12.5)
[2018-04-16 15:21] LABS: ALB/GLOB RATIO 1.3 (1.1-1.8); ALBUMIN 4.7 g/dL (3.0-4.8); ALT/SGPT 30 U/L (7-56); AST/SGOT 34 U/L (14-36); BLOOD UREA NITROGEN 31 mg/dL (7-21); CALCIUM 10.2 mg/dL (8.4-10.5); GFR AFRICAN-AMERICAN > 60; GFR NON-AFRICAN AMERICAN 53
[2018-04-16 15:27] LABS: B-TYPE NATRIURETIC PEPTIDE 294 pg/mL (0-450); TROPONIN I < 0.01 ng/mL
[2018-04-16] MEDS ORDERED: DiphenhydrAMINE 50 mg/ml Inj IVP STA (15:29)
--- NOTE | 2018-04-16 15:37 | RAD ---
HISTORY: Sepsis Patient COMPARISON: 12/03/2017 FINDINGS: LUNGS: No active pulmonary disease. PLEURA: No significant pleural effusion identified, no pneumothorax apparent. CARDIOVASCULAR: No radiographic findings to suggest acute or significant cardiovascular disease. OSSEOUS STRUCTURES: No significant abnormalities. VISUALIZED UPPER ABDOMEN: Normal. OTHER FINDINGS: None. IMPRESSION: No active disease. No significant interval change compared to the prior examination(s).
--- NOTE | 2018-04-16 15:37 | CT ---
PROCEDURE: CT HEAD WITHOUT CONTRAST. HISTORY: Altered mental status. COMPARISON: 04/11/2018. TECHNIQUE: Axial computed tomography images were obtained through the head/brain without intravenous contrast. Coronal and sagittal reconstructed images. Radiation dose: Total exam DLP = 894.14 mGy-cm. This CT exam was performed using one or more of the following dose reduction techniques: Automated exposure control, adjustment of the mA and/or kV according to patient size, and/or use of iterative reconstruction technique. FINDINGS: HEMORRHAGE: No intracranial hemorrhage. BRAIN: No mass effect or edema. Age related senescent changes. VENTRICLES: Unremarkable. No hydrocephalus. CALVARIUM: Unremarkable. Hyperostotic changes normal variant PARANASAL SINUSES: Unremarkable as visualized. No significant inflammatory changes. MASTOID AIR CELLS: Unremarkable as visualized. No inflammatory changes. OTHER FINDINGS: None. IMPRESSION: No acute intracranial abnormalities. No significant findings to account for the clinical presentation. No significant interval change compared to the prior examination(s).
--- NOTE | 2018-04-16 15:45 | ED PDOC ---
Arrival/HPI - General Chief Complaint: Dizziness/Lightheaded Time Seen by Provider: 04/16/18 14:01 Historian: Patient EM Caveat: Altered Mental Status - History of Present Illness Narrative History of Present Illness (Text): 82 year old female w/ past medical history of november, admission for acute confusional state w/ + uti , hypertension,walker dependent ambulation hypercholesterolemia,walker GERD, recent Emergency department visit for similar complaint of ct (-) recurring headache on day 4 of macrobid bid presents complaining of over a week of decreased appetite and poor po intake as per family and friends/ generalized headache recalcitrant to prescribed analegsics as well as alteration of mental status characterized as per family as "forgetting to how to work her long standing cellphone" " increased forgetfullness,",recent falls w/ rt knee abrasion , and other behavior off from her baseline. 04/16/18 15:35 Past Medical History - Provider Review Nursing Documentation Reviewed: Yes - Infectious Disease Hx of Infectious Diseases: None - Tetanus Immunization Tetanus Immunization: Unknown - Cardiac Hx Cardiac Disorders: Yes Hx Hypertension: Yes - Pulmonary Hx Respiratory Disorders: No - Neurological Hx Neurological Disorder: No - HEENT Hx HEENT Disorder: No - Renal Hx Renal Disorder: No Other/Comment: UTI - Endocrine/Metabolic Hx Endocrine Disorders: No - Hematological/Oncological Hx Blood Disorders: No - Integumentary Hx Dermatological Disorder: No - Musculoskeletal/Rheumatological Hx Falls: Yes - Gastrointestinal Hx Gastrointestinal Disorders: No - Genitourinary/Gynecological Hx Genitourinary Disorders: No - Psychiatric Hx Psychophysiologic Disorder: No Hx Substance Use: No - Surgical History Other/Comment: benign right breast cyst "many yrs ago" - Anesthesia Hx Anesthesia: Yes Hx Anesthesia Reactions: No Hx Malignant Hyperthermia: No - Suicidal Assessment Feels Threatened In Home Enviroment: No Family/Social History - Physician Review Nursing Documentation Reviewed: Yes Family/Social History: No Known Family HX Smoking Status: Never Smoked Hx Alcohol Use: No Hx Substance Use: No Hx Substance Use Treatment: No Allergies/Home Meds Allergies/Adverse Reactions: Allergies No Known Allergies Allergy (Verified 04/11/18 11:54) Home Medications: Home Meds Medication Instructions Recorded Confirmed Pravastatin Sodium [Pravachol] 40 mg PO HS 01/09/17 04/16/18 Metoprolol Succinate [Toprol XL] 100 mg PO DAILY 04/08/18 04/16/18 Nitrofurantoin Macrocrystals 100 mg PO BID 04/08/18 04/16/18 [Macrobid] Pantoprazole [Protonix EC Tab] 40 mg PO DAILY 04/08/18 04/16/18 QUEtiapine [Seroquel] 25 mg PO DAILY 04/08/18 04/16/18 Review of Systems - Physician Review All systems were reviewed & negative as marked: Yes - Review of Systems Systems not reviewed;Unavailable: Altered Mental Status Constitutional: Normal Eyes: Normal ENT: Normal Respiratory: Normal Cardiovascular: Normal Gastrointestinal: Normal Genitourinary Female: Normal Musculoskeletal: Arthralgias Skin: Normal Neurological: Headache Endocrine: Normal Hemo/Lymphatic: Normal Psychiatric: Normal Physical Exam Vital Signs Reviewed: Yes Vital Signs Temp Pulse Resp BP Pulse Ox 04/16/18 16:14 70 18 126/68 99 04/16/18 13:53 97.6 F 64 18 156/83 H 99 Temperature: Afebrile Blood Pressure: Normal Pulse: Regular Respiratory Rate: Normal Appearance: Positive for: Non-Toxic, Comfortable Pain Distress: None Mental Status: Positive for: Alert and Oriented X 3 - Systems Exam Head: Present: Atraumatic, Normocephalic Pupils: Present: PERRL Extroacular Muscles: Present: EOMI Conjunctiva: Present: Normal Mouth: Present: Moist Mucous Membranes Neck: Present: Normal Range of Motion Respiratory/Chest: Present: Clear to Auscultation, Good Air Exchange. No: Respiratory Distress, Accessory Muscle Use Cardiovascular: Present: Regular Rate and Rhythm, Normal S1, S2. No: Murmurs Abdomen: No: Tenderness, Distention, Peritoneal Signs Back: Present: Normal Inspection Upper Extremity: Present: Normal Inspection. No: Cyanosis, Edema Lower Extremity: Present: Other (rt knee superficial abrasion, ant/posterior drawer sign (-). no valgus/varus ligamentous laxity, no hip apin w/ internal / external rotataion ). No: Edema Neurological: Present: GCS=15, CN II-XII Intact, Speech Normal Skin: Present: Warm, Dry, Normal Color. No: Rashes Psychiatric: Present: Alert, Oriented x 3, Normal Insight, Normal Concentration Medical Decision Making ED Course and Treatment: 82 year old woman p/w headaches /increased confusion/falls , on day 3/4 macrobid ams: r/o uti /toxic metabolic enphalopathy vs demntia onset risk stratify w/ labs serial neurological exams ekg : nsr @ [address]-t ischemic segmsnts . 04/16/18 16:01 04/16/18 16:02 - Lab Interpretations Lab Results: 04/16/18 14:45 04/16/18 14:45 Lab Results 04/16/18 14:45: Sodium 140, Chloride 103, Potassium 4.5, Carbon Dioxide 24, Anion Gap 18, BUN 31 H, Creatinine 1.0, Est GFR ( Amer) > 60, Est GFR ( Non-Af Amer) 53, Random Glucose 105, Calcium 10.2, Magnesium 2.1, Total Bilirubin 1.0, AST 34, ALT 30, Alkaline Phosphatase 79, Troponin I < 0.01, NT- Pro-B Natriuret Pep 294, Total Protein 8.5 H, Albumin 4.7, Globulin 3.8, Albumin /Globulin Ratio 1.3 04/16/18 14:45: pO2 31, VBG pH 7.32, VBG pCO2 48.0, VBG HCO3 24.7, VBG Total CO2 26.2, VBG O2 Sat (Calc) 59.8, VBG Base Excess -1.8 L, VBG Potassium 4.5, Sodium 135.0, Chloride 103.0, Glucose 106 H, Lactate 1.3, FiO2 21.0, Venous Blood Potassium 4.5 04/16/18 14:45: PT 11.4, INR 1.00, APTT 26.1 04/16/18 14:45: WBC 11.6 H D, RBC 4.02, Hgb 12.3, Hct 36.1, MCV 89.8, MCH 30.6, MCHC 34.1, RDW 13.1, Plt Count 391, MPV 10.9, Gran % 81.7 H, Lymph % (Auto) 9.4 L, [place] % (Auto) 8.6 H, Eos % (Auto) 0.2 L, Baso % (Auto) 0.1, Gran # 9.46 H, Lymph # (Auto) 1.1 L, [place] # (Auto) 1.0 H, Eos # (Auto) 0.0, Baso # (Auto) 0.01 - RAD Interpretation Radiology Orders: 04/16/18 14:01 CHEST PORTABLE [RAD] Stat 04/16/18 14:03 HEAD W/O CONTRAST [CT] Stat 04/16/18 16:04 KNEE RIGHT 2 VIEWS (AP & LAT) [RAD] Stat PELVIS ONE VIEW [RAD] Stat - Medication Orders Current Medication Orders: Discontinued Medications Acetaminophen (Tylenol 325mg Tab) 650 mg PO STAT STA Stop: 04/16/18 15:31 Last Admin: 04/16/18 16:01 Dose: 650 mg MAR Pain/Vitals Document 04/16/18 16:01 [facility] (Rec: 04/16/18 16:01 LM [id number]) Pain Reassessment Is This A Pain ReAssessment? Yes Sleep Is patient sleeping during reassessment? No Presence of Pain Presence of Pain Yes Location Pain Location Body Folder Machine Intensity 2 Diphenhydramine HCl (Benadryl) 25 mg IVP STAT STA Stop: 04/16/18 15:30 Last Admin: 04/16/18 16:00 Dose: 25 mg IVP Administration Document 04/16/18 16:00 [facility] (Rec: 04/16/18 16:00 [facility] [id number]) Charges for Administration # of IVP Administrations 1 Lactated Ringer's 1,000 ml/ IV (SUPPLIES) 1,000 mls @ 3,401.94 mls/hr IV ONCE ONE PRN Reason: 60 ML/KG/HR Stop: 04/16/18 14:02 Last Admin: 04/16/18 15:57 Dose: 3,401.94 mls/hr eMAR Start Stop Document 04/16/18 15:57 [facility] (Rec: 04/16/18 15:58 LM [id number]) Intravenous Solution Start Date 04/16/18 Start Time 15:57 End Date 04/16/18 End time 16:20 Total Infusion Time 23 Metoclopramide HCl (Reglan) 10 mg IVPB STAT STA Stop: 04/16/18 15:30 Last Admin: 04/16/18 16:00 Dose: 10 mg eMAR Start Stop Document 04/16/18 16:00 [facility] (Rec: 04/16/18 16:00 LM [id number]) Intravenous Solution Start Date 05/20/18 Start Time 16:00 End Date 04/16/18 End time 16:01 Total Infusion Time 1 Tetanus/Reduced Diphtheria/Acell Pertussis (Boostrix Vaccine Inj) 0.5 ml IM .ONCE ONE Stop: 04/16/18 16:06 Disposition/Present on Arrival - Present on Arrival Any Indicators Present on Arrival: No History of DVT/PE: No History of Uncontrolled Diabetes: No Urinary Catheter: No History of Decub. Ulcer: No History Surgical Site Infection Following: None - Disposition Have Diagnosis and Disposition been Completed?: Yes Diagnosis: Altered mental status, Intractable headache, Fall Disposition: HOSPITALIZED Disposition Time: 18:37 Patient Plan: Admission, Telemetry Condition: FAIR Referrals: Joaquin Dupree MD [Primary Care Provider] - Follow up with primary Forms: [employer] ([employer])
[2018-04-16] MEDS ORDERED: TDAP Vaccine 0.5 mL Syr IM ONE (16:05)
--- NOTE | 2018-04-16 17:05 | RAD ---
PROCEDURE: Radiographs of the pelvis. HISTORY: s/p fall COMPARISON: None. FINDINGS: BONES: Pelvic Bones: Unremarkable. Hips: Mild and symmetrical degenerative changes. No evidence of protrusio. JOINTS: Sacroiliac Joints: Unremarkable Pubic Symphysis: Unremarkable. OTHER FINDINGS: None. IMPRESSION: No acute findings related to/accounting for the clinical presentation.
--- NOTE | 2018-04-16 17:07 | RAD ---
PROCEDURE: Right Knee Radiographs. HISTORY: fall COMPARISON: None. FINDINGS: BONES: No acute fracture. Proliferative hypertrophic changes emanating from the femoral condyle and tibial plateau regions.. No fracture. JOINTS: No appreciable degenerative change. JOINT EFFUSION: None. OTHER FINDINGS: Soft tissue swelling adjacent to the medial femoral condyles. IMPRESSION: Soft tissue swelling without acute articular or osseous abnormality.
[2018-04-16] MEDS ORDERED: Dexamethasone 4 mg/1 ml IVP STA (18:41)
[2018-04-16 18:52] LABS: URINE APPEARANCE SLIGHT-CLOUDY (CLEAR); URINE BILIRUBIN NEGATIVE (NEGATIVE); URINE BLOOD NEGATIVE (NEGATIVE); URINE COLOR YELLOW (YELLOW); URINE GLUCOSE (UA) NEGATIVE (NEGATIVE); URINE LEUKOCYTE ESTERASE MODERATE Leu/uL (NEGATIVE); URINE PROTEIN TRACE mg/dL (<30 mg/dL); URINE UROBILINOGEN 0.2 E.U./dL (<1 E.U./dL)
[2018-04-16 19:04] LABS: URINE HYALINE CAST 0 - 2 /hpf; URINE RBC 0 - 2 /hpf (0-2)
[2018-04-16 19:05] LABS: URINE BACTERIA FEW (NEG)
[2018-04-16 21:56] VITALS: BMI 23.9
[2018-04-17 09:16] LABS: GRAN # 7.66 (1.4-6.5); GRAN % 89.4 % (50.0-68.0); HEMOGLOBIN 12.5 g/dL (12.0-16.0); LYMPH # 0.7 (1.2-3.4); LYMPH % 8.6 % (22.0-35.0); MEAN CELL VOLUME 90.4 fl (80.0-105.0); MEAN CORPUSCULAR HEMOGLOBIN 30.9 pg (25.0-35.0); MEAN CORPUSCULAR HGB CONC 34.2 g/dl (31.0-37.0); MONO # 0.2 (0.1-0.6); RBC 4.05 10^6/uL (3.5-6.1); RED CELL DISTRIBUTION WIDTH 13.1 % (11.5-14.5); WHITE BLOOD COUNT 8.6 10^3/ul (4.5-11.0)
[2018-04-17 09:41] LABS: FREE T4 1.52 ng/dL (0.78-2.19)
--- NOTE | 2018-04-17 10:31 | MRI ---
PROCEDURE: MRI BRAIN WITHOUT CONTRAST HISTORY: falls/headache COMPARISON: None. TECHNIQUE: Multiplanar, multisequence MR images of the brain were obtained without intravenous contrast enhancement. FINDINGS: HEMORRHAGE: None DWI: No evidence of an acute or early subacute infarction. BRAIN PARENCHYMA: No mass effect or edema. Mild atrophy and mild chronic periventricular white matter ischemic disease. VENTRICLES: Unremarkable. No hydrocephalus. CRANIUM: Unremarkable. ORBITS: Grossly unremarkable. PARANASAL SINUSES/MASTOIDS: Clear VASCULAR SYSTEM: Skull base flow voids intact. OTHER FINDINGS: None. IMPRESSION: Mild atrophy and mild chronic periventricular white matter ischemic disease.
[2018-04-17] MEDS: Pantoprazole 40 mg EC Tab PO SCH (11:28)
[2018-04-17] MEDS: cefTRIAXone 1 gm 1 GM/100 ML BAG IVPB SCH (11:28)
[2018-04-17] MEDS: Metoprolol Succinate 100 mg XL Tab PO SCH (11:28)
--- NOTE | 2018-04-17 14:48 | HP ---
HISTORY OF PRESENT ILLNESS: An 82-year-old white female admitted on 04/16/2018. The patient is 82 years old, who has a history of chronic back problems, history of back surgery, history of mild memory loss recently. Recent multiple episodes of ataxia, difficulty walking, uses a walker. The patient has had multiple admissions to the emergency room for severe headaches in the last several weeks and also some memory loss and is also complaining of some dysuria and burning over the last week or so. The patient was found to have urinary tract infection, was started on Rocephin. She had an elevated white count with left shift. CT was negative. CT of the knee shows bilateral effusions. CT of the pelvis was negative. The patient is still complaining of memory loss and inability to take care of herself at home by herself. I saw her close to her son in the past. PHYSICAL EXAMINATION: GENERAL: She is a well-developed, well-nourished female with poor memory. HEENT: Within normal limits. HEART: Regular sinus rhythm. No significant murmurs. CHEST: Clear to auscultation and percussion. ABDOMEN: Benign. EXTREMITIES: Without cyanosis, clubbing or edema. NEUROLOGIC: The patient is oriented to place and person, but not to time. Short-term memory deficits. Otherwise, neurologic examination grossly intact. IMPRESSION: The patient is scheduled for a CT, IV antibiotics and neurological consultation. Joaquin Dupree MD
--- NOTE | 2018-04-17 18:02 | CARD ---
APPROVED REPORT EKG Measurement Heart [id number] <Conclusion> Normal sinus rhythm Left axis deviation Abnormal ECG
--- NOTE | 2018-04-17 22:43 | CON ---
DATE: 04/17/2018 HISTORY OF PRESENT ILLNESS: This is an 82-year-old white female with past medical history of hypertension, hypercholesterolemia, GERD. The patient complained of recurring headaches and also felt confused, decreased appetite, and altered mental status as per family and called to evaluate the patient. The patient has a recent fall with right knee abrasion. ALLERGIES: NO KNOWN DRUG ALLERGY. HOME MEDICATIONS: Metoprolol, Pravachol, and Seroquel. LABORATORY DATA: WBC 11.6, hemoglobin 12.3, hematocrit 36.1, and platelets 391. Sodium 140, potassium 4.5, chloride 103, CO2 of 24. Glucose 105. BUN 31 and creatinine 1. REVIEW OF SYSTEMS: A 10-point review of systems was negative. PHYSICAL EXAMINATION: VITAL SIGNS: Blood pressure 156/83. HEENT: Normocephalic and atraumatic. NECK: Supple. NEUROLOGIC: Awake, alert, and oriented to self and place. Cranial nerves II through XII are tested. Pupils reactive. EOM intact. Visual herrera full. No facial asymmetry. Tongue midline. Motor examination: Moves all the extremities equally. Tone normal. Deep tendon reflexes 1+. Both plantars are downgoing. Sensory appears intact. Cerebellar gait deferred. IMPRESSION: Mild intermittent confusional state, possibly toxic metabolic encephalopathy. An MRI is negative. Continue present management, may be physical therapy for ambulation. We will follow up. Zain Coffman MD
[2018-04-18] MEDS: Pantoprazole 40 mg EC Tab PO SCH (10:34)
[2018-04-18] MEDS: Metoprolol Succinate 100 mg XL Tab PO SCH (10:36)
--- NOTE | 2018-04-18 12:09 | PN ---
DATE: 04/18/2018 SUBJECTIVE: An 82-year-old white female was admitted to the hospital with severe headaches, chronic muscle aches and pains, change in mental status, confusion, disorientation; treated with IV Rocephin for urinary tract infection. She is afebrile. [place] [address] to 8000. She has temperature of 98 today. She was seen by Neurology. MRI was negative, possible toxic metabolic encephalopathy, possible early dementia. The patient is responding to physical therapy and occupational therapy. She will be continued on IV antibiotics and possible evaluation physical therapy because of multiple falls. Joaquin Dupree MD
[2018-04-18] MEDS: cefTRIAXone 1 gm 1 GM/100 ML BAG IVPB SCH ×2 (12:15→12:29)
[2018-04-19 06:18] LABS: HEMOGLOBIN 11.2 g/dL (12.0-16.0); MEAN CELL VOLUME 91.4 fl (80.0-105.0); MEAN CORPUSCULAR HGB CONC 32.8 g/dl (31.0-37.0); MEAN PLATELET VOLUME 11.1 fl (7.0-11.0); RBC 3.73 10^6/uL (3.5-6.1); RED CELL DISTRIBUTION WIDTH 13.4 % (11.5-14.5); WHITE BLOOD COUNT 8.2 10^3/ul (4.5-11.0)
[2018-04-19 06:58] LABS: ALB/GLOB RATIO 1.1 (1.1-1.8); ALBUMIN 3.6 g/dL (3.0-4.8); ALT/SGPT 23 U/L (7-56); AST/SGOT 32 U/L (14-36); BLOOD UREA NITROGEN 20 mg/dL (7-21); GFR AFRICAN-AMERICAN > 60; GFR NON-AFRICAN AMERICAN > 60
[2018-04-19] MEDS ORDERED: Naproxen 550 mg Tab PO PRN (08:00)
[2018-04-19 09:39] VITALS: O2SAT 97
--- NOTE | 2018-04-19 09:57 | PN ---
DATE: 04/18/2018 NEUROLOGY FOLLOWUP CHIEF COMPLAINT: Followup altered mental status. SUBJECTIVE: Patient is seen and examined at the bedside, doing well. She recognizes me from her previous hospital visit. Her MRI of the brain showed no acute intracranial abnormality. Likely she had toxic metabolic encephalopathy superimposed underlying chronic to severe cognitive impairment. She is following all commands. PAST MEDICAL HISTORY: Spinal stenosis, hypertension, anxiety. REVIEW OF SYSTEMS: A 14-point review of systems is negative as mentioned in HPI. MEDICATIONS: Reviewed by nurses' reconciliation sheet. ALLERGIES: NO KNOWN DRUG ALLERGIES. SOCIAL HISTORY: No illicit drug use, smoking or EtOH abuse. PHYSICAL EXAMINATION: VITAL SIGNS: Temperature is 98.1, pulse rate 62, blood pressure 148/57, respiratory rate 19, oxygen saturation is 97% on room air. GENERAL: The patient is sitting up in bed, in no acute distress. HEENT: Head is atraumatic and normocephalic. PERRLA. Extraocular muscles are intact. NECK: Supple. No JVD. No adenopathy noted. LUNGS: Clear to auscultation. No adventitious sounds. HEART: S1 and S2. Normal rate and rhythm. No murmurs, rubs or gallops. ABDOMEN: Soft, nontender and nondistended. Bowel sounds are present. EXTREMITIES: No clubbing. No cyanosis. Peripheral pulses are 2+ felt bilaterally. NEUROLOGIC: The patient is alert, oriented to person and place, not much to month or year. Recall after 5 minutes is 0/3. Poor attention and slow thought process. Cranial nerves II through XII intact. Motor: Slight increased tone throughout. Moving all extremities equally. Toes are downgoing bilaterally. Sensory: Light touch, pinprick, proprioception, vibration intact. DTRs are 1+ throughout. Coordination: [id number] intact. Gait is deferred for now. LABORATORY DATA: Sodium 140, potassium 4.5, chloride 103, CO2 of 24, BUN of 31 and creatinine 1. Random glucose of 105. ASSESSMENT AND PLAN: This is an 82-year-old woman with past medical history of hypertension, spinal stenosis, who came in for some mild transient confusion. MRI of the brain showed no acute intracranial abnormalities. Overall, her transient confusional state is secondary to possible some underlying transient toxic metabolic encephalopathy superimposed underlying [id number] cognitive impairment. At this time, recommend; 1. Seroquel 25 mg p.o. daily for any hallucinations. 2. Delirium precautions. 3. Avoid nighttime interruptions. 4. Continue with aspirin and statin for stroke prevention. 5. Continue PT and OT assessment for underlying deconditioned state. 6. No further neurological workup needed. Thank you for this followup. Christos Coffman MD
[2018-04-19] MEDS: cefTRIAXone 1 gm 1 GM/100 ML BAG IVPB SCH (10:19)
[2018-04-19] MEDS: Pantoprazole 40 mg EC Tab PO SCH (10:24)
[2018-04-19] MEDS: Metoprolol Succinate 100 mg XL Tab PO SCH (10:24)
[2018-04-19 11:25] LABS: URINE BILIRUBIN NEGATIVE (NEGATIVE); URINE BLOOD NEGATIVE (NEGATIVE); URINE GLUCOSE (UA) NEGATIVE (NEGATIVE); URINE LEUKOCYTE ESTERASE SMALL Leu/uL (NEGATIVE); URINE PROTEIN NEGATIVE mg/dL (<30 mg/dL); URINE UROBILINOGEN 0.2 E.U./dL (<1 E.U./dL)
[2018-04-19 11:26] LABS: URINE APPEARANCE CLEAR (CLEAR); URINE COLOR YELLOW (YELLOW)
[2018-04-19 11:31] LABS: URINE BACTERIA FEW (NEG); URINE RBC 0 - 2 /hpf (0-2)
--- NOTE | 2018-04-19 12:28 | PN ---
DATE: 04/19/2018 Isha Laird is an 83-year-old white female admitted with urinary tract infection, change in mental status, occasional back pain, severe headaches, leg pain. The patient did some physical therapy, but needed to stop yesterday because of severe headache and leg pain. The patient did have a CT and MRI of the head, which is normal. She just has some memory impairment. She is started on donepezil this morning. She is continuing on Seroquel. We will add something for headaches this morning also and continue some physical therapy, occupational therapy, continue IV antibiotics for urinary tract infection and attempt to get the patient back to [facility] for continued rehab. Joaquin Dupree MD
[2018-04-19 17:54] VITALS: BP 131/58; RESP 20; TEMP 98.7
[2018-04-19 19:53] VITALS: PULSE 54
[2018-04-20] MEDS ORDERED: Cefpodoxime (Vantin) 200 mg Tab PO SCH (10:00)
--- NOTE | 2018-04-21 07:54 | DS ---
HISTORY OF PRESENT ILLNESS: The patient is an 82-year-old white female, admitted to the hospital with confusion, disorientation, urinary tract infection, status post weakness and falling. The patient did physical therapy and occupational therapy. X-rays were negative. The patient was treated for a urinary tract infection with IV Rocephin. The patient initially has had severe headaches, was seen in consultation with Dr. Coffman. The patient had a CT and MRI of the brain, which were normal. Laboratory data were unremarkable. The patient was transferred to [facility] to continue rehabilitation and continue antibiotics. FINAL DISCHARGE DIAGNOSES: Severe headaches, weakness, unsteady gait, change in mental status, confusion, disorientation, mild cognitive disorder, memory loss and urinary tract infection. Joaquin Dupree MD
== END 2018-04-19 22:45 | DRG 689 ==
LOC: ED 13:47 → ERH 18:33 → 3RSO 20:06
PROVIDERS: ADMIT Internal Medicine; ATTEND Internal Medicine
DX: N39.0 Urinary tract infection, site not specified (principal); G92 Toxic encephalopathy; F03.90 Unspecified dementia, unspecified severity, without behavioral disturbance, psychotic disturbance, mood disturbance, and anxiety; I10 Essential (primary) hypertension; E78.00 Pure hypercholesterolemia, unspecified; K21.9 Gastro-esophageal reflux disease without esophagitis; M48.00 Spinal stenosis, site unspecified; R51 Headache; F41.9 Anxiety disorder, unspecified; R29.6 Repeated falls; S80.211A Abrasion, right knee, initial encounter; W19.XXXA Unspecified fall, initial encounter; Y92.009 Unspecified place in unspecified non-institutional (private) residence as the place of occurrence of the external cause